=== PATIENT | male | born 1970 | race Caucasian/White ===

== ENCOUNTER 2016-07-20 12:31 | Emergency (ER) | payer SELFPAY ==
--- NOTE | 2016-07-20 12:41 | ER Document Report ---
ED Medical Screen (RME) - General Stated Complaint: POSSIBLE RIGHT ARM INJURY Time seen by provider: 12:40 Mode of Arrival: Ambulatory Information source: Patient Notes: 45-year-old male presents to ED for injury to his right hand. He was sorting out recycle material and accidentally hit a piece of metal and now has pain worse in the first and fourth finger states it feels like it's crunching when he opens his hand. I have greeted and performed a rapid initial assessment of this patient. A comprehensive ED assessment and evaluation of the patient, analysis of test results and completion of medical decision making process will be conducted by an additional ED providers. TRAVEL OUTSIDE OF THE [place] IN LAST 30 DAYS: No - Related Data Allergies/Adverse Reactions: permethrin Allergy (Verified 02/14/16 11:35) Past Medical History - Social History Family history: None - Past Medical History Cardiac Medical History: Reports: Hx Hypertension Denies: Hx Heart Attack Pulmonary Medical History: Reports: Hx Bronchitis, Hx COPD Denies: Hx Asthma, Hx Pneumonia Neurological Medical History: Reports: Hx Migraine, Hx Seizures GI Medical History: Denies: Hx Cirrhosis, Hx Gastroesophageal Reflux Disease Musculoskeltal Medical History: Denies Hx Arthritis, Reports Hx Musculoskeletal Trauma - right hand Psychiatric Medical History: Reports: Hx Bipolar Disorder, Hx Depression Traumatic Medical History: Reports: Hx Fractures - right hand Infectious Medical History: Reports: Hx C-Diff Past Surgical History: Reports: Hx Orthopedic Surgery - Right hand - Immunizations Immunizations up to date: Yes Hx Diphtheria, Pertussis, Tetanus Vaccination: Yes - 2014
[2016-07-20] MEDS ORDERED: OXYCODONE-ACETAMINOPHEN 5-325 MG TABLET PO ONE (12:42)
--- NOTE | 2016-07-20 14:09 | ER Document Report ---
ED General - General Chief Complaint: Hand Pain Stated Complaint: POSSIBLE RIGHT ARM INJURY Mode of Arrival: Ambulatory Notes: 45-year-old male here with complaints of right hand pain that started earlier today. He states that a large piece of a metal gear fell onto his hand while he was at work. He states that he tried to work through the pain but could not bear it anymore. He is not taking any medication for the pain. He has tried placing an ice pack on the area for the swelling. He denies any numbness tingling weakness but states that he is unable to move his fingers due to the pain. TRAVEL OUTSIDE OF THE [place] IN LAST 30 DAYS: No - Related Data Allergies/Adverse Reactions: permethrin Allergy (Verified 07/20/16 12:41) Past Medical History - General Information source: Patient - Social History Smoking Status: Current Every Day Smoker Chew tobacco use (# tins/day): No Frequency of alcohol use: None Drug Abuse: None Family History: CAD, CVA, DM, Hyperlipidemia, Hypertension, Malignancy Patient has suicidal ideation: No Patient has homicidal ideation: No - Past Medical History Cardiac Medical History: Reports: Hx Hypertension Denies: Hx Heart Attack Pulmonary Medical History: Reports: Hx Bronchitis, Hx COPD Denies: Hx Asthma, Hx Pneumonia Neurological Medical History: Reports: Hx Migraine, Hx Seizures Renal/ Medical History: Denies: Hx Peritoneal Dialysis GI Medical History: Denies: Hx Cirrhosis, Hx Gastroesophageal Reflux Disease Musculoskeltal Medical History: Denies Hx Arthritis, Reports Hx Musculoskeletal Trauma - right hand Psychiatric Medical History: Reports: Hx Bipolar Disorder, Hx Depression Traumatic Medical History: Reports: Hx Fractures - right hand Infectious Medical History: Reports: Hx C-Diff Past Surgical History: Reports: Hx Orthopedic Surgery - Right hand - Immunizations Immunizations up to date: Yes Hx Diphtheria, Pertussis, Tetanus Vaccination: Yes - 2014 Review of Systems - Review of Systems Notes: See history of present illness for pertinent positive review of systems; otherwise all review of systems have been reviewed and are negative Physical Exam - Vital signs Vitals: Temp Pulse Resp BP Pulse Ox 97.9 F 65 16 206/103 H 95 07/20/16 12:36 07/20/16 12:36 07/20/16 12:36 07/20/16 12:36 07/20/16 12:36 - Notes Notes: PHYSICAL EXAMINATION: GENERAL: Well-appearing and in no acute distress. HEAD: Atraumatic, normocephalic. EYES: Pupils equal round and reactive to light, extraocular movements intact, sclera anicteric, conjunctiva are normal. ENT: nares patent, oropharynx clear without exudates. Moist mucous membranes. NECK: Normal range of motion, supple without lymphadenopathy LUNGS: CTAB and equal. No wheezes rales or rhonchi. HEART: Regular rate and rhythm without murmurs ABDOMEN: Soft, no tenderness. No guarding, no rebound EXTREMITIES: Normal range of motion, no pitting edema. No cyanosis. There is mild to moderate swelling overlying the second to fifth MCP joints on the left hand with diffuse tenderness to palpation; there is no wrist tenderness to palpation; there are no lacerations or other lesions visualized NEUROLOGICAL: Cranial nerves grossly intact. Normal sensory/motor exams. PSYCH: Normal mood, normal affect. SKIN: Warm, Dry, normal turgor, no rashes or lesions noted Course - Re-evaluation Re-evalutation: 07/20/16 14:12 MEDICAL DECISION MAKING: Concern for sprain versus fracture versus dislocation X-ray does not show any acute fractures or dislocations Will give prescription for meloxicam and Percocet Instructed follow-up PCP or orthopedic surgery next few days Patient understands and agrees to the plan of care - Vital Signs Vital signs: Temp Pulse Resp BP Pulse Ox 97.9 F 65 16 206/103 H 95 07/20/16 12:36 07/20/16 12:36 07/20/16 12:36 07/20/16 12:36 07/20/16 12:36 Discharge - Discharge Clinical Impression: Right hand pain Condition: Good Disposition: HOME, SELF-CARE Additional Instructions: You were seen in the emergency department at [facility]. Your x- ray did not show any fractures. If you were given any sedating medications ( such as Percocet), be sure not to operate heavy machinery (example - driving) and be sure you are not too sedated to walk appropriately. Please followup with your primary physician and/or orthopedic doctor in the next few days for further management/evaluation. Please return to the emergency department for worsening of symptoms or any symptom that you deem to be concerning or life- threatening. Thank you for allowing us to be part of your care. Prescriptions: Oxycodone HCl/Acetaminophen [Percocet 5-325 mg Tablet] 1 tab PO Q6HP PRN #12 tab PRN Reason: Meloxicam 15 mg PO DAILYP PRN #7 tablet PRN Reason: For Pain
[2016-07-20 14:59] VITALS: BP 212/103
== END 2016-07-20 15:00 | disposition home or self-care (01) ==
LOC: ER 12:31
DX: M79.641 Pain in right hand (principal); M79.89 Other specified soft tissue disorders; W20.8XXA Other cause of strike by thrown, projected or falling object, initial encounter; Y99.0 Civilian activity done for income or pay; F17.200 Nicotine dependence, unspecified, uncomplicated; I10 Essential (primary) hypertension; J44.9 Chronic obstructive pulmonary disease, unspecified; Z98.890 Other specified postprocedural states; Z88.8 Allergy status to other drugs, medicaments and biological substances
CPT/HCPCS: 99283

== ENCOUNTER 2016-11-03 11:02 | Emergency (ER) | payer SELFPAY ==
--- NOTE | 2016-11-03 11:49 | ER Document Report ---
ED Psych Disorder / Suicide - General TRAVEL OUTSIDE OF THE [place] IN LAST 30 DAYS: No <SHYLA THOMAS - Last Filed: 11/03/16 14:21> <SERGO ALLEN - Last Filed: 11/03/16 17:41> - General Chief Complaint: Psych Problem Stated Complaint: SUICIDAL IDEATION Notes: Patient says he is here for substance abuse and mental health problems. Says he 's feeling suicidal. Patient says he's been on about a 4 day binge of alcohol, started the day after he went to his group meeting at [facility]. Patient is well known to us here in the emergency department. He says he's been smoking marijuana and using cocaine and abusing Xanax. Says he's having suicidal thoughts. After being interviewed, patient asked if I would give him his Suboxone, and I declined. (SHYLA THOMAS) - Related Data Allergies/Adverse Reactions: permethrin Allergy (Verified 07/20/16 12:41) Past Medical History - Social History Smoking Status: Current Every Day Smoker Chew tobacco use (# tins/day): No Frequency of alcohol use: Heavy Drug Abuse: Cocaine, Marijuana Family History: CAD, CVA, DM, Hyperlipidemia, Hypertension, Malignancy - Past Medical History Cardiac Medical History: Reports: Hx Hypertension Denies: Hx Heart Attack Pulmonary Medical History: Reports: Hx Bronchitis, Hx COPD Neurological Medical History: Reports: Hx Migraine, Hx Seizures Musculoskeltal Medical History: Denies Hx Arthritis, Reports Hx Musculoskeletal Trauma - right hand Psychiatric Medical History: Reports: Hx Bipolar Disorder, Hx Depression Traumatic Medical History: Reports: Hx Fractures - right hand Infectious Medical History: Reports: Hx C-Diff Past Surgical History: Reports: Hx Orthopedic Surgery - Right hand - Immunizations Immunizations up to date: Yes Hx Diphtheria, Pertussis, Tetanus Vaccination: Yes - 2014 <SHYLA THOMAS - Last Filed: 11/03/16 14:21> Review of Systems <SHYLA THOMAS - Last Filed: 11/03/16 14:21> <SERGO ALLEN - Last Filed: 11/03/16 17:41> - Review of Systems Notes: REVIEW OF SYSTEMS: CONSTITUTIONAL : Denies fever. EENT: Denies eye, ear, nose or mouth or throat pain or other symptoms. CARDIOVASCULAR: Denies chest pain. RESPIRATORY: Denies cough, chest congestion, or shortness of breath. GASTROINTESTINAL: Denies abdominal pain or nausea, vomiting, or diarrhea. GENITOURINARY: Denies difficulty or painful urinating, urinary frequency, blood in urine. SKIN: Denies rash or skin lesions. NEUROLOGICAL: Denies LOC or altered mental status. Denies sensory loss or motor deficits. ALL OTHER SYSTEMS REVIEWED AND NEGATIVE. (SHYLA THOMAS) Physical Exam - Vital signs Interpretation: Normal <SHYLA THOMAS - Last Filed: 11/03/16 14:21> <SERGO ALLEN - Last Filed: 11/03/16 17:41> - Vital signs Vitals: Temp Pulse Resp BP Pulse Ox 98.4 F 80 18 113/65 94 11/03/16 11:35 11/03/16 11:35 11/03/16 11:35 11/03/16 11:35 11/03/16 11:35 - Notes Notes: PHYSICAL EXAMINATION: GENERAL: Well-appearing, in no acute distress. Speech sounds intoxicated. Answers questions appropriately, however. HEAD: Atraumatic, normocephalic. EYES: Pupils equal round and reactive to light, extraocular movements intact. NECK: Normal range of motion, supple. LUNGS: Breath sounds clear except for an occasional scattered wheeze and equal bilaterally. HEART: Regular rate and rhythm without murmurs. ABDOMEN: Soft, nontender. No guarding or rebound. BACK: No tenderness throughout entire back. EXTREMITIES: Normal range of motion without pain. NEUROLOGICAL: Normal speech, normal gait, but asked under the influence/ intoxicated.. Normal sensory, motor, and reflex exams. Awake, alert, and oriented x3. PSYCH: Normal mood, normal affect. SKIN: Warm, dry, no rashes. (SHYLA THOMAS) Course - Laboratory Result Diagrams: 11/03/16 11:45 11/03/16 11:45 <SHYLA THOMAS - Last Filed: 11/03/16 14:21> - Laboratory Result Diagrams: 11/03/16 11:45 11/03/16 11:45 <SERGO ALLEN - Last Filed: 11/03/16 17:41> - Re-evaluation Re-evalutation: 11/03/16 12:27 Patient's drug screen is positive for amphetamines, cocaine, and marijuana. Alcohol level is pending. 11/03/16 12:46 Patient's alcohol level was surprisingly only 15. All the remainder of his lab studies are essentially normal. (SHYLA THOMAS) - Vital Signs Vital signs: Temp Pulse Resp BP Pulse Ox 98.4 F 80 18 113/65 94 11/03/16 11:35 11/03/16 11:35 11/03/16 11:35 11/03/16 11:35 11/03/16 11:35 - Laboratory Laboratory results interpreted by me: 11/03/16 11/03/16 11:45 11:45 RBC 3.78 L Hgb 12.1 L Hct 34.4 L RDW 14.4 H Glucose 73 L Direct Bilirubin 0.5 H Total Protein 8.5 H Salicylates < 1.0 L Acetaminophen < 10 L Discharge <SHLYA THOMAS - Last Filed: 11/03/16 14:21> <SERGO ALLEN - Last Filed: 11/03/16 17:41> - Discharge Clinical Impression: Substance abuse Condition: Stable Disposition: HOME, SELF-CARE Additional Instructions: CHRONIC ALCOHOLISM and ALCOHOL ABUSE: Your evaluation reveals evidence of chronic alcoholism, an addiction to alcohol. The tendency to alcoholism may be inherited. Chronic use of alcohol weakens muscles, causes fatty deposits in the liver , damages the stomach, makes you more prone to infections, and can cause defects in unborn children. In the long run, brain atrophy and cirrhosis of the liver result. You are also at greater risk for certain types of cancer, such as cancer of the mouth, throat, stomach, and liver. Counselling services are available to help you. In-hospital treatment programs often help. Support groups such as Alcoholics Anonymous can be very useful in beating this addiction. Your physician can make a referral for you. As alcoholics often are prone to other addictions, you should discuss your use of any other medications with the doctor. ALCOHOL WITHDRAWAL: Your symptoms are caused by alcohol withdrawal. After a period of frequent drinking, the brain and body are changed by the alcohol. When you quit or reduce your drinking, the nervous system becomes unstable. Withdrawal symptoms can start a few hours after your last drink, but sometimes don't begin until a couple of days later. Symptoms can include shakiness, sweating, insomnia, nausea , vomiting, fearfulness, hallucinations, and seizures. In addition to the acute effects of alcohol withdrawal, we often have to deal with the medical effects of alcoholism. These problems often include dehydration, stomach irritation, intestinal bleeding, low blood sugar, liver disease, and pancreas inflammation. Treatment for alcohol withdrawal includes mild sedatives, vitamins, and fluids. You need to be with someone who can help if symptoms become severe. Many patients can withdraw at home. Admission to the hospital or a detox facility may be necessary if withdrawal symptoms are severe and uncontrollable. Abstaining from alcohol is the only effective long-term treatment. If you start drinking again, you will not be able to control yourself after the first drink. Treatment programs are available. In addition, many alcoholics benefit from Alcoholics Anonymous or other support groups available through your counselor or advent director of scientific research. [employer] and [facility] are support groups for friends and family members of an alcoholic. Go to the emergency room if you develop persistent vomiting, severe abdominal pain, fever, shortness of breath, hallucinations, uncontrollable tremors, or seizures. COCAINE ABUSE: Cocaine causes many dangerous medical problems. Problems can occur even with "usual" amounts. Cocaine affects judgement, creating a sense of invulnerability. Cocaine users often make bad decisions that seem "great" at the time. Most cocaine users eventually will be hurt by bad job performance, damaged personal relations, crime, and unsafe sexual practices. Toxic effects of cocaine can include seizures, hallucinations, delusions, high blood pressure, heart damage, or sudden . There's always the risk of a "bad batch." But heart attacks, brain hemorrhages, or cardiac arrest can occur unpredictably even with "normal" use. Injection of cocaine is risky for abscesses, endocarditis (heart infection) , pneumonia, and AIDS. Withdrawal from cocaine often causes anxiety and drug cravings. Some users become paranoid and psychotic. Many treatment programs are available, but you must make the decision to quit. Medication can be prescribed to control the symptoms of cocaine toxicity (beta blockers or benzodiazepines). Withdrawal symptoms may require tranquilizers. AMPHETAMINE / METHAMPHETAMINE ABUSE: Amphetamines are addicting stimulants. Amphetamines overstimulate the nervous system and give a false feeling of power and mastery. These drugs may be obtained as prescription pills for weight loss, narcolepsy, or attention- deficit disorder. More often they're bought as an illegal street drug, methamphetamine (crank, crystal, speed). Using amphetamines repeatedly can lead to serious medical problems including malnutrition, severe depression, and paranoia. It can take increasing amounts to feel good. Eventually, there will be a "burn out." When you go off amphetamines there is a period of depression that may last for weeks or even months. High doses of amphetamines can cause seizures, confusion, hallucinations, delusions, high blood pressure, muscle damage, heart damage, or sudden . Many times these deadly complications occur even with "normal" doses. Injection of amphetamines is risky for developing abscesses, endocarditis ( heart infection), pneumonia, and AIDS. Withdrawal from amphetamines often causes anxiety, depression, and drug cravings. Some users become paranoid and psychotic. There may be cramps, nausea , and vomiting. Many treatment programs are available, but you must make the decision to quit. Medication can be prescribed to control the symptoms of amphetamine toxicity (beta blockers or benzodiazepines). Withdrawal symptoms may require tranquilizers. DEPRESSION: Your evaluation reveals that you have mental depression. While symptoms may be vague, they often include disturbance of sleep, fatigue, loss of appetite , and general loss of interest in life. While depression may be a side effect of drugs, or a reaction to a major change in your life, many cases have no known cause. If depression is acute, and related to a major loss in your life, you can expect it to clear completely with time. If you have been depressed a long time , are prone to repeated bouts of depression or low mood, or have been thinking of suicide, get help. Depression can be treated with anti-depressant medication and counselling. Long-term depression will often take a few weeks to clear, even with appropriate medication. Follow-up care is important. SUICIDAL IDEATION: Suicidal ideation is a common medical term for thoughts about suicide, which may be as detailed as a formulated plan, without the suicidal act itself. Although most people who undergo suicidal ideation do not commit suicide, some go on to make suicide attempts. The range of suicidal ideation varies greatly from fleeting to detailed planning, role playing, and unsuccessful attempts. While thoughts about suicide are common, most people do not carry out serious actions to commit suicide. Based upon your evaluation and discussion with you, we do not believe you are currently at risk to act upon your thoughts of suicide. You have agreed to return to the Emergency Department, at any time , if you feel inclined to act upon your suicidal thoughts. FOLLOW-UP CARE: Please follow-up with [facility] your mental health and substance abuse outpatient provider on Saturday. If you experience worsening or a significant change in your symptoms, notify the physician immediately or return to the Emergency Department at any time for re-evaluation. . Referrals: [facility] [Primary Care Provider] - Follow up as needed [facility] [Outside] - 11/05/16
[2016-11-03 11:55] LABS: APPEARANCE,URINE CLEAR; BILIRUBIN,URINE NEGATIVE (NEGATIVE); GLUCOSE, URINE NEGATIVE (NEGATIVE); KETONES,URINE NEGATIVE (NEGATIVE); LEUKOCYTE ESTERASE,URINE NEGATIVE (NEGATIVE); NITRITE,URINE NEGATIVE (NEGATIVE); PROTEIN,URINE NEGATIVE (NEGATIVE); URINE SPECIFIC GRAVITY 1.003; UROBILINOGEN,URINE NEGATIVE mg/dL (<2.0)
[2016-11-03 12:07] LABS: URINE BARBITURATES SCREEN NEGATIVE; URINE METHADONE SCREEN NEGATIVE; URINE OPIATES LOW NEGATIVE; URINE PHENCYCLIDINE SCREEN NEGATIVE
[2016-11-03 12:15] LABS: ABSOLUTE EOSINOPHILS # (AUTO) 0.1 10^3/uL (0.0-0.6); ABSOLUTE LYMPHOCYTES (AUTO) 2.2 10^3/uL (0.5-4.7); ABSOLUTE MONOCYTES (AUTO) 0.6 10^3/uL (0.1-1.4); ABSOLUTE NEUT (AUTO) 7.5 10^3/uL (1.7-8.2); BASOPHILS % (AUTO) 0.3 % (0-2); HEMATOCRIT 34.4 % (37.9-51.0); HEMOGLOBIN 12.1 g/dL (13.5-17.0); HGB HCT DIFFERENCE 1.9; LYMPHOCYTES % (AUTO) 21.2 % (13-45); MEAN CORPUSCULAR HGB CONC 35.2 g/dL (32.0-36.0); MEAN CORPUSCULAR VOLUME 91 fl (80-97); MONOCYTES % (AUTO) 5.7 % (3-13); RED BLOOD COUNT 3.78 10^6/uL (4.35-5.55); RED CELL DISTRIBUTION WIDTH 14.4 % (11.5-14.0); SEGMENTED NEUTROPHILS % (AUTO) 71.8 % (42-78); WHITE BLOOD COUNT 10.5 10^3/uL (4.0-10.5)
[2016-11-03 12:36] LABS: ALANINE AMINOTRANSFERASE 33 U/L (21-72); ALBUMIN 4.4 g/dL (3.5-5.0); ALCOHOL 15 mg/dL (NONE DETECTED); ALKALINE PHOSPHATASE 81 U/L (38-126); ANION GAP 14 (5-19); ASPARTATE AMINO TRANSFERASE 44 U/L (17-59); BILIRUBIN,DIRECT 0.5 mg/dL (0.0-0.4); BILIRUBIN,TOTAL 0.8 mg/dL (0.2-1.3); BLOOD UREA NITROGEN 14 mg/dL (7-20); CALCIUM 9.7 mg/dL (8.4-10.2); CARBON DIOXIDE 25 mmol/L (22-30); CHLORIDE 99 mmol/L (98-107); CREATININE RESULT 0.98 mg/dL (0.52-1.25); GLUCOSE 73 mg/dL (75-110); LIPASE 85.2 U/L (23-300); POTASSIUM 3.6 mmol/L (3.6-5.0); SODIUM 137.8 mmol/L (137-145); TOTAL PROTEIN 8.5 g/dL (6.3-8.2)
--- NOTE | 2016-11-03 15:08 | EKG REPORT ---
SEVERITY:- BORDERLINE ECG - SINUS RHYTHM BORDERLINE PROLONGED QT INTERVAL : Confirmed by: Oziel Trevino MD 03-Nov-2016 15:07:59
--- NOTE | 2016-11-03 17:37 | PSYCHOLOGICAL NOTE ---
Psych Note - Psych Note Psych Note: Patient says he is here for substance abuse and mental health problems. Says he 's feeling suicidal. Patient says he's been on about a 4 day binge of alcohol, started the day after he went to his group meeting at [facility]. Patient is well known to us here in the emergency department. He says he's been smoking marijuana and using cocaine and abusing Xanax. Says he's having suicidal thoughts. Patient disclosed that he "is trying to kill himself with alcohol and drugs." Patient then confirms that he wanted to get sober. When clinician offered to provide resources in treatment centers that patient can attend voluntarily, the patient states that he has all the information he needs for treatment for substance abuse. When asked if he was still interested in sobriety, patient shrugged his shoulders and stated that he goes to [facility] but they were closed today so he came here. Patient states he is depressed. When clinician attempted to psychoeducate patient on chemical reactions in the brain to substance abuse and resulting depleted neurotransmitters leading to depression. Patient became agitated and stated he was not going to get any help and he would just like to leave. Patient states he knows how to get sober. Patient is alert and orientated to person, place, time and circumstance. Mood is irritated with congruent affect. Patient endorses suicidal ideation stating he is trying to kill himself with drugs. Patient denies homicidal ideation. Patient denies auditory and visual hallucinations; patient is not demonstrating behaviour what would be congruent to responding to internal stimuli. No delusions are noted. Thought process is organized and linear. Conversational speech varied from soft to loud once agitated. Eye contact was poor. Intellectual abilities appear to be within average range. Attention and concentration is fair. Insight, judgment, and impulse control is fair. Polysubstance abuse r/o 311 (F32.9) unspecified depressive disorder patient endorses depression at this time it is unclear if depression is connected to substance abuse. Impression\\plan: Patient is psychiatrically cleared for discharge. Patient does not meet IVC criteria per [place] GS 120 2C. Patient endorses suicidal ideation stating that he is attempted to kill himself with drugs and alcohol however then states that he is requesting assistance in sobriety. Patient became agitated when offered resources for sobriety and refused stating he knows how to achieve sobriety and that [facility]. Attending physician noted the patient requested Suboxone after medical evaluation. At this time patient is demonstrating behaviors congruent with attempting to achieve secondary gain. Dr. Lorenzo was consulted on the care and management of this patient attending physician is in agreement with recommendations and disposition.
[2016-11-03 18:51] VITALS: BP 140/84
== END 2016-11-03 19:02 | disposition home or self-care (01) ==
LOC: ER 11:02
DX: F12.10 Cannabis abuse, uncomplicated (principal); F14.10 Cocaine abuse, uncomplicated; F13.10 Sedative, hypnotic or anxiolytic abuse, uncomplicated; R45.851 Suicidal ideations; F17.200 Nicotine dependence, unspecified, uncomplicated; I10 Essential (primary) hypertension; J44.9 Chronic obstructive pulmonary disease, unspecified; Z88.8 Allergy status to other drugs, medicaments and biological substances
CPT/HCPCS: 36415; 80053; 80307; 81001; 83690; 85025; 93005; 93010; 99285

== ENCOUNTER 2016-12-31 04:57 | Emergency (ER) | payer SELFPAY ==
[2016-12-31 05:54] LABS: ABSOLUTE EOSINOPHILS # (AUTO) 0.1 10^3/uL (0.0-0.6); ABSOLUTE LYMPHOCYTES (AUTO) 2.1 10^3/uL (0.5-4.7); ABSOLUTE MONOCYTES (AUTO) 0.6 10^3/uL (0.1-1.4); ABSOLUTE NEUT (AUTO) 5.2 10^3/uL (1.7-8.2); BASOPHILS % (AUTO) 0.5 % (0-2); EOSINOPHILS % (AUTO) 1.8 % (0-6); HEMATOCRIT 41.5 % (37.9-51.0); HEMOGLOBIN 13.7 g/dL (13.5-17.0); HGB HCT DIFFERENCE -0.4; LYMPHOCYTES % (AUTO) 26.2 % (13-45); MEAN CORPUSCULAR HEMOGLOBIN 31.3 pg (27.0-33.4); MEAN CORPUSCULAR VOLUME 95 fl (80-97); RED BLOOD COUNT 4.38 10^6/uL (4.35-5.55); RED CELL DISTRIBUTION WIDTH 14.5 % (11.5-14.0); SEGMENTED NEUTROPHILS % (AUTO) 64.5 % (42-78); WHITE BLOOD COUNT 8.1 10^3/uL (4.0-10.5)
[2016-12-31 06:02] LABS: ALANINE AMINOTRANSFERASE 31 U/L (21-72); ALBUMIN 4.7 g/dL (3.5-5.0); ALCOHOL < 10 mg/dL (NONE DETECTED); ALKALINE PHOSPHATASE 76 U/L (38-126); ANION GAP 12 (5-19); ASPARTATE AMINO TRANSFERASE 37 U/L (17-59); BILIRUBIN,DIRECT 0.4 mg/dL (0.0-0.4); BILIRUBIN,TOTAL 0.7 mg/dL (0.2-1.3); BLOOD UREA NITROGEN 14 mg/dL (7-20); CALCIUM 9.5 mg/dL (8.4-10.2); CARBON DIOXIDE 27 mmol/L (22-30); CHLORIDE 106 mmol/L (98-107); GLUCOSE 126 mg/dL (75-110); POTASSIUM 3.3 mmol/L (3.6-5.0); SODIUM 144.9 mmol/L (137-145); TOTAL PROTEIN 8.7 g/dL (6.3-8.2)
[2016-12-31] MEDS ORDERED: LISINOPRIL 10 MG TABLET PO ONE (08:02)
[2016-12-31] MEDS ORDERED: HYDROCHLOROTHIAZIDE 50 MG TABLET PO ONE (08:02)
--- NOTE | 2016-12-31 08:21 | EKG REPORT ---
SEVERITY:- BORDERLINE ECG - SINUS RHYTHM BORDERLINE PROLONGED QT INTERVAL : Confirmed by: Oziel Trevino MD 31-Dec-2016 08:20:45
--- NOTE | 2016-12-31 08:41 | ER Document Report ---
ED General - General Chief Complaint: Suicidal Ideation Stated Complaint: SUICIDIAL IDEATION Time Seen by Provider: 12/31/16 06:03 Mode of Arrival: Ambulatory Information source: Patient Notes: 46-year-old male history of suicidal ideations presents with complaints of suicidal ideation however the patient admits that he does not actually want to himself or others and that he just wants to go [facility] TRAVEL OUTSIDE OF THE [place] IN LAST 30 DAYS: No - HPI Onset: Just prior to arrival Onset/Duration: Sudden Quality of pain: No pain Severity: None Pain Level: Denies Associated symptoms: None Exacerbated by: Denies Relieved by: Denies Similar symptoms previously: Yes Recently seen / treated by doctor: Yes - Related Data Allergies/Adverse Reactions: permethrin Allergy (Verified 12/31/16 05:33) Past Medical History - Social History Smoking Status: Current Every Day Smoker Cigarette use (# per day): Yes Chew tobacco use (# tins/day): No Smoking Education Provided: No Frequency of alcohol use: Heavy Drug Abuse: Cocaine Family History: CAD, CVA, DM, Hyperlipidemia, Hypertension, Malignancy - Past Medical History Cardiac Medical History: Reports: Hx Hypertension Denies: Hx Heart Attack Pulmonary Medical History: Reports: Hx Bronchitis, Hx COPD Neurological Medical History: Reports: Hx Migraine, Hx Seizures Musculoskeltal Medical History: Denies Hx Arthritis, Reports Hx Musculoskeletal Trauma - right hand Psychiatric Medical History: Reports: Hx Bipolar Disorder, Hx Depression Traumatic Medical History: Reports: Hx Fractures - right hand Infectious Medical History: Reports: Hx C-Diff Past Surgical History: Reports: Hx Orthopedic Surgery - Right hand - Immunizations Immunizations up to date: Yes Hx Diphtheria, Pertussis, Tetanus Vaccination: Yes - 2014 Review of Systems - Review of Systems Notes: REVIEW OF SYSTEMS: CONSTITUTIONAL : Denies fever, chills, or sweats. Denies recent illness. EENT: Denies eye, ear, throat, or mouth pain or symptoms. Denies nasal or sinus congestion or discharge. Denies throat, tongue, or mouth swelling or difficulty swallowing. CARDIOVASCULAR: Denies chest pain. Denies palpitations or racing or irregular heart beat. Denies ankle edema. RESPIRATORY: Denies cough, cold, or chest congestion. Denies shortness of breath, difficulty breathing, or wheezing. GASTROINTESTINAL: Denies abdominal pain or distention. Denies nausea, vomiting , or diarrhea. Denies blood in vomitus, stools, or per rectum. Denies black, tarry stools. Denies constipation. GENITOURINARY: Denies difficulty urinating, painful urination, burning, frequency, blood in urine, or discharge. MUSCULOSKELETAL: Denies back or neck pain or stiffness. Denies joint pain or swelling. SKIN: Denies rash, lesions or sores. HEMATOLOGIC : Denies easy bruising or bleeding. LYMPHATIC: Denies swollen, enlarged glands. NEUROLOGICAL: Denies confusion or altered mental status. Denies passing out or loss of consciousness. Denies dizziness or lightheadedness. Denies headache. Denies weakness or paralysis or loss of use of either side. Denies problems with gait or speech. Denies sensory loss, numbness, or tingling. Denies seizures. PSYCHIATRIC: Denies anxiety or stress. Denies depression, suicidal ideation, or homicidal ideation. ALL OTHER SYSTEMS REVIEWED AND NEGATIVE. Dictation was performed using [employer] voice recognition software PHYSICAL EXAMINATION: GENERAL: Well-appearing, well-nourished and in no acute distress. HEAD: Atraumatic, normocephalic. EYES: Pupils equal round and reactive to light, extraocular movements intact, sclera anicteric, conjunctiva are normal. ENT: Nares patent, oropharynx clear without exudates. Moist mucous membranes. NECK: Normal range of motion, supple without lymphadenopathy LUNGS: Breath sounds clear to auscultation bilaterally and equal. No wheezes rales or rhonchi. HEART: Regular rate and rhythm without murmurs ABDOMEN: Soft, nontender, nondistended abdomen. No guarding, no rebound. No masses appreciated. Musculoskeletal: Normal range of motion, no pitting or edema. No cyanosis. NEUROLOGICAL: Cranial nerves grossly intact. Normal speech, normal gait. Normal sensory, motor exams PSYCH: Normal mood, normal affect. SKIN: Warm, Dry, normal turgor, no rashes or lesions noted. Physical Exam - Vital signs Vitals: Resp Pulse Ox 14 98 12/31/16 05:14 12/31/16 05:14 Course - Re-evaluation Re-evalutation: 12/31/16 08:39 On my evaluation the patient denies any suicidal or homicidal ideations, he does not appear to be intoxicated or in any distress. He is resting here because he states [facility] not [facility] yet so he can go over there to be evaluated by his counselor. I had mental health evaluate the patient they agree with my assessment and discharge disposition After performing a Medical Screening Examination, I estimate there is LOW risk for any life threatening mental health issues. At this time the patient looks extremely well and has not attempted severe self harm. I have reevaluated this patient multiple times and no significant life threatening changes are noted. The patient and I have discussed the diagnosis and risks, and we agree with discharging home with close follow-up with the understanding that symptoms and presentations can change. We also discussed returning to the Emergency Department immediately if new or worsening symptoms occur. We have discussed the symptoms which are most concerning (hallucinations, thoughts or actions of self harm or harm to others) that necessitate immediate return. - Vital Signs Vital signs: Temp Pulse Resp BP Pulse Ox 15 176/113 H 98 12/31/16 07:01 12/31/16 07:01 12/31/16 07:01 - Laboratory Result Diagrams: 12/31/16 05:25 12/31/16 05:25 Laboratory results interpreted by me: 12/31/16 12/31/16 05:25 05:25 RDW 14.5 H Potassium 3.3 L Glucose 126 H Total Protein 8.7 H Salicylates < 1.0 L Acetaminophen < 10 L - EKG Interpretation by Me EKG shows normal: Sinus rhythm, [place], Intervals, QRS Complexes Discharge - Discharge Clinical Impression: Suicidal ideation Hypertension Qualifiers: Hypertension type: essential hypertension Qualified Code(s): I10 - Essential ( primary) hypertension Condition: Stable Disposition: PSYCH HOSP/UNIT Additional Instructions: Follow up with your physician tomorrow for further care or return to the ED IMMEDIATELY if symptoms worsen or new concerns occur. If you cannot afford to follow up with your primary care physician a list of low cost clinics have been provided at the end of your discharge papers as well.
--- NOTE | 2016-12-31 08:42 | ER Document Report ---
ED Psych Disorder / Suicide - General Chief Complaint: Suicidal Ideation Stated Complaint: SUICIDIAL IDEATION Time Seen by Provider: 12/31/16 06:03 Mode of Arrival: Ambulatory Information source: Patient, [facility] [place] Records TRAVEL OUTSIDE OF THE [place] IN LAST 30 DAYS: No - HPI Patient complains to provider of: Homicidal ideation - pt now denies, Suicidal ideation - pt now denies Onset: Just prior to arrival Onset was: Sudden Normal mood: Yes Associated symptoms: Normal affect, Normal mood Notes: Patient is a 46 year old male who presents seeking assistance with a crack binge x4 or so days. Patient reported SI and HI upon arrival; however, provided no specifics in regards to intent, plans, or means. Patient has a long history of episodes similar to the current in etiology. Patient this morning states he called mobile crisis, but could not understand the lady, got frustrated and called 911. Patient this morning denies suicidal and or homicidal ideations. Patient states he does not want to harm himself or anyone else. Patient states he just needs to walk over to [facility] and talk to his therapist and pursue a detox bed through their facility. Patient is A&O. Mood is euthymic with congruent affect. Patient denies suicidal /homicidal ideations, intent, plan, or means. Patient denies A/V H; delusions not noted. Thought processes were organized and rational. Conversational speech was WNL for prosody. Intellectual abilities were estimated within average range. Attention and focus were fair. Insight was fair, judgment and impulse control were poor. 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 Patient demonstrates good decision making skills aeb identifying his needs at this time, which include presenting to his provider at [facility], engaging in group therapy, and going to detox (if available). Patient denies SI/HI. I consulted with Dr. Lorenzo in regards to the care and management of this patient. - Related Data Allergies/Adverse Reactions: permethrin Allergy (Verified 12/31/16 05:33) Past Medical History - Social History Smoking Status: Current Every Day Smoker Frequency of alcohol use: Heavy Drug Abuse: Cocaine Family History: CAD, CVA, DM, Hyperlipidemia, Hypertension, Malignancy - Past Medical History Cardiac Medical History: Reports: Hx Hypertension Denies: Hx Heart Attack Pulmonary Medical History: Reports: Hx Bronchitis, Hx COPD Neurological Medical History: Reports: Hx Migraine, Hx Seizures Musculoskeltal Medical History: Denies Hx Arthritis, Reports Hx Musculoskeletal Trauma - right hand Psychiatric Medical History: Reports: Hx Bipolar Disorder, Hx Depression Traumatic Medical History: Reports: Hx Fractures - right hand Infectious Medical History: Reports: Hx C-Diff Past Surgical History: Reports: Hx Orthopedic Surgery - Right hand - Immunizations Immunizations up to date: Yes Hx Diphtheria, Pertussis, Tetanus Vaccination: Yes - 2014 Physical Exam - Vital signs Vitals: Resp Pulse Ox 14 98 12/31/16 05:14 12/31/16 05:14 Course - Vital Signs Vital signs: Temp Pulse Resp BP Pulse Ox 15 176/113 H 98 12/31/16 07:01 12/31/16 07:01 12/31/16 07:01 - Laboratory Result Diagrams: 12/31/16 05:25 12/31/16 05:25 Laboratory results interpreted by me: 12/31/16 12/31/16 05:25 05:25 RDW 14.5 H Potassium 3.3 L Glucose 126 H Total Protein 8.7 H Salicylates < 1.0 L Acetaminophen < 10 L Discharge - Discharge Clinical Impression: Drug abuse, Hypertension, Suicidal ideation Condition: Stable Disposition: PSYCH HOSP/UNIT Additional Instructions: Follow up with your physician tomorrow for further care or return to the ED IMMEDIATELY if symptoms worsen or new concerns occur. If you cannot afford to follow up with your primary care physician a list of low cost clinics have been provided at the end of your discharge papers as well. Referrals: [facility] [Provider Group] - Follow up as needed
[2016-12-31 09:46] VITALS: BP 193/115
== END 2016-12-31 09:20 ==
LOC: ER 04:57
DX: R45.851 Suicidal ideations (principal); F17.210 Nicotine dependence, cigarettes, uncomplicated; I10 Essential (primary) hypertension; J44.9 Chronic obstructive pulmonary disease, unspecified
CPT/HCPCS: 36415; 80053; 80307; 85025; 93005; 93010; 99285

== ENCOUNTER 2017-01-29 22:44 | Emergency (ER) | payer SELFPAY ==
[2017-01-30] MEDS ORDERED: CLONIDINE HCL 0.1 MG TABLET PO ONE (00:09)
[2017-01-30] MEDS ORDERED: LISINOPRIL 10 MG TABLET PO ONE (00:09)
[2017-01-30] MEDS ORDERED: LISINOPRIL 5 MG TABLET PO ONE (00:09)
--- NOTE | 2017-01-30 00:13 | ER Document Report ---
ED General - General Chief Complaint: Blood Pressure Problem Stated Complaint: BLOOD PRESSURE PROBLEMS Time Seen by Provider: 01/30/17 00:05 Notes: 46-year-old male with hypertension on 3 drugs presents with moderate intensity posterior headache and neck pain gradual onset today at 4:00 with no photophobia focal neurologic symptoms or chest pain. He has been off his blood pressure meds not including metoprolol for 4 days because he ran out of them has no refills and has no money. TRAVEL OUTSIDE OF THE [place] IN LAST 30 DAYS: Yes - Related Data Allergies/Adverse Reactions: permethrin Allergy (Verified 12/31/16 05:33) Past Medical History - General Information source: Patient - Social History Smoking Status: Current Some Day Smoker Family History: CAD, CVA, DM, Hyperlipidemia, Hypertension, Malignancy - Past Medical History Cardiac Medical History: Reports: Hx Hypertension Denies: Hx Heart Attack Pulmonary Medical History: Reports: Hx Bronchitis, Hx COPD Neurological Medical History: Reports: Hx Migraine, Hx Seizures Renal/ Medical History: Denies: Hx Peritoneal Dialysis Musculoskeltal Medical History: Denies Hx Arthritis, Reports Hx Musculoskeletal Trauma - right hand Psychiatric Medical History: Reports: Hx Bipolar Disorder, Hx Depression Traumatic Medical History: Reports: Hx Fractures - right hand Infectious Medical History: Reports: Hx C-Diff Past Surgical History: Reports: Hx Orthopedic Surgery - Right hand - Immunizations Immunizations up to date: Yes Hx Diphtheria, Pertussis, Tetanus Vaccination: Yes - 2014 Review of Systems - Review of Systems Notes: REVIEW OF SYSTEMS GEN: Denies fever, chills, weight loss ENT: Denies sore throat, nasal discharge, ear pain EYES: Denies blurry vision, eye pain, discharge CV: Denies chest pain, palpitations, edema RESP: Denies cough, shortness of breath, wheezing GI: Denies abdominal pain, nausea, vomiting, diarrhea MSK: Denies joint pain/swelling, edema, SKIN: Denies rash, skin lesions LYMPH: Denies swollen glands/lymph nodes NEURO: D thick vague dizziness PSYCH: Denies depression, suicidal or homicidal ideation PHYSICAL EXAMINATION General: No acute distress, well-nourished Head: Atraumatic, normocephalic ENT: Mouth normal, oropharynx moist, no exudates or tonsillar enlargement Eyes: Conjunctiva normal, pupils equal, lids normal Neck: No JVD, supple, no guarding CVS: Normal rate, regular rhythm, no murmurs Resp: No resp distress, equal and normal breath sounds bilaterally GI: Nondistended, soft, no tenderness to palpation, no rebound or guarding Ext: No deformities, no edema, normal range of motion in upper and lower ext Back: No CVA or midline TTP Skin: No rash, warm Lymphatic: No lymphadeopathy noted Neuro: Awake, alert. Face symmetric. GCS 15. No pronator drift. Gait normal. Physical Exam - Vital signs Vitals: Temp Pulse Resp BP Pulse Ox 98.5 F 65 20 207/106 H 97 01/29/17 22:59 01/29/17 22:59 01/29/17 22:59 01/29/17 22:59 01/29/17 22:59 Course - Re-evaluation Re-evalutation: 01/30/17 01:27 Presents with headache and hypertension with no focal neurologic symptoms on the setting of noncompliance with his meds secondary to social issues. He has no signs of stroke and no symptoms to suggest acute coronary syndrome aortic dissection or other hypertensive emergency. He was given his clonidine and lisinopril in the ED, his headache improved with ibuprofen he was discharged with prescriptions, short course, for the 2 medicines he ran out of. I have discussed with the patient there likely diagnosis, aftercare plan, follow-up plans and my usual and customary return precautions. They verbalized understanding of this. - Vital Signs Vital signs: Temp Pulse Resp BP Pulse Ox 98.0 F 64 20 168/91 H 95 01/30/17 00:51 01/30/17 00:51 01/29/17 22:59 01/30/17 00:51 01/30/17 00:51 Discharge - Discharge Clinical Impression: Hypertension Qualifiers: Hypertension type: unspecified Qualified Code(s): I10 - Essential (primary) hypertension Condition: Good Disposition: HOME, SELF-CARE Instructions: High Blood Pressure ([facility]) Additional Instructions: Your headache is likely to the high blood pressure. Will prescribe a short course of her blood pressure medication. Please purchase them and begin taking them tomorrow. Prescriptions: Clonidine HCl [Catapres] 0.1 mg PO DAILY #10 tablet Lisinopril/Hydrochlorothiazide [Lisinopril-Hctz 20-12.5 mg Tab] 1 each PO DAILY #10 tablet
[2017-01-30 00:52] VITALS: BP 168/91
== END 2017-01-30 01:05 | disposition home or self-care (01) ==
LOC: ER 22:44
DX: I10 Essential (primary) hypertension (principal); T46.4X6A Underdosing of angiotensin-converting-enzyme inhibitors, initial encounter; T46.5X6A Underdosing of other antihypertensive drugs, initial encounter; Z91.120 Patient's intentional underdosing of medication regimen due to financial hardship; Z91.14 Patient's other noncompliance with medication regimen; R51 Headache; M54.2 Cervicalgia; J44.9 Chronic obstructive pulmonary disease, unspecified; F17.200 Nicotine dependence, unspecified, uncomplicated; Z88.8 Allergy status to other drugs, medicaments and biological substances
CPT/HCPCS: 99283

== ENCOUNTER 2017-02-21 14:28 | Emergency (ER) | payer SELFPAY ==
--- NOTE | 2017-02-21 14:47 | ER Document Report ---
ED Medical Screen (RME) - General Chief Complaint: Psych Problem Stated Complaint: BARB BARRIGA Time Seen by Provider: 02/21/17 14:39 Mode of Arrival: Ambulatory Information source: Patient, Outside Facility Records Notes: 46-year-old male history of depression and suicidal ideations presents with complaints of wanting to hurt himself. Patient notes on Saturday he tried to hang himself but family members intervened. Patient also notes that he has a history of opioid abuse heroin abuse benzo abuse and alcohol abuse. Patient last drank 2 nights ago last use benzos today I have greeted and performed a rapid initial assessment of this patient. A comprehensive ED assessment and evaluation of the patient, analysis of test results and completion of the medical decision making process will be conducted by additional ED providers. PHYSICAL EXAMINATION: GENERAL: Well-appearing, well-nourished and in no acute distress. HEAD: Atraumatic, normocephalic. EYES: Pupils equal round extraocular movements intact, conjunctiva are normal. ENT: Nares patent NECK: Normal range of motion LUNGS: No respiratory distress Musculoskeletal: Normal range of motion NEUROLOGICAL: Normal speech, normal gait. PSYCH: Normal mood, normal affect. SKIN: Warm, Dry, normal turgor, no rashes or lesions noted. TRAVEL OUTSIDE OF THE [place] IN LAST 30 DAYS: No - Related Data Allergies/Adverse Reactions: permethrin Allergy (Verified 12/31/16 05:33) Past Medical History - Social History Family history: None - Past Medical History Cardiac Medical History: Reports: Hx Hypertension Denies: Hx Heart Attack Pulmonary Medical History: Reports: Hx Bronchitis, Hx COPD Neurological Medical History: Reports: Hx Migraine, Hx Seizures Renal/ Medical History: Denies: Hx Peritoneal Dialysis Musculoskeltal Medical History: Denies Hx Arthritis, Reports Hx Musculoskeletal Trauma - right hand Psychiatric Medical History: Reports: Hx Bipolar Disorder, Hx Depression Traumatic Medical History: Reports: Hx Fractures - right hand Infectious Medical History: Reports: Hx C-Diff Past Surgical History: Reports: Hx Orthopedic Surgery - Right hand - Immunizations Immunizations up to date: Yes Hx Diphtheria, Pertussis, Tetanus Vaccination: Yes - 2014 Physical Exam - Vital signs Vitals: Temp Pulse Resp BP Pulse Ox 98.6 F 62 16 157/97 H 97 02/21/17 14:33 02/21/17 14:33 02/21/17 14:33 02/21/17 14:33 02/21/17 14:33 Course - Vital Signs Vital signs: Temp Pulse Resp BP Pulse Ox 98.6 F 62 16 157/97 H 97 02/21/17 14:33 02/21/17 14:33 02/21/17 14:33 02/21/17 14:33 02/21/17 14:33
[2017-02-21 16:05] LABS: ABSOLUTE BASOPHILS # (AUTO) 0.1 10^3/uL (0.0-0.2); ABSOLUTE EOSINOPHILS # (AUTO) 0.2 10^3/uL (0.0-0.6); ABSOLUTE LYMPHOCYTES (AUTO) 4.2 10^3/uL (0.5-4.7); ABSOLUTE MONOCYTES (AUTO) 0.5 10^3/uL (0.1-1.4); ABSOLUTE NEUT (AUTO) 5.2 10^3/uL (1.7-8.2); EOSINOPHILS % (AUTO) 2.2 % (0-6); HEMATOCRIT 39.5 % (37.9-51.0); HEMOGLOBIN 13.2 g/dL (13.5-17.0); HGB HCT DIFFERENCE 0.1; LYMPHOCYTES % (AUTO) 40.8 % (13-45); MEAN CORPUSCULAR HGB CONC 33.3 g/dL (32.0-36.0); MEAN CORPUSCULAR VOLUME 96 fl (80-97); MONOCYTES % (AUTO) 5.2 % (3-13); RED BLOOD COUNT 4.11 10^6/uL (4.35-5.55); RED CELL DISTRIBUTION WIDTH 14.7 % (11.5-14.0); SEGMENTED NEUTROPHILS % (AUTO) 50.8 % (42-78); WHITE BLOOD COUNT 10.2 10^3/uL (4.0-10.5)
[2017-02-21 16:08] LABS: APPEARANCE,URINE SLIGHTLY-CLOUDY; BILIRUBIN,URINE NEGATIVE (NEGATIVE); GLUCOSE, URINE NEGATIVE (NEGATIVE); KETONES,URINE NEGATIVE (NEGATIVE); LEUKOCYTE ESTERASE,URINE NEGATIVE (NEGATIVE); NITRITE,URINE NEGATIVE (NEGATIVE); PROTEIN,URINE NEGATIVE (NEGATIVE); URINE SPECIFIC GRAVITY 1.004; UROBILINOGEN,URINE NEGATIVE mg/dL (<2.0)
--- NOTE | 2017-02-21 16:23 | ER Document Report ---
ED Psych Disorder / Suicide - General Chief Complaint: Psych Problem Stated Complaint: BARB BARRIGA Time Seen by Provider: 02/21/17 14:39 Mode of Arrival: Ambulatory Notes: The patient is a 46-year-old male, past medical history schizophrenia, bipolar, borderline personality disorder, ADD, chronic alcoholic, polysubstance abuser, presents with suicidal thoughts. He is also hearing voices. He states that he is depressed and has been drinking alcohol, using benzos and heroin in the past few days in an attempt to kill himself. He has had multiple similar ER visits. Patient denies chest pain, shortness of breath, nausea, vomiting, headache, blurry vision, fevers or urinary symptoms. TRAVEL OUTSIDE OF THE [place] IN LAST 30 DAYS: No - Related Data Allergies/Adverse Reactions: permethrin Allergy (Verified 12/31/16 05:33) Past Medical History - General Information source: Patient, Outside Facility Records - Social History Smoking Status: Current Every Day Smoker Chew tobacco use (# tins/day): No Frequency of alcohol use: Heavy Drug Abuse: Cocaine, Heroin, Marijuana, Prescription drugs, Other Family History: CAD, CVA, DM, Hyperlipidemia, Hypertension, Malignancy Patient has suicidal ideation: Yes Patient has homicidal ideation: No - Past Medical History Cardiac Medical History: Reports: Hx Hypertension Denies: Hx Heart Attack Pulmonary Medical History: Reports: Hx Bronchitis, Hx COPD Neurological Medical History: Reports: Hx Migraine, Hx Seizures Renal/ Medical History: Denies: Hx Peritoneal Dialysis Musculoskeltal Medical History: Denies Hx Arthritis, Reports Hx Musculoskeletal Trauma - right hand Psychiatric Medical History: Reports: Hx Bipolar Disorder, Hx Depression Traumatic Medical History: Reports: Hx Fractures - right hand Infectious Medical History: Reports: Hx C-Diff Past Surgical History: Reports: Hx Orthopedic Surgery - Right hand - Immunizations Immunizations up to date: Yes Hx Diphtheria, Pertussis, Tetanus Vaccination: Yes - 2014 Review of Systems - Review of Systems Notes: REVIEW OF SYSTEMS: CONSTITUTIONAL: -fevers, -chills EENT: -eye pain, -difficulty swallowing, -nasal congestion CARDIOVASCULAR:-chest pain, -syncope. RESPIRATORY: -cough, -SOB GASTROINTESTINAL: -abdominal pain, - nausea, -vomiting, -diarrhea GENITOURINARY: -dysuria, -hematuria MUSCULOSKELETAL: -back pain, -neck pain SKIN: -rash or skin lesions. HEMATOLOGIC: -easy bruising or bleeding. LYMPHATIC: -swollen, enlarged glands. NEUROLOGICAL: -altered mental status or loss of consciousness, -headache, - neurologic symptoms PSYCHIATRIC: -anxiety, +depression, +SI ALL OTHER SYSTEMS REVIEWED AND NEGATIVE. Physical Exam - Vital signs Vitals: Temp Pulse Resp BP Pulse Ox 98.6 F 62 16 157/97 H 97 02/21/17 14:33 02/21/17 14:33 02/21/17 14:33 02/21/17 14:33 02/21/17 14:33 - Notes Notes: PHYSICAL EXAMINATION: GENERAL: Well-appearing, well-nourished and in no acute distress. HEAD: Atraumatic, normocephalic. EYES: Pupils equal round and reactive to light, extraocular movements intact, sclera anicteric, conjunctiva are normal. ENT: nares patent, oropharynx clear without exudates. Moist mucous membranes. NECK: Normal range of motion, supple without lymphadenopathy LUNGS: Breath sounds clear to auscultation bilaterally and equal. No wheezes rales or rhonchi. HEART: Regular rate and rhythm without murmurs ABDOMEN: Soft, nontender, normoactive bowel sounds. No guarding, no rebound. No masses appreciated. EXTREMITIES: Normal range of motion, no pitting or edema. No cyanosis. NEUROLOGICAL: Cranial nerves grossly intact. Normal speech, normal gait. Normal sensory and motor exams. PSYCH: Normal mood, normal affect. SKIN: Warm, Dry, normal turgor, no rashes or lesions noted. Course - Re-evaluation Re-evalutation: 02/21/17 16:44 Pt is medically cleared for mental health evaluation. Will continue his home blood pressure medications. IVC filled out due to suicidal thoughts. - Vital Signs Vital signs: Temp Pulse Resp BP Pulse Ox 98.6 F 62 16 157/97 H 97 02/21/17 14:33 02/21/17 14:33 02/21/17 14:33 02/21/17 14:33 02/21/17 14:33 - Laboratory Result Diagrams: 02/21/17 15:30 02/21/17 15:30 Laboratory results interpreted by me: 02/21/17 02/21/17 15:30 15:30 RBC 4.11 L Hgb 13.2 L RDW 14.7 H Salicylates < 1.0 L Acetaminophen < 10 L - EKG Interpretation by Me EKG shows normal: Sinus rhythm, [place], Intervals, QRS Complexes, ST-T Waves Rate: Normal When compared to previous EKG there are: Changes noted - QTc now 429 Discharge - Discharge Clinical Impression: Suicidal ideations, Polysubstance abuse Alcohol intoxication Qualifiers: Complication of substance-induced condition: uncomplicated Qualified Code(s): F10.920 - Alcohol use, unspecified with intoxication, uncomplicated Condition: Stable Disposition: PSYCH HOSP/UNIT Referrals: [facility] [Primary Care Provider] - Follow up as needed
[2017-02-21 16:25] LABS: URINE BARBITURATES SCREEN NEGATIVE; URINE METHADONE SCREEN NEGATIVE; URINE OPIATES LOW NEGATIVE; URINE PHENCYCLIDINE SCREEN NEGATIVE
[2017-02-21 16:27] LABS: ALANINE AMINOTRANSFERASE 38 U/L (21-72); ALBUMIN 4.5 g/dL (3.5-5.0); ALKALINE PHOSPHATASE 58 U/L (38-126); ANION GAP 11 (5-19); ASPARTATE AMINO TRANSFERASE 30 U/L (17-59); BILIRUBIN,DIRECT 0.4 mg/dL (0.0-0.4); BILIRUBIN,TOTAL 0.4 mg/dL (0.2-1.3); BLOOD UREA NITROGEN 12 mg/dL (7-20); CARBON DIOXIDE 28 mmol/L (22-30); CHLORIDE 103 mmol/L (98-107); CREATININE RESULT 0.97 mg/dL (0.52-1.25); GLUCOSE 96 mg/dL (75-110); POTASSIUM 4.4 mmol/L (3.6-5.0); TOTAL PROTEIN 7.9 g/dL (6.3-8.2)
[2017-02-21 16:31] LABS: ALCOHOL < 10 mg/dL (NONE DETECTED)
--- NOTE | 2017-02-21 21:22 | EKG REPORT ---
SEVERITY:- NORMAL ECG - SINUS RHYTHM : Confirmed by: Anshul Goyal 21-Feb-2017 21:21:05
[2017-02-22] MEDS ORDERED: HYDROCHLOROTHIAZIDE 12.5 MG CAPSULE PO SCH (08:00)
--- NOTE | 2017-02-22 09:18 | ER Document Report ---
Doctor's Note Notes: 02/22/17 09:17 46-year-old male with past medical history of schizophrenia, bipolar disorder, personality disorder, substance abuse, who presents with drinking, using benzodiazepines, and injecting heroin, in an attempt according to the patient to injure himself. Patient was not taking blood pressure medications. Labs as recorded. Vital signs show an increased blood pressure. Patient has been restarted on his blood pressure medications. Pending psychiatric consultation. 02/22/17 13:41 The psychiatry service team has seen and evaluated the patient. They have arranged admission for the patient/transfer to [facility]. He has a friend coming up to transport him expeditiously. Patient currently denies any suicidal or homicidal ideations. He denies currently any auditory or visual hallucinations. I believe that this is a reasonable plan. His blood pressure has improved to 140/90.
[2017-02-22] MEDS ORDERED: LISINOPRIL 10 MG TABLET PO SCH (10:00)
[2017-02-22 12:38] VITALS: BP 141/90
== END 2017-02-22 14:11 | disposition home or self-care (01) ==
LOC: ER 14:28
DX: R45.851 Suicidal ideations (principal); F20.9 Schizophrenia, unspecified; F31.9 Bipolar disorder, unspecified; F19.10 Other psychoactive substance abuse, uncomplicated; F10.920 Alcohol use, unspecified with intoxication, uncomplicated; F17.200 Nicotine dependence, unspecified, uncomplicated
CPT/HCPCS: 36415; 80053; 80307; 81001; 85025; 93005; 93010; 99284

== ENCOUNTER 2017-08-16 13:30 | Emergency (ER) | payer SELFPAY ==
[2017-08-16 13:39] VITALS: BP 184/100
== END 2017-08-16 15:14 | disposition left against medical advice (07) ==
LOC: ER 13:30
DX: Z53.21 Procedure and treatment not carried out due to patient leaving prior to being seen by health care provider (principal); R03.0 Elevated blood-pressure reading, without diagnosis of hypertension

== ENCOUNTER 2018-01-07 12:21 | Emergency (ER) | payer SELFPAY ==
[2018-01-07] MEDS ORDERED: HYDROCHLOROTHIAZIDE 12.5 MG TABLET PO ONE (13:16)
[2018-01-07] MEDS ORDERED: ASPIRIN 81 MG TABLET, CHEWABLE PO ONE (13:16)
[2018-01-07] MEDS ORDERED: LISINOPRIL 10 MG TABLET PO ONE (13:16)
[2018-01-07] MEDS ORDERED: LIDOCAINE 5% (700 MG) TRANSDERMAL ADH..PATCH TP ONE (13:17)
--- NOTE | 2018-01-07 13:19 | ER Document Report ---
ED Medical Screen (RME) - General Chief Complaint: High Blood Pressure Stated Complaint: BLOOD PRESSURE ISSUE, CHEST PAIN Time Seen by Provider: 01/07/18 13:11 Notes: The patient is a 47-year-old male, past medical history hypertension, chronic low back pain with sciatica down his right leg, presents with 1 day of chest pain and mild shortness of breath. He is also complaining of his chronic right low back pain and sciatica. He has not taken his 20 mg lisinopril or 12.5 mg hydrochlorothiazide for several days. Denies numbness, tingling or blurry vision. PE: NAD. Lungs CTAB. RRR. Normal ambulation. I have greeted and performed a rapid initial assessment of this patient. A comprehensive ED assessment and evaluation of the patient, analysis of test results and completion of the medical decision making process will be conducted by additional ED providers. TRAVEL OUTSIDE OF THE [place] IN LAST 30 DAYS: No - Related Data Allergies/Adverse Reactions: permethrin Allergy (Verified 12/31/16 05:33) Past Medical History - Social History Chew tobacco use (# tins/day): No Frequency of alcohol use: None Family history: None - Past Medical History Cardiac Medical History: Reports: Hx Hypertension Denies: Hx Heart Attack Pulmonary Medical History: Reports: Hx Bronchitis, Hx COPD Neurological Medical History: Reports: Hx Migraine, Hx Seizures Renal/ Medical History: Denies: Hx Peritoneal Dialysis Musculoskeltal Medical History: Denies Hx Arthritis, Reports Hx Musculoskeletal Trauma - right hand Psychiatric Medical History: Reports: Hx Bipolar Disorder, Hx Depression Traumatic Medical History: Reports: Hx Fractures - right hand Infectious Medical History: Reports: Hx C-Diff Past Surgical History: Reports: Hx Orthopedic Surgery - Right hand - Immunizations Immunizations up to date: Yes Hx Diphtheria, Pertussis, Tetanus Vaccination: Yes - 2014 Physical Exam - Vital signs Vitals: Temp Pulse Resp BP Pulse Ox 97.8 F 71 18 196/103 H 100 01/07/18 12:36 01/07/18 12:36 01/07/18 12:36 01/07/18 12:36 01/07/18 12:36 Course - Vital Signs Vital signs: Temp Pulse Resp BP Pulse Ox 97.8 F 71 18 196/103 H 100 01/07/18 12:36 01/07/18 12:36 01/07/18 12:36 01/07/18 12:36 01/07/18 12:36
--- NOTE | 2018-01-07 13:57 | RADIOLOGY REPORT (SQ) ---
EXAM DESCRIPTION: CHEST SINGLE VIEW COMPLETED DATE/TIME: 01/07/2018 1:45 pm REASON FOR STUDY: chest pain COMPARISON: Chest films 08/10/2015, 03/09/2015, 08/12/2012 EXAM PARAMETERS: NUMBER OF VIEWS: One view. TECHNIQUE: Single frontal radiographic view of the chest acquired. RADIATION DOSE: NA LIMITATIONS: None. FINDINGS: LUNGS AND PLEURA: No opacities, masses or pneumothorax. No pleural effusion. MEDIASTINUM AND HILAR STRUCTURES: No masses. Contour normal. HEART AND VASCULAR STRUCTURES: Heart normal in size. Normal vasculature. BONES: No acute findings. HARDWARE: None in the chest. OTHER: No other significant finding. IMPRESSION: NO ACUTE RADIOGRAPHIC FINDING IN THE CHEST. TECHNICAL DOCUMENTATION: JOB ID: [id number] [employer]- All Rights Reserved Reading location - IP/workstation name: [email or web address]
[2018-01-07 14:29] LABS: ALANINE AMINOTRANSFERASE 39 U/L (21-72); ALBUMIN 4.4 g/dL (3.5-5.0); ALKALINE PHOSPHATASE 55 U/L (38-126); ANION GAP 10 (5-19); ASPARTATE AMINO TRANSFERASE 44 U/L (17-59); BILIRUBIN,DIRECT 0.3 mg/dL (0.0-0.4); BILIRUBIN,TOTAL 0.3 mg/dL (0.2-1.3); BLOOD UREA NITROGEN 13 mg/dL (7-20); CALCIUM 9.6 mg/dL (8.4-10.2); CARBON DIOXIDE 29 mmol/L (22-30); CHLORIDE 106 mmol/L (98-107); CREATINE KINASE 161 U/L (55-170); GLUCOSE 85 mg/dL (75-110); POTASSIUM 4.3 mmol/L (3.6-5.0); SODIUM 144.8 mmol/L (137-145)
[2018-01-07 14:35] LABS: ABSOLUTE EOSINOPHILS # (AUTO) 0.3 10^3/uL (0.0-0.6); ABSOLUTE LYMPHOCYTES (AUTO) 2.2 10^3/uL (0.5-4.7); ABSOLUTE MONOCYTES (AUTO) 0.4 10^3/uL (0.1-1.4); ABSOLUTE NEUT (AUTO) 4.2 10^3/uL (1.7-8.2); BASOPHILS % (AUTO) 0.2 % (0-2); EOSINOPHILS % (AUTO) 3.8 % (0-6); HEMATOCRIT 37.1 % (37.9-51.0); HEMOGLOBIN 12.8 g/dL (13.5-17.0); LYMPHOCYTES % (AUTO) 30.5 % (13-45); MEAN CORPUSCULAR HEMOGLOBIN 31.9 pg (27.0-33.4); MEAN CORPUSCULAR HGB CONC 34.5 g/dL (32.0-36.0); MEAN CORPUSCULAR VOLUME 92 fl (80-97); MONOCYTES % (AUTO) 6.1 % (3-13); PLATELET COUNT 248 10^3/uL (150-450); RED BLOOD COUNT 4.02 10^6/uL (4.35-5.55); RED CELL DISTRIBUTION WIDTH 14.9 % (11.5-14.0); SEGMENTED NEUTROPHILS % (AUTO) 59.4 % (42-78); TOTAL CELLS COUNTED % (AUTO) 100 %; WHITE BLOOD COUNT 7.1 10^3/uL (4.0-10.5)
[2018-01-07 14:36] LABS: CREATINE KINASE MB 0.65 ng/mL (<4.55)
[2018-01-07 14:38] LABS: TROPONIN I < 0.012 ng/mL
[2018-01-07] MEDS ORDERED: HYDROMORPHONE HCL INJ/PF 2 MG/ML AMPULE IV ONE (16:05)
--- NOTE | 2018-01-07 17:45 | RADIOLOGY REPORT (SQ) ---
EXAM DESCRIPTION: SACROILIAC JOINTS 3 OR MORE COMPLETED DATE/TIME: 01/07/2018 5:23 pm REASON FOR STUDY: back pain, right si joint pain COMPARISON: None. NUMBER OF VIEWS: Three views. TECHNIQUE: AP and oblique views of the sacroiliac joints. LIMITATIONS: None. FINDINGS: MINERALIZATION: Normal. BONES: No acute fracture or dislocation. No worrisome bone lesions. No significant osteophytes. JOINTS: The sacroiliac joints are patent. No unusual widening, sclerosis, or fusion. SOFT TISSUES: No soft tissue swelling. No radio-opaque foreign body. OTHER: No other significant finding. IMPRESSION: NORMAL STUDY OF THE SACROILIAC JOINTS. TECHNICAL DOCUMENTATION: JOB ID: [id number] [employer]- All Rights Reserved Reading location - IP/workstation name: [email or web address]
--- NOTE | 2018-01-07 17:47 | RADIOLOGY REPORT (SQ) ---
EXAM DESCRIPTION: L SPINE WHOLE COMPLETED DATE/TIME: 01/07/2018 5:23 pm REASON FOR STUDY: back pain, right si joint pain COMPARISON: None. NUMBER OF VIEWS: Five views including obliques. TECHNIQUE: AP, lateral, oblique, and sacral radiographic images acquired of the lumbar spine. LIMITATIONS: None. FINDINGS: MINERALIZATION: Normal. SEGMENTATION: Normal. No transitional anatomy. ALIGNMENT: Grade 1 anterolisthesis of L5 on S1. VERTEBRAE: No acute fracture. Bilateral pars defects are present at L5. DISCS: Mild disc narrowing at L5-S1. POSTERIOR ELEMENTS: Hypertrophic facet changes from L4-S1. HARDWARE: None in the spine. PARASPINAL SOFT TISSUES: Normal. PELVIS: Intact as visualized. No fractures or worrisome bone lesions. SI joints intact. OTHER: No other significant finding. IMPRESSION: Anterolisthesis of L5 on S1 with bilateral pars defects. Facet arthropathy. TECHNICAL DOCUMENTATION: JOB ID: [id number] [employer]- All Rights Reserved Reading location - IP/workstation name: [email or web address]
[2018-01-07] MEDS ORDERED: FENTANYL CITRATE INJ/PF 100 MCG/2 ML AMPUL IV ONE (17:48)
[2018-01-07 18:53] VITALS: BP 180/102
[2018-01-07] MEDS ORDERED: HYDROCODONE/ACETAMINOPHEN 5-325 MG (6 TAB/ER DISP) PO PRN (18:57)
--- NOTE | 2018-01-07 18:57 | ER Document Report ---
ED Blood Pressure Problem - General Chief Complaint: High Blood Pressure Stated Complaint: BLOOD PRESSURE ISSUE, CHEST PAIN Time Seen by Provider: 01/07/18 13:11 Mode of Arrival: Ambulatory Information source: Patient Notes: Patient is a 47-year-old male who presents to the ER today for low back pain that is chronic radiating down the right leg from the right hip. He denies any injury. He also is out of his blood pressure medication. Patient just moved here from out of [facility] and is not set up with his primary care provider yet. Patient takes lisinopril and hydrochlorothiazide but has not had it in over 2-3 months. Patient denies headache but admits to some mild chest pain. Patient states that he has been told that he needed a thoracic and lumbar fusion but that he "cannot afford that." Patient took Percocet for pain prior to moving here from [place]. He denies any numbness or tingling, loss of bladder or bowel function. He denies any blurred vision or weakness anywhere. TRAVEL OUTSIDE OF THE [place] IN LAST 30 DAYS: No - Related Data Allergies/Adverse Reactions: permethrin Allergy (Verified 12/31/16 05:33) Past Medical History - General Information source: Patient - Social History Smoking Status: Current Every Day Smoker Chew tobacco use (# tins/day): No Frequency of alcohol use: None Family History: CAD, CVA, DM, Hyperlipidemia, Hypertension, Malignancy Patient has suicidal ideation: No Patient has homicidal ideation: No - Past Medical History Cardiac Medical History: Reports: Hx Hypertension Denies: Hx Heart Attack Pulmonary Medical History: Reports: Hx Bronchitis, Hx COPD Neurological Medical History: Reports: Hx Migraine, Hx Seizures Renal/ Medical History: Denies: Hx Peritoneal Dialysis Musculoskeltal Medical History: Denies Hx Arthritis, Reports Hx Musculoskeletal Trauma - right hand Psychiatric Medical History: Reports: Hx Bipolar Disorder, Hx Depression Traumatic Medical History: Reports: Hx Fractures - right hand Infectious Medical History: Reports: Hx C-Diff Past Surgical History: Reports: Hx Orthopedic Surgery - Right hand - Immunizations Immunizations up to date: Yes Hx Diphtheria, Pertussis, Tetanus Vaccination: Yes - 2014 Review of Systems - Review of Systems Constitutional: No symptoms reported EENT: No symptoms reported Cardiovascular: See HPI Respiratory: No symptoms reported Gastrointestinal: No symptoms reported Genitourinary: No symptoms reported Male Genitourinary: No symptoms reported Musculoskeletal: See HPI Skin: No symptoms reported Hematologic/Lymphatic: No symptoms reported Neurological/Psychological: No symptoms reported Physical Exam - Vital signs Vitals: Temp Pulse Resp BP Pulse Ox 97.8 F 71 18 196/103 H 100 01/07/18 12:36 01/07/18 12:36 01/07/18 12:36 01/07/18 12:36 01/07/18 12:36 - Notes Notes: PHYSICAL EXAMINATION: GENERAL: Obviously uncomfortable, but in no acute distress. HEAD: Atraumatic, normocephalic. EYES: Pupils equal round and reactive to light, extraocular movements intact, sclera anicteric, conjunctiva are normal. NECK: Normal range of motion, supple without lymphadenopathy LUNGS: CTAB and equal. No wheezes rales or rhonchi. HEART: Hypertensive, but regular rate and rhythm without murmurs ABDOMEN: Soft, no tenderness. No guarding, no rebound BACK: Lumbar vertebral and right SI joint tenderness, normal ROM GI/: no CVA tenderness EXTREMITIES: Normal range of motion, no pitting edema. No cyanosis. NEUROLOGICAL: Cranial nerves grossly intact. Normal sensory/motor exams. PSYCH: Normal mood, normal affect. SKIN: Warm, Dry, normal turgor, no rashes or lesions noted Course - Re-evaluation Re-evalutation: 01/07/18 18:54 Lumbar x-ray and SI joint x-ray negative for any acute pathology. Patient's blood pressure has reduced with 2 different blood pressure medications given in triage. Patient was given multiple doses of pain medication here which I believe also help to reduce his blood pressure as I believe most of it is due to pain. Patient has no neurological deficits. I will send him home with his blood pressure medication refills and pain medication from the ER for just a few doses, he is to follow up with his pcp here. 2 sets of troponins are negative, EKG reveals normal sinus rhythm with no evidence of ischemia, chest x- ray normal today. Lab work is unremarkable. 01/07/18 18:55 01/07/18 18:55 - Vital Signs Vital signs: Temp Pulse Resp BP Pulse Ox 97.8 F 71 11 L 180/102 H 99 01/07/18 12:36 01/07/18 12:36 01/07/18 18:46 01/07/18 18:46 01/07/18 18:46 - Laboratory Result Diagrams: 01/07/18 13:27 01/07/18 13:27 Laboratory results interpreted by me: 01/07/18 13:27 RBC 4.02 L Hgb 12.8 L Hct 37.1 L RDW 14.9 H Discharge - Discharge Clinical Impression: Uncontrolled hypertension Chronic back pain Qualifiers: Back pain location: low back pain Back pain laterality: midline Sciatica presence: with sciatica Sciatica laterality: sciatica of right side Qualified Code(s): M54.41 - Lumbago with sciatica, right side Condition: Stable Disposition: HOME, SELF-CARE Instructions: High Blood Pressure, Requiring Treatment ([facility]) Additional Instructions: Return immediately for any new or worsening symptoms. Follow up with primary care provider, call tomorrow to make followup appointment. Prescriptions: Cyclobenzaprine HCl [Flexeril 10 mg Tablet] 10 mg PO TID PRN #30 tablet PRN Reason: Hydrochlorothiazide 12.5 mg PO BID #60 tablet Lisinopril 20 mg PO DAILY #30 tablet Referrals: CLAY SUAZO MD [ACTIVE STAFF] - Follow up as needed
--- NOTE | 2018-01-07 20:41 | EKG REPORT ---
SEVERITY:- NORMAL ECG - SINUS RHYTHM : Confirmed by: Jennifer Salinas MD 07-Jan-2018 20:41:01
== END 2018-01-07 19:52 | disposition home or self-care (01) ==
LOC: ER 12:21
DX: I10 Essential (primary) hypertension (principal); T46.4X6A Underdosing of angiotensin-converting-enzyme inhibitors, initial encounter; T50.2X6A Underdosing of carbonic-anhydrase inhibitors, benzothiadiazides and other diuretics, initial encounter; Z91.128 Patient's intentional underdosing of medication regimen for other reason; Z91.14 Patient's other noncompliance with medication regimen; R07.9 Chest pain, unspecified; M54.41 Lumbago with sciatica, right side; G89.29 Other chronic pain; F17.200 Nicotine dependence, unspecified, uncomplicated; J44.9 Chronic obstructive pulmonary disease, unspecified; Z88.8 Allergy status to other drugs, medicaments and biological substances; Z82.49 Family history of ischemic heart disease and other diseases of the circulatory system
CPT/HCPCS: 93005; 99284; 96374; 96375; 36415; 82553; 82550; 85025; 80053; 84484; 71045; 72110; 72202; 93010; J3010; J1170

== ENCOUNTER 2018-02-06 11:04 | Emergency (ER) | payer SELFPAY ==
--- NOTE | 2018-02-06 11:40 | ER Document Report ---
ED Psych Disorder / Suicide <DIDI LORENZO - Last Filed: 02/06/18 16:48> - General TRAVEL OUTSIDE OF THE [place] IN LAST 30 DAYS: No - HPI Patient complains to provider of: Overdose, Suicidal ideation, Suicidal plan, Suicidal attempt, Self injury Onset: Yesterday Onset was: Sudden Suicide Risk Factors: Chronic illness, Depressed, Organized plan, Other mental health dx. Situational problems related to: Parent, Recent divorce Suicide Attempt Method: Overdose Overdose of: Benzodiazepine <JEANINE HILL - Last Filed: 02/06/18 17:18> - General Chief Complaint: Suicidal Ideation Stated Complaint: SUICIDAL IDEATIONS Time Seen by Provider: 02/06/18 11:40 Notes: This is a 47-year-old male history of depression. Here after intentional overdose of Xanax last night. States that he has several problems with work and family. Has not seen his daughter in over 2 months. States that he does not have any more coping skills. He has chronic pain. Unable to do his normal job. Decided last night to overdose on Xanax. When he woke up this morning alive he called mobile crisis. Patient has been admitted to mental facility in [place] in the past. Currently working with a person called [facility]. Patient states that he is afraid if he does not get help he is going to figure out a way to . Patient states that he has hypertension. Chronic back pain. When he lost his job he lost his insurance and has not been able to see a primary care doctor. (JEANINE HILL) - Related Data Allergies/Adverse Reactions: permethrin Allergy (Verified 02/06/18 11:08) Past Medical History - General Information source: Patient - Social History Smoking Status: Current Some Day Smoker Frequency of alcohol use: None Drug Abuse: None Lives with: Parents Family History: CAD, CVA, DM, Hyperlipidemia, Hypertension, Malignancy - Past Medical History Cardiac Medical History: Reports: Hx Hypertension Denies: Hx Heart Attack Pulmonary Medical History: Reports: Hx Bronchitis, Hx COPD Neurological Medical History: Reports: Hx Migraine, Hx Seizures Renal/ Medical History: Denies: Hx Peritoneal Dialysis Musculoskeletal Medical History: Denies Hx Arthritis, Reports Hx Musculoskeletal Trauma - right hand Psychiatric Medical History: Reports: Hx Bipolar Disorder, Hx Depression Traumatic Medical History: Reports: Hx Fractures - right hand Infectious Medical History: Reports: Hx C-Diff Past Surgical History: Reports: Hx Orthopedic Surgery - Right hand - Immunizations Immunizations up to date: Yes Hx Diphtheria, Pertussis, Tetanus Vaccination: Yes - 2014 <JEANINE HILL - Last Filed: 02/06/18 17:18> Review of Systems <DIDI LORENZO - Last Filed: 02/06/18 16:48> <JEANINE HILL - Last Filed: 02/06/18 17:18> - Review of Systems Notes: Constitutional: denies: Chills, Diaphoresis, Fever, Malaise, Weakness EENT: denies: Eye discharge, Blurred vision, Tearing, Double vision, Nose congestion, Nose discharge, Throat swelling, Mouth pain Cardiovascular: denies: Palpitations, Heart racing, Orthopnea, Dyspnea, Chest pain Respiratory: denies: Cough, Hurts to breathe, Wheezing, Shortness of breath Gastrointestinal: denies: Abdominal pain, Diarrhea, Nausea, Vomiting, Black stools, bright red blood in stool Genitourinary: denies: Burning, Dysuria, Discharge, Frequency, Flank pain, Hematuria Musculoskeletal: denies: Joint pain, Joint swelling, Muscle pain,. Positive for chronic back pain Hematologic/Lymphatic: denies: Anemia, Easy bleeding, Easy bruising, Blood clots Neurological/Psychological: Consistent for severe depression, suicidal ideation , suicidal attempt. Denies any severe headaches. Denies any weakness of the upper lower extremities. No slurred speech. Skin: No lesions, no masses, no skin breakdown, no abscesses (JEANINE HILL) Physical Exam - Vital signs Interpretation: Hypertensive - General General appearance: Appears well, Alert - HEENT Head: Normocephalic, Atraumatic Eyes: Normal Pupils: PERRL - Respiratory Respiratory status: No respiratory distress Chest status: Nontender Breath sounds: Normal Chest palpation: Normal - Cardiovascular Rhythm: Regular Heart sounds: Normal auscultation Murmur: No - Abdominal Inspection: Normal Distension: No distension Bowel sounds: Normal Tenderness: Nontender Organomegaly: No organomegaly - Back Back: Normal, Nontender - Extremities General upper extremity: Normal inspection, Nontender, Normal color, Normal ROM , Normal temperature General lower extremity: Normal inspection, Nontender, Normal color, Normal ROM , Normal temperature, Normal weight bearing. No: Daniel's sign - Neurological Neuro grossly intact: Yes Cognition: Normal Orientation: AAOx4 Rodrigo Coma Scale Eye Opening: Spontaneous [place] Coma Scale Verbal: Oriented Rodrigo Coma Scale Motor: Obeys Commands Rodrigo Coma Scale Total: 15 Speech: Normal Motor strength normal: LUE, RUE, LLE, RLE Sensory: Normal - Psychological Associated symptoms: Depressed, Flat affect, Tearful - Skin Skin Temperature: Warm Skin Moisture: Dry Skin Color: Normal <JEANINE HILL - Last Filed: 02/06/18 17:18> - Vital signs Vitals: Temp Pulse Resp BP Pulse Ox 98.3 F 64 16 197/109 H 98 02/06/18 11:10 02/06/18 11:10 02/06/18 11:10 02/06/18 11:10 02/06/18 11:10 Course - Laboratory Result Diagrams: 02/06/18 12:50 02/06/18 12:50 <DIDI LORENZO - Last Filed: 02/06/18 16:48> - Laboratory Result Diagrams: 02/06/18 12:50 02/06/18 12:50 <JEANINE HILL - Last Filed: 02/06/18 17:18> - Re-evaluation Re-evalutation: 02/06/18 11:58 Patient with suicidal ideation with attempted SI last night. Will place on IVC at this time. Patient is extremely hypertensive. We will give him some clonidine and hydralazine in order to bring his blood pressure down. Patient will need to be seen by mental health and likely have inpatient treatment of unable to get him lined out here. 02/06/18 14:11 Laboratory 02/06/18 02/06/18 02/06/18 12:50 12:50 13:05 WBC 6.2 RBC 4.43 Hgb 14.7 Hct 42.9 MCV 97 D MCH 33.1 MCHC 34.1 RDW 14.7 H Plt Count 156 Seg Neutrophils % 49.2 Lymphocytes % 36.2 Monocytes % 8.3 Eosinophils % 5.3 Basophils % 1.0 Absolute Neutrophils 3.1 Absolute Lymphocytes 2.2 Absolute Monocytes 0.5 Absolute Eosinophils 0.3 Absolute Basophils 0.1 Sodium 144.4 Potassium 4.2 Chloride 105 Carbon Dioxide 23 Anion Gap 16 BUN 14 Creatinine 0.90 Est GFR ( Amer) > 60 Est GFR (Non-Af Amer) > 60 Glucose 82 Calcium 9.7 Total Bilirubin 0.5 Direct Bilirubin 0.3 Neonat Total Bilirubin Not Reportable Neonat Direct Bilirubin Not Reportable Neonat Indirect Bili Not Reportable AST 23 ALT 23 Alkaline Phosphatase 48 Total Protein 8.1 Albumin 4.4 Urine Color YELLOW Urine Appearance CLEAR Urine pH 5.0 Ur Specific Chestnut 1.006 Urine Protein NEGATIVE Urine Glucose (UA) NEGATIVE Urine Ketones NEGATIVE Urine Blood NEGATIVE Urine Nitrite NEGATIVE Urine Bilirubin NEGATIVE Urine Urobilinogen NEGATIVE Ur Leukocyte Esterase NEGATIVE Urine WBC (Auto) 0 Urine Mucus (Auto) RARE Urine Ascorbic Acid NEGATIVE Salicylates < 1.0 L Acetaminophen < 10 L Serum Alcohol < 10 02/06/18 14:15 Drug screen positive for cocaine but not benzos. I have spoken with mental health and they will visit with patient. They state that they know him quite well and that he is a substance abuser. 02/06/18 16:11 Patient is well-known to the mental health providers here. Patient is a substance abuser. Has been given multiple opportunities for outpatient treatment. Patient currently states he no longer wants to hurt himself. We have provided him with resources. Dr. Lorenzo has seen the patient and spent a considerable amount of time with him. Currently we are going to discharge him and he will get outpatient treatment. No further concern at this time about his suicidal ideation. (JEANINE HILL) - Vital Signs Vital signs: Temp Pulse Resp BP Pulse Ox 98.3 F 64 16 199/114 H 98 02/06/18 11:10 02/06/18 11:10 02/06/18 11:10 02/06/18 11:12 02/06/18 11:10 - Laboratory Laboratory results interpreted by me: 02/06/18 02/06/18 12:50 12:50 RDW 14.7 H Salicylates < 1.0 L Acetaminophen < 10 L Discharge <DIDI LORENZO - Last Filed: 02/06/18 16:48> <JEANINE HILL - Last Filed: 02/06/18 17:18> - Discharge Clinical Impression: Suicidal ideation Major depressive disorder Qualifiers: Major depression recurrence: recurrent Active/Remission status: currently active Major depression episode severity: severe Psychotic features: without psychotic features Qualified Code(s): F33.2 - Major depressive disorder, recurrent severe without psychotic features Condition: Good Disposition: HOME, SELF-CARE Additional Instructions: You were seen in the Emergency Department and evaluated by the Medical and Behavioral Teams for suicidal ideation and substance abuse, and determined appropriate for discharge. You were provided resources for community based mental health and substance abuse services and are encouraged to follow up with these referrals. Additionally, you are encouraged to discontinue use of cocaine and other illegal substances. It is imperative that you are honest with all providers about your use of illegal substances and funds available to purchase medications. [facility] was contacted and it is recommended you continue working with them for mobile crisis response. COCAINE ABUSE: Cocaine causes many dangerous medical problems. Problems can occur even with "usual" amounts. Cocaine affects judgment, creating a sense of invulnerability. Cocaine users often make bad decisions that seem "great" at the time. Most cocaine users eventually will be hurt by bad job performance, damaged personal relations, crime, and unsafe sexual practices. Toxic effects of cocaine can include seizures, hallucinations, delusions, high blood pressure, heart damage, or sudden . There's always the risk of a "bad batch." But heart attacks, brain hemorrhages, or cardiac arrest can occur unpredictably even with "normal" use. Injection of cocaine is risky for abscesses, endocarditis (heart infection) , pneumonia, and AIDS. Withdrawal from cocaine often causes anxiety and drug cravings. Many treatment programs are available, but you must make the decision to quit. SUICIDAL IDEATION: While thoughts about suicide are common, most people do not carry out serious actions to commit suicide. Based upon your evaluation and discussion with you, we do not believe you are currently at risk to act upon your thoughts of suicide. You have agreed to return to the Emergency Department, at any time , if you feel inclined to act upon your suicidal thoughts. FOLLOW-UP CARE: If you have been referred to a physician for follow-up care, call the physician s office for an appointment as you were instructed or within the next two days. If you experience worsening or a significant change in your symptoms, notify the physician immediately or return to the Emergency Department at any time for re-evaluation. Referrals: [facility] Crisis Team [Provider Group] - Follow up as needed
[2018-02-06] MEDS ORDERED: HYDRALAZINE HCL 25 MG TABLET PO ONE (11:51)
[2018-02-06] MEDS ORDERED: CLONIDINE HCL 0.1 MG TABLET PO ONE (11:51)
[2018-02-06] MEDS ORDERED: IBUPROFEN 800 MG TABLET PO ONE (12:00)
--- NOTE | 2018-02-06 13:29 | RADIOLOGY REPORT (SQ) ---
EXAM DESCRIPTION: CHEST 2 VIEWS COMPLETED DATE/TIME: 02/06/2018 1:16 pm REASON FOR STUDY: chest and back pain COMPARISON: AP chest 01/07/2018 EXAM PARAMETERS: NUMBER OF VIEWS: two views TECHNIQUE: Digital Frontal and Lateral radiographic views of the chest acquired. RADIATION DOSE: NA LIMITATIONS: none FINDINGS: LUNGS AND PLEURA: No opacities, masses or pneumothorax. No pleural effusion. MEDIASTINUM AND HILAR STRUCTURES: No masses or contour abnormalities. HEART AND VASCULAR STRUCTURES: Heart normal size. No evidence for failure. BONES: No acute findings. HARDWARE: None in the chest. OTHER: No other significant finding. IMPRESSION: NO ACUTE RADIOGRAPHIC FINDING IN THE CHEST. TECHNICAL DOCUMENTATION: JOB ID: [id number] [employer]- All Rights Reserved Reading location - IP/workstation name: [email or web address]
[2018-02-06 13:43] LABS: ABSOLUTE BASOPHILS # (AUTO) 0.1 10^3/uL (0.0-0.2); ABSOLUTE EOSINOPHILS # (AUTO) 0.3 10^3/uL (0.0-0.6); ABSOLUTE LYMPHOCYTES (AUTO) 2.2 10^3/uL (0.5-4.7); ABSOLUTE MONOCYTES (AUTO) 0.5 10^3/uL (0.1-1.4); ABSOLUTE NEUT (AUTO) 3.1 10^3/uL (1.7-8.2); EOSINOPHILS % (AUTO) 5.3 % (0-6); HEMATOCRIT 42.9 % (37.9-51.0); HEMOGLOBIN 14.7 g/dL (13.5-17.0); LYMPHOCYTES % (AUTO) 36.2 % (13-45); MEAN CORPUSCULAR HEMOGLOBIN 33.1 pg (27.0-33.4); MEAN CORPUSCULAR HGB CONC 34.1 g/dL (32.0-36.0); MONOCYTES % (AUTO) 8.3 % (3-13); PLATELET COUNT 156 10^3/uL (150-450); RED BLOOD COUNT 4.43 10^6/uL (4.35-5.55); RED CELL DISTRIBUTION WIDTH 14.7 % (11.5-14.0); SEGMENTED NEUTROPHILS % (AUTO) 49.2 % (42-78); TOTAL CELLS COUNTED % (AUTO) 100 %; WHITE BLOOD COUNT 6.2 10^3/uL (4.0-10.5)
[2018-02-06 13:50] LABS: APPEARANCE,URINE CLEAR; BILIRUBIN,URINE NEGATIVE (NEGATIVE); COLOR,URINE YELLOW; GLUCOSE, URINE NEGATIVE (NEGATIVE); KETONES,URINE NEGATIVE (NEGATIVE); LEUKOCYTE ESTERASE,URINE NEGATIVE (NEGATIVE); NITRITE,URINE NEGATIVE (NEGATIVE); PROTEIN,URINE NEGATIVE (NEGATIVE); URINE SPECIFIC GRAVITY 1.006; UROBILINOGEN,URINE NEGATIVE mg/dL (<2.0)
[2018-02-06 13:53] LABS: MEAN CORPUSCULAR VOLUME 97 fl (80-97)
[2018-02-06 13:59] LABS: ALANINE AMINOTRANSFERASE 23 U/L (21-72); ALBUMIN 4.4 g/dL (3.5-5.0); ALKALINE PHOSPHATASE 48 U/L (38-126); ANION GAP 16 (5-19); ASPARTATE AMINO TRANSFERASE 23 U/L (17-59); BILIRUBIN,DIRECT 0.3 mg/dL (0.0-0.4); BILIRUBIN,TOTAL 0.5 mg/dL (0.2-1.3); BLOOD UREA NITROGEN 14 mg/dL (7-20); CALCIUM 9.7 mg/dL (8.4-10.2); CARBON DIOXIDE 23 mmol/L (22-30); CHLORIDE 105 mmol/L (98-107); GLUCOSE 82 mg/dL (75-110); POTASSIUM 4.2 mmol/L (3.6-5.0); SODIUM 144.4 mmol/L (137-145); TOTAL PROTEIN 8.1 g/dL (6.3-8.2)
[2018-02-06 14:00] LABS: ACETAMINOPHEN < 10 ug/mL (10-30); ALCOHOL < 10 mg/dL (NONE DETECTED); SALICYLATE < 1.0 mg/dL (2.0-20.0)
[2018-02-06 14:13] LABS: URINE AMPHETAMINES SCREEN NEGATIVE; URINE BARBITURATES SCREEN NEGATIVE; URINE BENZODIAZEPINES SCREEN NEGATIVE; URINE COCAINE SCREEN UNCONFIRMED POSITIVE; URINE MARIJUANA (THC) SCREEN NEGATIVE; URINE METHADONE SCREEN NEGATIVE; URINE PHENCYCLIDINE SCREEN NEGATIVE
[2018-02-06 17:28] VITALS: BP 211/110
--- NOTE | 2018-02-06 23:32 | EKG REPORT ---
SEVERITY:- OTHERWISE NORMAL ECG - SINUS BRADYCARDIA : Confirmed by: Jennifer Salinas MD 06-Feb-2018 23:31:30
== END 2018-02-06 17:44 | disposition home or self-care (01) ==
LOC: ER 11:04
DX: R45.851 Suicidal ideations (principal); F33.2 Major depressive disorder, recurrent severe without psychotic features; T42.4X2A Poisoning by benzodiazepines, intentional self-harm, initial encounter; G89.29 Other chronic pain; I10 Essential (primary) hypertension; X58.XXXA Exposure to other specified factors, initial encounter; F17.200 Nicotine dependence, unspecified, uncomplicated; J44.9 Chronic obstructive pulmonary disease, unspecified
CPT/HCPCS: 36415; 71046; 80053; 80307; 81001; 85025; 93005; 93010; 99285

== ENCOUNTER 2018-07-08 18:11 | Emergency (ER) | payer SELFPAY ==
[2018-07-08] MEDS ORDERED: HYDROCODONE/ACETAMINOPHEN 7.5-325 MG TABLET PO ONE (18:48)
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
--- NOTE | 2018-07-08 19:24 | RADIOLOGY REPORT (SQ) ---
EXAM DESCRIPTION: FOOT LEFT COMPLETE COMPLETED DATE/TIME: 07/08/2018 7:14 pm REASON FOR STUDY: pain COMPARISON: None. NUMBER OF VIEWS: Three views. TECHNIQUE: AP, lateral and oblique radiographic images acquired of the left foot. LIMITATIONS: None. FINDINGS: MINERALIZATION: Normal. BONES: No acute fracture or dislocation. No worrisome bone lesions. JOINTS: No effusions. SOFT TISSUES: No soft tissue swelling. No foreign body. OTHER: No other significant finding. IMPRESSION: NEGATIVE STUDY OF THE LEFT FOOT. NO RADIOGRAPHIC EVIDENCE OF ACUTE INJURY. TECHNICAL DOCUMENTATION: JOB ID: [id number] [employer]- All Rights Reserved Reading location - IP/workstation name: [email or web address]
[2018-07-08] MEDS ORDERED: HYDROCODONE/ACETAMINOPHEN 5-325 MG (6 TAB/ER DISP) PO PRN (19:41)
[2018-07-08 19:54] VITALS: BP 179/99
== END 2018-07-08 19:54 | disposition home or self-care (01) ==
LOC: ER 18:11
DX: T23.031A Burn of unspecified degree of multiple right fingers (nail), not including thumb, initial encounter (principal); X08.8XXA Exposure to other specified smoke, fire and flames, initial encounter; Y93.89 Activity, other specified; S99.922A Unspecified injury of left foot, initial encounter; W22.8XXA Striking against or struck by other objects, initial encounter
CPT/HCPCS: 99283

== ENCOUNTER 2018-07-28 14:47 | Emergency (ER) | payer SELFPAY ==
[2018-07-28 14:59] VITALS: BP 117/62
--- NOTE | 2018-07-28 18:05 | ER Document Report ---
HPI - HPI Patient complains to provider of: left toe redness Time Seen by Provider: 07/28/18 17:52 Pain Level: 4 Context: Patient is a 47-year-old male presents to the emergency department complaining of redness and general swelling to his left middle toe. Patient states he was to this facility about a month ago after stepping that left toe for which he thought he broke it. States x-rays at that time were negative for fracture. Patient states in the last couple of days he has noticed a blister type sore to the medial aspect of the distal left middle toe. States his toe now has a surrounding erythema and an increase in pain which is why he presents to the emergency room. Patient has been applying Neosporin to the blister and erythema. Patient's last tetanus immunization was 2015. Past medical history: Hypertension, depression, migraines Medications: Currently none Allergies: Toradol, morphine, permethrin - REPRODUCTIVE Reproductive: DENIES: : - DERM Skin Color: Normal Past Medical History - General Information source: Patient - Social History Smoking Status: Current Every Day Smoker Chew tobacco use (# tins/day): No Frequency of alcohol use: None Drug Abuse: None Family History: CAD, CVA, DM, Hyperlipidemia, Hypertension, Malignancy Patient has suicidal ideation: No Patient has homicidal ideation: No - Past Medical History Cardiac Medical History: Reports: Hx Hypertension Denies: Hx Heart Attack Pulmonary Medical History: Reports: Hx Bronchitis, Hx COPD Neurological Medical History: Reports: Hx Migraine, Hx Seizures Renal/ Medical History: Denies: Hx Peritoneal Dialysis Musculoskeletal Medical History: Denies Hx Arthritis, Reports Hx Musculoskeletal Trauma - right hand Psychiatric Medical History: Reports: Hx Bipolar Disorder, Hx Depression Traumatic Medical History: Reports: Hx Fractures - right hand Infectious Medical History: Reports: Hx C-Diff Past Surgical History: Reports: Hx Orthopedic Surgery - Right hand - Immunizations Immunizations up to date: Yes Hx Diphtheria, Pertussis, Tetanus Vaccination: Yes - 2014 Vertical Provider Document - CONSTITUTIONAL Agree With Documented VS: Yes Notes: GENERAL: Alert, interacts well. No acute distress. HEAD: Normocephalic, atraumatic. EYES: Pupils equal, round, and reactive to light. Extraocular movements intact. ENT: Oral mucosa moist, tongue midline. NECK: Full range of motion. Supple. Trachea midline. LUNGS: Clear to auscultation bilaterally, no wheezes, rales, or rhonchi. No respiratory distress. HEART: Regular rate and rhythm. No murmur ABDOMEN: Soft, non-tender. Non-distended. Bowel sounds present in all 4 quadrants. EXTREMITIES: Moves all 4 extremities spontaneously. No edema, normal radial and dorsalis pedis pulses bilaterally. No cyanosis. BACK: no cervical, thoracic, lumbar midline tenderness. No saddle anesthesia, normal distal neurovascular exam. NEUROLOGICAL: Alert and oriented x3. Normal speech. cranial nerves II through XII grossly intact PSYCH: Normal affect, normal mood. SKIN: Warm, dry. A popped blister noted to the distal medial left middle toe. Significant erythema noted to the entire toe with swelling noted. Capillary refill distally less than 2 seconds. - INFECTION CONTROL TRAVEL OUTSIDE OF THE [place] IN LAST 30 DAYS: No Course - Re-evaluation Re-evalutation: 07/28/18 18:04 Patient has no history of diabetes or extensive wound sores that have not been able to heal. Discussed use of oral antibiotics for possible infection. Patient voices understanding. Patient is afebrile, non-tachycardic, stable for discharge. - Vital Signs Vital signs: Temp Pulse Resp BP Pulse Ox 98.1 F 68 16 117/62 97 07/28/18 14:58 07/28/18 14:58 07/28/18 14:58 07/28/18 14:58 07/28/18 14:58 Discharge - Discharge Clinical Impression: Cellulitis Qualifiers: Site of cellulitis: extremity Site of cellulitis of extremity: toe Laterality: left Qualified Code(s): L03.032 - Cellulitis of left toe Condition: Stable Disposition: HOME, SELF-CARE Instructions: Cellulitis ([facility]) Additional Instructions: As we discussed you have been seen and treated in the emergency department for an infection to your left middle toe. Please make sure you try to dry out the blistered area. Please also make sure you take antibiotics as prescribed. Please return to the emergency room should you have any other concerning symptoms. Prescriptions: Cephalexin Monohydrate [Keflex 500 mg Capsule] 500 mg PO BID 7 Days #14 capsule Forms: Return to Work
== END 2018-07-28 18:18 | disposition home or self-care (01) ==
LOC: ER 14:47
DX: L03.032 Cellulitis of left toe (principal); F17.200 Nicotine dependence, unspecified, uncomplicated; I10 Essential (primary) hypertension; J44.9 Chronic obstructive pulmonary disease, unspecified; Z88.6 Allergy status to analgesic agent
CPT/HCPCS: 99283

== ENCOUNTER 2018-08-12 12:35 | Emergency (ER) | payer SELFPAY ==
[2018-08-12] MEDS ORDERED: OXYCODONE-ACETAMINOPHEN 5-325 MG TABLET PO ONE ×2 (13:15→16:12)
--- NOTE | 2018-08-12 13:20 | ER Document Report ---
ED Medical Screen (RME) - General Chief Complaint: Foot Pain Stated Complaint: FOOT PAIN Time Seen by Provider: 08/12/18 13:11 Notes: 48 years old male presents today with left middle toe cyanosis as well as trophic ulcer with a history of heavy smoking. And also having severe pain over the lower left extremity particularly over the foot. TRAVEL OUTSIDE OF THE [place] IN LAST 30 DAYS: No - Related Data Allergies/Adverse Reactions: ketorolac [From Toradol] Allergy (Verified 08/12/18 12:43) morphine Allergy (Verified 08/12/18 12:43) permethrin Allergy (Verified 08/12/18 12:43) Past Medical History - Social History Family history: None - Past Medical History Cardiac Medical History: Reports: Hx Hypertension Denies: Hx Heart Attack Pulmonary Medical History: Reports: Hx Bronchitis, Hx COPD Neurological Medical History: Reports: Hx Migraine, Hx Seizures Renal/ Medical History: Denies: Hx Peritoneal Dialysis Musculoskeltal Medical History: Denies Hx Arthritis, Reports Hx Musculoskeletal Trauma - right hand Psychiatric Medical History: Reports: Hx Bipolar Disorder, Hx Depression Traumatic Medical History: Reports: Hx Fractures - right hand Infectious Medical History: Reports: Hx C-Diff Past Surgical History: Reports: Hx Orthopedic Surgery - Right hand - Immunizations Immunizations up to date: Yes Hx Diphtheria, Pertussis, Tetanus Vaccination: Yes - 2014 Physical Exam - Vital signs Vitals: Temp Pulse Resp BP Pulse Ox 98.6 F 60 16 166/97 H 98 08/12/18 12:51 08/12/18 12:51 08/12/18 12:51 08/12/18 12:51 08/12/18 12:51 Course - Vital Signs Vital signs: Temp Pulse Resp BP Pulse Ox 98.6 F 60 16 166/97 H 98 08/12/18 12:51 08/12/18 12:51 08/12/18 12:51 08/12/18 12:51 08/12/18 12:51
[2018-08-12 14:01] LABS: ABSOLUTE EOSINOPHILS # (AUTO) 0.3 10^3/uL (0.0-0.6); ABSOLUTE MONOCYTES (AUTO) 0.4 10^3/uL (0.1-1.4); ABSOLUTE NEUT (AUTO) 2.3 10^3/uL (1.7-8.2); BASOPHILS % (AUTO) 0.6 % (0-2); EOSINOPHILS % (AUTO) 5.5 % (0-6); HEMATOCRIT 37.1 % (37.9-51.0); HEMOGLOBIN 13.1 g/dL (13.5-17.0); LYMPHOCYTES % (AUTO) 40.3 % (13-45); MEAN CORPUSCULAR HGB CONC 35.2 g/dL (32.0-36.0); MEAN CORPUSCULAR VOLUME 94 fl (80-97); MONOCYTES % (AUTO) 7.6 % (3-13); PLATELET COUNT 176 10^3/uL (150-450); RED BLOOD COUNT 3.95 10^6/uL (4.35-5.55); RED CELL DISTRIBUTION WIDTH 13.5 % (11.5-14.0); TOTAL CELLS COUNTED % (AUTO) 100 %; WHITE BLOOD COUNT 5.1 10^3/uL (4.0-10.5)
[2018-08-12 14:17] LABS: ALANINE AMINOTRANSFERASE 33 U/L (21-72); ALBUMIN 4.3 g/dL (3.5-5.0); ALKALINE PHOSPHATASE 58 U/L (38-126); ANION GAP 11 (5-19); ASPARTATE AMINO TRANSFERASE 42 U/L (17-59); BILIRUBIN,DIRECT 0.2 mg/dL (0.0-0.4); BILIRUBIN,TOTAL 0.2 mg/dL (0.2-1.3); BLOOD UREA NITROGEN 15 mg/dL (7-20); CALCIUM 9.4 mg/dL (8.4-10.2); CARBON DIOXIDE 27 mmol/L (22-30); CHLORIDE 101 mmol/L (98-107); GLUCOSE 108 mg/dL (75-110); SODIUM 139.4 mmol/L (137-145); TOTAL PROTEIN 7.4 g/dL (6.3-8.2)
--- NOTE | 2018-08-12 14:30 | ER Document Report ---
ED General - General Chief Complaint: Foot Pain Stated Complaint: FOOT PAIN Time Seen by Provider: 08/12/18 13:11 Notes: 48-year-old male with a 36 pack-year history of smoking presents with pain discoloration and ulceration of toes on his left foot, #3 and 5 which is been going on progressively for about 2 months, pain is sharp and shooting and is worse when walking. No calf pain or claudication. Ulcer on the third toe has been getting worse and the discoloration is progressed. He has not seen a primary care provider and has no diagnosis for this foot. TRAVEL OUTSIDE OF THE [place] IN LAST 30 DAYS: No - Related Data Allergies/Adverse Reactions: ketorolac [From Toradol] Allergy (Verified 08/12/18 12:43) morphine Allergy (Verified 08/12/18 12:43) permethrin Allergy (Verified 08/12/18 12:43) Past Medical History - Social History Smoking Status: Current Every Day Smoker Smoking Education Provided: Yes - The patient ED visit today was directly related to their abuse of tobacco. Family History: CAD, CVA, DM, Hyperlipidemia, Hypertension, Malignancy Patient has suicidal ideation: No Patient has homicidal ideation: No - Past Medical History Cardiac Medical History: Reports: Hx Hypertension Denies: Hx Heart Attack Pulmonary Medical History: Reports: Hx Bronchitis, Hx COPD Neurological Medical History: Reports: Hx Migraine, Hx Seizures Renal/ Medical History: Denies: Hx Peritoneal Dialysis Musculoskeletal Medical History: Denies Hx Arthritis, Reports Hx Musculoskeletal Trauma - right hand Psychiatric Medical History: Reports: Hx Bipolar Disorder, Hx Depression Traumatic Medical History: Reports: Hx Fractures - right hand Infectious Medical History: Reports: Hx C-Diff Past Surgical History: Reports: Hx Orthopedic Surgery - Right hand - Immunizations Immunizations up to date: Yes Hx Diphtheria, Pertussis, Tetanus Vaccination: Yes - 2014 Review of Systems - Review of Systems Notes: REVIEW OF SYSTEMS GEN: Denies fever, chills, weight loss ENT: Denies sore throat, nasal discharge, ear pain EYES: Denies blurry vision, eye pain, discharge CV: Denies chest pain, palpitations, edema RESP: Denies cough, shortness of breath, wheezing GI: Denies abdominal pain, nausea, vomiting, diarrhea MSK: And discoloration SKIN: Denies rash, skin lesions LYMPH: Denies swollen glands/lymph nodes NEURO: Denies headache, focal weakness or numbness, dizziness PSYCH: Denies depression, suicidal or homicidal ideation PHYSICAL EXAMINATION General: No acute distress, well-nourished Head: Atraumatic, normocephalic ENT: Mouth normal, oropharynx moist, no exudates or tonsillar enlargement Eyes: Conjunctiva normal, pupils equal, lids normal Neck: No JVD, supple, no guarding CVS: Normal rate, regular rhythm, no murmurs Resp: No resp distress, equal and normal breath sounds bilaterally GI: Nondistended, soft, no tenderness to palpation, no rebound or guarding Ext: Normal pulses and cap refill in the left foot however the third and fifth toe are discolored and dusky and cold. Decreased sensation in his toes. Back: No CVA or midline TTP Skin: No rash, warm Lymphatic: No lymphadeopathy noted Neuro: Awake, alert. Face symmetric. GCS 15. Physical Exam - Vital signs Vitals: Temp Pulse Resp BP Pulse Ox 98.6 F 60 16 166/97 H 98 08/12/18 12:51 08/12/18 12:51 08/12/18 12:51 08/12/18 12:51 08/12/18 12:51 Course - Re-evaluation Re-evalutation: 08/12/18 14:30 Presents with apparent circular dry compromise, and the third and fifth toe on the left foot which is subacute to chronic. Seems to be developing dusky coloration possible early onset gangrene. Pulses in the named arteries are normal but I suspect there is some microvascular issue or vasculitis going on. Differential includes Durbin's disease other vasculitis or simply microvascular disease from either undiagnosed diabetes smoking or both. Triage provider ordered labs, triage provider also ordered arterial Doppler ultrasounds which are in progress as I evaluate the patient. 08/12/18 15:48 Patient has CARLOS of 1 on the affected side of his foot however concern for embolic source. Labs are coming back normal. Discussed with Dr. Radha Sousa from vascular surgery who did accept the patient in transfer. Pending arteriogram. Pending results of ultrasound. Patient is now also complaining of chest pain which he did not initially complain as we will get an EKG and troponin. 10/02/18 13:10 No evidence of ongoing cardiac ischemia. Concern for vascular threat to the toe. Patient was transferred in stable condition for higher level of care at [facility]. - Vital Signs Vital signs: Temp Pulse Resp BP Pulse Ox 98.7 F 58 L 16 185/115 H 96 08/12/18 21:23 08/12/18 21:23 08/12/18 21:23 08/12/18 21:23 08/12/18 21:23 - Laboratory Result Diagrams: 08/12/18 13:46 08/12/18 13:46 Laboratory results interpreted by me: 08/12/18 13:46 RBC 3.95 L Hgb 13.1 L Hct 37.1 L - Diagnostic Test Radiology reviewed: Image reviewed, Reports reviewed Critical Care Note - Critical Care Note Total time excluding time spent on procedures (mins): 32 - The above patient is critically ill. Not including procedures, but including direct re-evaluations, speaking with patient and/or consultants, interpreting results, and documenting, I spent the total amount of minute listed listed above on critical care time Discharge - Discharge Clinical Impression: Dry gangrene Chest pain, unspecified Qualifiers: Chest pain type: other chest pain Qualified Code(s): R07.89 - Other chest pain Condition: Fair Disposition: [facility]
--- NOTE | 2018-08-12 15:19 | XCELERA REPORT ---
[address] [address] Lower Extremity Arterial Evaluation Name: MENDOZA BOUCHER SURINDER Otero III Age: 48 yrs Gender: Male : 1970 Patient Status: Preadmit Patient Location: ER Study Date: 08/12/2018 02:05 PM Procedure: A color flow and duplex scan of the lower extremity arteries was performed on the left with velocity and waveform anaylsis. Reason For Study: LLE CYANOSIS TOE ULCERS Ordering Physician: ROBERTO BUTLER Performed By: Alexi Gardiner Measurements and Calculations Right Left DUPLEX TRIMMER PSV 133.6 cm/sec Prox PFA PSV -154.5cm/sec Prox SFA PSV 173.7 cm/sec Mid SFA PSV -85.9 cm/sec Dist SFA PSV -78.6 cm/sec Prox Pop A PSV 104.2 cm/sec Dist REBECCA PSV 60.4 cm/sec Dist RETAIL LOAN ORIGINATOR ASSISTANT PSV 79.6 cm/sec Maxwell Pedis PSV 62.5 69.7 cm/sec Right Side Arterial Evaluation Dorsalis Pedis is triphasic, normal. Left Side Arterial Evaluation Normal velocity and triphasic waveforms noted from the Common Femoral artery to the infrageniculate vessels . Ankle Brachial index not obtained . Interpretation Summary No hemodynamically significant lesions in the left lower extremity only, on duplex imaging, at rest. : ROBERTO BUTLER > Kirk Craig
[2018-08-12] MEDS ORDERED: OXYCODONE-ACETAMINOPHEN 5-325 MG TABLET ONE (16:35)
--- NOTE | 2018-08-12 17:04 | RADIOLOGY REPORT (SQ) ---
EXAM DESCRIPTION: CTA ABD AORTA AND EXTREMITY COMPLETED DATE/TIME: 08/12/2018 4:42 pm REASON FOR STUDY: Ischemia COMPARISON: None. TECHNIQUE: CT scan of the body and lower extremities performed with and without intravenous contrast using helical scanning technique with dynamic intravenous contrast injection. Images reviewed with l leonardo, soft tissue, and bone windows. Reconstructed coronal and sagittal MPR images reviewed. All image s stored on PACS. Advanced 3D imaging as volume-rendering, MIPs, SSD performed? yes All CT scanners at this facility use dose modulation, iterative reconstruction, and/or weight based d osing when appropriate to reduce radiation dose to as low as reasonably achievable (ALARA). [facility]: Dose Right [facility]: CareDose [facility]: Dose Right [facility]: Teradose 4D [facility]: Epoch CONTRAST TYPE AND DOSE: contrast/concentration: Isovue 350.00 mg/ml; Total Contrast Delivered: 75.0 ml; Total Saline Delivered: 75.0 ml RENAL FUNCTION: BUN 15, creatinine 1.10 LIMITATIONS: None. FINDINGS: POST-CONTRAST IMAGING: AORTA AND VESSELS: No aneurysm. No dissection. Renal arteries, SMA, celiac without stenosis. There i s is calcified plaque in the common iliac arteries bilaterally. No high-grade stenosis. There is ap proximately 50% narrowing bilaterally. The vessels are small in caliber. RIGHT KIDNEY AND URETER: Incompletely imaged. LEFT KIDNEY AND URETER: Incompletely imaged. There is a small cortical cyst. RETROPERITONEUM: No retroperitoneal adenopathy, hemorrhage or masses. BOWEL AND PERITONEAL CAVITY: Incompletely imaged. Visualized GI tract unremarkable. APPENDIX: Normal in appearance. ABDOMINAL WALL: No masses. No hernias. BONY STRUCTURES: No significant or acute findings. 3-D IMAGING: Confirms the above findings. OTHER: No other significant finding. LOWER EXTREMITIES: RIGHT LEG: FEMORAL ARTERIES: No occlusions or significant stenoses. POPLITEAL ARTERY: No aneurysm. No occlusions or significant stenoses. TIBIOPERONEAL TRUNK AND RUNOFF VESSELS: There is 3 vessel runoff in the proximal calves. The vessels are very small in caliber. Below the mid calf there is appears to be single-vessel runoff via the p osterior tibial artery. The posterior tibial artery appears occluded just above the ankle. OTHER: No other significant finding. LEFT LEG: FEMORAL ARTERIES: No occlusions or significant stenoses. POPLITEAL ARTERY: No aneurysm. No occlusions or significant stenoses. TIBIOPERONEAL TRUNK AND RUNOFF VESSELS: Tibioperoneal trunk is patent. There is 3 vessel runoff to t he mid calf. Below this there is single-vessel runoff via the posterior tibial artery. OTHER: No other significant finding. IMPRESSION: 1. Calcified plaque in the common iliac arteries. There is approximately 50% narrowing in both of the common iliac arteries. The vessels are small in caliber. 2. Bilateral infrapopliteal disease right greater than left. No flow seen below the ankle on the ri ght. Correlation with duplex is recommended. TECHNICAL DOCUMENTATION: JOB ID: [id number] Quality ID # [id number]: Final reports with documentation of one or more dose reduction techniques (e.g., Au tomated exposure control, adjustment of the mA and/or kV according to patient size, use of iterative reconstruction technique) 2010 [employer]- All Rights Reserved Reading location - IP/workstation name: [email or web address]
--- NOTE | 2018-08-12 17:51 | EKG REPORT ---
SEVERITY:- NORMAL ECG - SINUS RHYTHM : Confirmed by: Jennifer Salinas MD 12-Aug-2018 17:51:16
[2018-08-12] MEDS ORDERED: HYDROMORPHONE HCL INJ/PF 2 MG/ML AMPULE IV ONE (17:59)
[2018-08-12] MEDS ORDERED: NICOTINE 14 MG/24 HR PATCH.TD24 TD ONE (21:20)
[2018-08-12 21:24] VITALS: BP 185/115
--- NOTE | 2018-08-12 21:27 | ER Document Report ---
Doctor's Note Notes: 08/12/18 21:26 Transport is here to take the patient to [facility]. Patient's vital signs are stable. He is stable for transport at this time.
== END 2018-08-12 21:30 | disposition short-term general hospital (02) ==
LOC: ER 12:35
DX: I96 Gangrene, not elsewhere classified (principal); R07.9 Chest pain, unspecified; R20.8 Other disturbances of skin sensation; I10 Essential (primary) hypertension; F17.200 Nicotine dependence, unspecified, uncomplicated; Z88.8 Allergy status to other drugs, medicaments and biological substances; Z88.5 Allergy status to narcotic agent; J44.9 Chronic obstructive pulmonary disease, unspecified
CPT/HCPCS: 93005; 99285; 96374; 36415; 85025; 80053; 84484; 93926 ×2; 75635; 93010; J1170

== ENCOUNTER 2018-10-31 12:43 | Emergency (ER) | payer SELFPAY ==
[2018-10-31] MEDS ORDERED: HYDROCODONE/ACETAMINOPHEN 5-325 MG TABLET PO ONE (14:06)
--- NOTE | 2018-10-31 14:09 | ER Document Report ---
ED Medical Screen (RME) - General Chief Complaint: Foot Pain Stated Complaint: LEFT 5TH TOE PAIN Time Seen by Provider: 10/31/18 13:56 Mode of Arrival: Ambulatory Information source: Patient TRAVEL OUTSIDE OF THE [place] IN LAST 30 DAYS: No - HPI Patient complains to provider of: LEFT 5TH TOE ULCER Notes: 10/31/18 14:07 Patient here with complaints of ulcer to the left fifth toe. The patient has a history of ulcerations due to peripheral arterial disease. He has had an abdominal aortic aneurysm this been repaired in the past as well as bilateral femoral artery stents. He is on Plavix and Xarelto. Here with complaints of left fifth great toe pain. States the pain is now rating up his foot and is concerned that he is developed an infection. He reports having a fever at home today. Exam Nontoxic-appearing, no distress. Lungs clear and equal throughout. Heart sounds normal. Ulceration to the left fifth toe with some mild redness and swelling identified. Tenderness to palpation. No green drainage. Foot pulses present at this time. Plan CBC, CMP, blood culture, foot x-ray, [place]. An initial examination was made on the patient as part of the triage process, and it was determined a more comprehensive evaluation was necessary. Initial labs were ordered and patient was transferred to another provider in the ED who assumed care and finished evaluation and plan. - Related Data Allergies/Adverse Reactions: ketorolac [From Toradol] Allergy (Verified 10/31/18 12:45) morphine Allergy (Verified 10/31/18 12:45) permethrin Allergy (Verified 10/31/18 12:45) Past Medical History - Social History Frequency of alcohol use: None Drug Abuse: None Family history: None - Past Medical History Cardiac Medical History: Reports: Hx Hypertension Denies: Hx Heart Attack Pulmonary Medical History: Reports: Hx Bronchitis, Hx COPD Neurological Medical History: Reports: Hx Migraine, Hx Seizures Renal/ Medical History: Denies: Hx Peritoneal Dialysis Musculoskeltal Medical History: Denies Hx Arthritis, Reports Hx Musculoskeletal Trauma - right hand Psychiatric Medical History: Reports: Hx Bipolar Disorder, Hx Depression Traumatic Medical History: Reports: Hx Fractures - right hand Infectious Medical History: Reports: Hx C-Diff Past Surgical History: Reports: Hx Cardiac Surgery - AAA repair, Hx Orthopedic S urgery - Right hand - Immunizations Immunizations up to date: Yes Hx Diphtheria, Pertussis, Tetanus Vaccination: Yes - 2014 Physical Exam - Vital signs Vitals: Temp Pulse Resp BP Pulse Ox 98.2 F 62 18 137/85 H 98 10/31/18 12:51 10/31/18 12:51 10/31/18 12:51 10/31/18 12:51 10/31/18 12:51 Course - Vital Signs Vital signs: Temp Pulse Resp BP Pulse Ox 98.2 F 62 18 137/85 H 98 10/31/18 12:51 10/31/18 12:51 10/31/18 12:51 10/31/18 12:51 10/31/18 12:51
[2018-10-31] MEDS ORDERED: CLINDAMYCIN 600 MG/D5W RTU 600 MG/50 ML RTUPB IV ONE (14:10)
--- NOTE | 2018-10-31 14:42 | RADIOLOGY REPORT (SQ) ---
EXAM DESCRIPTION: FOOT LEFT COMPLETE COMPLETED DATE/TIME: 10/31/2018 2:34 pm REASON FOR STUDY: LEFT 5TH TOE ULCER COMPARISON: None. NUMBER OF VIEWS: 07/08/2018 TECHNIQUE: AP, lateral and oblique radiographic images acquired of the left foot. LIMITATIONS: None. FINDINGS: MINERALIZATION: Normal. BONES: No acute fracture or dislocation. No worrisome bone lesions. JOINTS: No effusions. SOFT TISSUES: No soft tissue swelling. No foreign body. OTHER: No other significant finding. IMPRESSION: NEGATIVE STUDY OF THE LEFT FOOT. NO RADIOGRAPHIC EVIDENCE OF ACUTE INJURY. TECHNICAL DOCUMENTATION: JOB ID: [id number] [employer]- All Rights Reserved Reading location - IP/workstation name: [email or web address]
[2018-10-31 15:28] LABS: ABSOLUTE EOSINOPHILS # (AUTO) 0.2 10^3/uL (0.0-0.6); ABSOLUTE LYMPHOCYTES (AUTO) 2.6 10^3/uL (0.5-4.7); ABSOLUTE MONOCYTES (AUTO) 0.4 10^3/uL (0.1-1.4); ABSOLUTE NEUT (AUTO) 3.2 10^3/uL (1.7-8.2); BASOPHILS % (AUTO) 0.4 % (0-2); EOSINOPHILS % (AUTO) 2.9 % (0-6); HEMATOCRIT 41.6 % (37.9-51.0); HEMOGLOBIN 14.1 g/dL (13.5-17.0); LYMPHOCYTES % (AUTO) 40.6 % (13-45); MEAN CORPUSCULAR HEMOGLOBIN 31.9 pg (27.0-33.4); MEAN CORPUSCULAR HGB CONC 33.8 g/dL (32.0-36.0); MEAN CORPUSCULAR VOLUME 94 fl (80-97); MONOCYTES % (AUTO) 6.3 % (3-13); PLATELET COUNT 179 10^3/uL (150-450); RED BLOOD COUNT 4.41 10^6/uL (4.35-5.55); RED CELL DISTRIBUTION WIDTH 14.8 % (11.5-14.0); SEGMENTED NEUTROPHILS % (AUTO) 49.8 % (42-78); TOTAL CELLS COUNTED % (AUTO) 100 %; WHITE BLOOD COUNT 6.4 10^3/uL (4.0-10.5)
--- NOTE | 2018-10-31 16:26 | ER Document Report ---
ED General - General Chief Complaint: Foot Pain Stated Complaint: LEFT 5TH TOE PAIN Time Seen by Provider: 10/31/18 13:56 Primary Care Provider: BLAYNE,NO [Primary Care Provider] - Follow up as needed Mode of Arrival: Ambulatory Information source: Patient TRAVEL OUTSIDE OF THE [place] IN LAST 30 DAYS: No - HPI Patient complains to provider of: Ulcer on the small toe of the left foot Onset: Last week Onset/Duration: Gradual Quality of pain: Sharp Severity: Severe Pain Level: 4 Associated symptoms: denies: Chills, Fever Exacerbated by: Denies Relieved by: Denies Similar symptoms previously: No Recently seen / treated by doctor: No Notes: Patient is a 48-year-old male who has developed this ulcer on the bottom of his left small toe. He has a history of peripheral arterial disease. He sees a vascular surgeon in [place] named Dr. Catherine and has had stents placed to restore the flow to his left foot. He has been working and using his feet more often recently at work and feels like the ulcer is gotten worse. He is due to see his vascular surgeon on Saturday of next week. - Related Data Allergies/Adverse Reactions: ketorolac [From Toradol] Allergy (Verified 10/31/18 12:45) morphine Allergy (Verified 10/31/18 12:45) permethrin Allergy (Verified 10/31/18 12:45) Past Medical History - General Information source: Patient - Social History Smoking Status: Current Every Day Smoker Frequency of alcohol use: None Drug Abuse: None Family History: CAD, CVA, DM, Hyperlipidemia, Hypertension, Malignancy Patient has suicidal ideation: No Patient has homicidal ideation: No - Past Medical History Cardiac Medical History: Reports: Hx Hypertension Denies: Hx Heart Attack Pulmonary Medical History: Reports: Hx Bronchitis, Hx COPD Neurological Medical History: Reports: Hx Migraine, Hx Seizures Renal/ Medical History: Denies: Hx Peritoneal Dialysis Musculoskeletal Medical History: Denies Hx Arthritis, Reports Hx Musculoskeletal Trauma - right hand Psychiatric Medical History: Reports: Hx Bipolar Disorder, Hx Depression Traumatic Medical History: Reports: Hx Fractures - right hand Infectious Medical History: Reports: Hx C-Diff Past Surgical History: Reports: Hx Cardiac Surgery - AAA repair, Hx Orthopedic Surgery - Right hand - Immunizations Immunizations up to date: Yes Hx Diphtheria, Pertussis, Tetanus Vaccination: Yes - 2014 Review of Systems - Review of Systems Notes: Constitutional: No fevers. No chills. EENT: No eye redness. No eye pain. No ear pain. No sore throat. Cardiovascular: No chest pain. No palpitations. Respiratory: No cough. No shortness of breath. No respiratory distress. Gastrointestinal: No abdominal pain. No nausea, vomiting, or diarrhea. Genitourinary: Atraumatic. No lesions. No pain. No discharge. Musculoskeletal: Atraumatic. No swelling. No deformities. Skin: Ulcer to the bottom of the left small toe with scab formation Lymphatic: No swollen lymph nodes. Neurologic: No headache. No syncope. Psychiatric: No suicidal or homicidal ideation. Physical Exam - Vital signs Vitals: Temp Pulse Resp BP Pulse Ox 98.2 F 62 18 137/85 H 98 10/31/18 12:51 10/31/18 12:51 10/31/18 12:51 10/31/18 12:51 10/31/18 12:51 - Notes Notes: General: Well-developed, well-nourished. In no acute distress. Non-toxic appearing. Cardiac: Well-perfused. Regular rate and rhythm. No murmurs, rubs, or gallops. Pulmonary: No respiratory distress. No cyanosis. Bilateral lung fiels are clear to auscultation. Abdominal: Non-distended. Non-rigid. Bowels sounds are present in all four quadrants. No guarding or rebound. HEENT: Head is atraumatic. Conjunctivae not reddened. No tearing. PERRL. EOMI. Orbits atraumatic. No periorbital swelling or erythema. Oropharynx is without erythema, swelling, or exudates. Neck: Supple. No adenopathy. No meningismus. Dermatologic: Warm with good turgor. No rash. Atraumatic. Chest: Atraumatic. No chest wall tenderness to palpation. Musculoskeletal: Left foot is examined. There is a faint dorsalis pedis pulse palpable. The foot does not look ischemic. There is no ulcer to the plantar surface of the left fifth toe with scab formation and erythema. This is not malodorous. There is no crepitus. Genitourinary: Examination deferred Neurologic: No gross neurologic deficits. Psychiatric: Normal mood. Course - Re-evaluation Re-evalutation: 10/31/18 16:27 Patient is under the care of Dr. Catherine in [place]. He will see him this coming Saturday. We will start him on some antibiotics and pain medication and have him follow-up accordingly. 10/31/18 18:25 Patient has evidently had at least 2 blood draws that were hemolyzed in the technicians were coming to do a third. Patient is declining any additional venipunctures. Just wants to be discharged. I will let him go and he will follow-up with his vascular surgeon on Saturday he will return here if some anything gets suddenly worse - Vital Signs Vital signs: Temp Pulse Resp BP Pulse Ox 98.2 F 62 18 137/85 H 98 10/31/18 12:51 10/31/18 12:51 10/31/18 12:51 10/31/18 12:51 10/31/18 12:51 - Laboratory Result Diagrams: 10/31/18 14:55 10/31/18 14:55 Laboratory results interpreted by me: 10/31/18 14:55 RDW 14.8 H Discharge - Discharge Clinical Impression: Toe ulcer Qualifiers: Laterality: left Non-pressure ulcer stage: unspecified non-pressure ulcer stage Qualified Code(s): L97.529 - Non-pressure chronic ulcer of other part of left foot with unspecified severity Condition: Good Disposition: HOME, SELF-CARE Instructions: Foot or Leg Ulcer ([facility]) Additional Instructions: Start the antibiotics as directed. Pain medications as needed. Follow-up with your vascular surgeon on Saturday as scheduled. If your symptoms get significantly worse or your foot starts to turn black, return immediately to the hospital. Prescriptions: Hydrocodone/Acetaminophen [[place] 5-325 Tablet] 1 each PO Q6HP PRN #12 tablet PRN Reason: Clindamycin HCl 300 mg PO QID 10 Days #40 capsule Referrals: SARAH CISNEROS [Primary Care Provider] - Follow up as needed nora catherine [Other] - Follow up as needed
[2018-10-31] MEDS ORDERED: HYDROMORPHONE HCL INJ/PF 2 MG/ML AMPULE IV ONE (16:38)
[2018-10-31 18:39] VITALS: BP 130/82
== END 2018-10-31 18:38 | disposition home or self-care (01) ==
LOC: ER 12:43
DX: L97.529 Non-pressure chronic ulcer of other part of left foot with unspecified severity (principal); M79.672 Pain in left foot; F17.200 Nicotine dependence, unspecified, uncomplicated; Z88.6 Allergy status to analgesic agent
CPT/HCPCS: 99283; 96375; 96365; 36415; 87040; 85025; 73630; J1170

== ENCOUNTER 2019-01-18 17:16 | Emergency (ER) | payer SELFPAY ==
--- NOTE | 2019-01-18 19:42 | ER Document Report ---
ED Medical Screen (RME) - General Chief Complaint: Chest Pain Stated Complaint: CHEST PAIN Time Seen by Provider: 01/18/19 19:31 Primary Care Provider: SARAH CISNEROS [Primary Care Provider] - Follow up as needed Mode of Arrival: Ambulatory Information source: Patient Notes: 48-year-old male here for multiple complaints, who had a AAA repair and what sounds like a bilateral femoral stents for bilat occluded femoral arteries in July 2018 here for worsening fatigue, dizziness, headaches, cp, sob and some intermittent blurry vision where he states it feels like his vision is going out over the last 10 days. He states his blood pressure has been running a little higher and his pulse was 115 today so he came in. he states he is on carvedilol, clonidine, and another bp med and that his pulse and bp usually are well controlled. pcp is [facility] and pt states they had mentioned pain management to him but he states he has no health insurance so he cannot afford the medication. He is also on Xarelto since his AAA repair. He did have a remote TIA secondary to poorly controlled hypertension in the . He does endorse medication compliance now. He states he has chronic low back pain and was told he had bulging discs but he cannot afford surgery and he has been taking a lot of Motrin. He denies change in color or caliber stool. He states it does cause him some GI upset however. No fall or trauma. He is able to walk. No other changes neurologic or altered mental status. no numbness, tingling, weakness, saddle anesthesia, incontinence, slurred speech, one sided weakness, facial droop, cough, recent head injury, uti sx, syncope, hx of arrhythmias or any other sx. He also states that he was seen here for his pain at the beginning of October 2018 and shows me the Vicodin prescription that was written for him from here then that he never filled. He states that Vicodin does not work. He states the only thing that works for his pain is oxycodone. No other complaints this time. >>>> PHYSICAL_EXAM: GENERAL_APPEARANCE: well_nourished, alert, cooperative, no_acute_distress, no_obvious_discomfort. pleasant, thin middle aged white male, appears slightly older than stated age, smiling, speaking in full sentences, in no sign of pain or resp distress when distracted. VITALS: reviewed, see vital signs table. HEAD: no_swelling\tenderness on the head. normocephalic. atraumatic. no toure signs. no raccoons eyes. EYES: PERRL, EOMI, conjunctiva_clear. NOSE: no_nasal_discharge. MOUTH: (-)decreased moisture. THROAT: no_tonsilar_inflammation, no_airway_obstruction. no_lymphadenopathy NECK: supple, no_neck_tenderness, full rom. full strength. BACK: no midline_back_tenderness. mild ttp of bilat lower paralumbar musculature. palpation here reproduces pts pain exactly LUNGS: no_wheezing, ctab (-)accessory muscle use, good air exchange bilateral. HEART: normal_rate, normal_rhythm, ABDOMEN: normal_BS, soft, no_abd_tenderness, (-)guarding, (-)rebound, no grossly palpable pulsatile mass however exam limited as this was a brief abd exam and pt sitting in chair as this was a triage exam and no bed was available during this time, no distension or peritoneal signs. no cva ttp EXTREMITIES: strength 5/5 in all_extremities, good pulses in all_extremities, no_swelling\tenderness in the extremities, no_edema. full rom. normal gait. good pulses. brisk cap refill. 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 neg jarred sign NEURO: motor and sensation intact, cranial nerves 2-12 intact, SKIN: warm, dry, good_color, no_rash. MENTAL_STATUS: speech_clear, oriented_X_3, normal_affect, responds_appropriately to questions. I have greeted and performed a rapid initial assessment of this patient. A comprehensive ED assessment and evaluation of the patient, analysis of test results and completion of medical decision making process will be conducted by an additional ED providers. Documentation achieved through voice recording which my lead to some occasional accidental typographical errors. Extensive efforts have been made to proof read documentation to make sure these are the least as possible. TRAVEL OUTSIDE OF THE [place] IN LAST 30 DAYS: No - Related Data Allergies/Adverse Reactions: ketorolac [From Toradol] Allergy (Verified 01/18/19 17:17) morphine Allergy (Verified 01/18/19 17:17) permethrin Allergy (Verified 01/18/19 17:17) Past Medical History - Social History Family history: None - Past Medical History Cardiac Medical History: Reports: Hx Hypertension Denies: Hx Heart Attack Pulmonary Medical History: Reports: Hx Bronchitis, Hx COPD Neurological Medical History: Reports: Hx Migraine, Hx Seizures Renal/ Medical History: Denies: Hx Peritoneal Dialysis Musculoskeltal Medical History: Denies Hx Arthritis, Reports Hx Musculoskeletal Trauma - right hand Psychiatric Medical History: Reports: Hx Bipolar Disorder, Hx Depression Traumatic Medical History: Reports: Hx Fractures - right hand Infectious Medical History: Reports: Hx C-Diff Past Surgical History: Reports: Hx Cardiac Surgery - AAA repair, Hx Orthopedic Surgery - Right hand - Immunizations Immunizations up to date: Yes Hx Diphtheria, Pertussis, Tetanus Vaccination: Yes - 2014 Physical Exam - Vital signs Vitals: Temp Pulse Resp BP Pulse Ox 98.0 F 86 17 154/96 H 96 01/18/19 17:33 01/18/19 17:33 01/18/19 17:33 01/18/19 17:33 01/18/19 17:33 Course - Vital Signs Vital signs: Temp Pulse Resp BP Pulse Ox 98.0 F 86 17 154/96 H 96 01/18/19 17:33 01/18/19 17:33 01/18/19 17:33 01/18/19 17:33 01/18/19 17:33 Doctor's Discharge - Discharge Referrals: LOCALMD,NO [Primary Care Provider] - Follow up as needed
[2019-01-18 20:22] LABS: ABSOLUTE EOSINOPHILS # (AUTO) 0.1 10^3/uL (0.0-0.6); ABSOLUTE LYMPHOCYTES (AUTO) 2.4 10^3/uL (0.5-4.7); ABSOLUTE MONOCYTES (AUTO) 0.9 10^3/uL (0.1-1.4); ABSOLUTE NEUT (AUTO) 5.2 10^3/uL (1.7-8.2); BASOPHILS % (AUTO) 0.2 % (0-2); EOSINOPHILS % (AUTO) 1.6 % (0-6); HEMATOCRIT 38.3 % (37.9-51.0); HEMOGLOBIN 13.1 g/dL (13.5-17.0); LYMPHOCYTES % (AUTO) 27.9 % (13-45); MEAN CORPUSCULAR HEMOGLOBIN 32.2 pg (27.0-33.4); MEAN CORPUSCULAR HGB CONC 34.2 g/dL (32.0-36.0); MEAN CORPUSCULAR VOLUME 94 fl (80-97); MONOCYTES % (AUTO) 10.4 % (3-13); PLATELET COUNT 227 10^3/uL (150-450); RED BLOOD COUNT 4.08 10^6/uL (4.35-5.55); RED CELL DISTRIBUTION WIDTH 14.4 % (11.5-14.0); SEGMENTED NEUTROPHILS % (AUTO) 59.9 % (42-78); TOTAL CELLS COUNTED % (AUTO) 100 %; WHITE BLOOD COUNT 8.7 10^3/uL (4.0-10.5)
[2019-01-18 20:42] LABS: ALANINE AMINOTRANSFERASE 26 U/L (21-72); ALBUMIN 4.7 g/dL (3.5-5.0); ALKALINE PHOSPHATASE 57 U/L (38-126); ANION GAP 10 (5-19); ASPARTATE AMINO TRANSFERASE 32 U/L (17-59); BILIRUBIN,DIRECT 0.2 mg/dL (0.0-0.4); BILIRUBIN,TOTAL 0.3 mg/dL (0.2-1.3); BLOOD UREA NITROGEN 22 mg/dL (7-20); CALCIUM 9.7 mg/dL (8.4-10.2); CARBON DIOXIDE 27 mmol/L (22-30); CHLORIDE 102 mmol/L (98-107); GLUCOSE 105 mg/dL (75-110); POTASSIUM 3.4 mmol/L (3.6-5.0); SODIUM 138.7 mmol/L (137-145); TOTAL PROTEIN 8.7 g/dL (6.3-8.2)
[2019-01-18 20:49] LABS: APPEARANCE,URINE CLEAR; BILIRUBIN,URINE NEGATIVE (NEGATIVE); COLOR,URINE YELLOW; GLUCOSE, URINE NEGATIVE (NEGATIVE); KETONES,URINE NEGATIVE (NEGATIVE); LEUKOCYTE ESTERASE,URINE NEGATIVE (NEGATIVE); NITRITE,URINE NEGATIVE (NEGATIVE); PROTEIN,URINE NEGATIVE (NEGATIVE); URINE SPECIFIC GRAVITY 1.018; UROBILINOGEN,URINE NEGATIVE mg/dL (<2.0)
[2019-01-18 20:50] LABS: PARTIAL THROMBOPLASTIN TIME 33.5 SEC (23.5-35.8); PROTHROMBIN TIME 15.3 SEC (11.4-15.4)
--- NOTE | 2019-01-18 20:52 | RADIOLOGY REPORT (SQ) ---
EXAM DESCRIPTION: [facility]: XR CHEST 2 VIEWS Views: 2 CLINICAL HISTORY: 48 years Male, headache; chest pains COMPARISON: 01/07/2018 FINDINGS: Lungs are somewhat hyperinflated as on prior exam. No acute infiltrate. No pneumothorax or pleural effusion. Cardiomediastinal silhouette is within normal limits. Bony structures are unremarkable for age. IMPRESSION: 1. No acute cardiothoracic abnormality.
[2019-01-18 20:53] LABS: NT PRO BNP 107 pg/mL (5-900)
[2019-01-18 20:54] LABS: CREATINE KINASE MB < 0.22 ng/mL (<4.55); TROPONIN I < 0.012 ng/mL
--- NOTE | 2019-01-18 20:55 | RADIOLOGY REPORT (SQ) ---
EXAM DESCRIPTION: [facility]: CT HEAD WITHOUT IV CONTRAST CLINICAL HISTORY: 48 years Male; headache, dizziess TECHNIQUE: Noncontrast CT head. All CT scans at this facility use dose modulation, iterative reconstruction, and/or weight based dosing when appropriate to reduce radiation dose to as low as reasonably achievable. COMPARISON: CT 03/09/2015 FINDINGS: Lozano matter, white matter, ventricles, and cisterns are within normal limits. No acute hemorrhage or mass effect. Visualized portions of paranasal sinuses and mastoids are clear. Old nasal fractures are noted. No acute calvarial fractures. IMPRESSION: 1. No acute intracranial findings.
[2019-01-18 20:57] LABS: LIPASE 196.9 U/L (23-300)
[2019-01-18 21:01] LABS: URINE AMPHETAMINES SCREEN NEGATIVE; URINE BARBITURATES SCREEN NEGATIVE; URINE BENZODIAZEPINES SCREEN NEGATIVE; URINE COCAINE SCREEN NEGATIVE; URINE MARIJUANA (THC) SCREEN NEGATIVE; URINE METHADONE SCREEN NEGATIVE; URINE PHENCYCLIDINE SCREEN NEGATIVE
--- NOTE | 2019-01-18 21:19 | EKG REPORT ---
SEVERITY:- NORMAL ECG - SINUS RHYTHM : Confirmed by: Oziel Trevino MD 18-Jan-2019 21:18:59
[2019-01-18] MEDS ORDERED: CYCLOBENZAPRINE HCL 10 MG TABLET PO ONE (22:17)
--- NOTE | 2019-01-18 23:10 | ER Document Report ---
ED General - General Chief Complaint: Chest Pain Stated Complaint: CHEST PAIN Time Seen by Provider: 01/18/19 19:31 Primary Care Provider: SARAH CISNEROS [NO LOCAL MD] - Follow up as needed Mode of Arrival: Ambulatory TRAVEL OUTSIDE OF THE [place] IN LAST 30 DAYS: No - HPI Notes: Patient is a 48-year-old male who presents to the emergency department for evalu ation of a multitude of complaints. He states he has had some vision changes. He said intermittent chest pain or shortness of breath. He complains of dizziness and near syncope. He also complains of back pain, pain into his left leg, and pain in his left pinky toe. He had an AAA and revascularization of bilateral lower extremities back in July. He is currently applying for disability and Social Security. He was recently told his testosterone was low. He is awaiting referral to pain clinic, but states that he does not have insurance and does not think he can afford it. He does repeatedly tells me that he cannot sleep at night. He just cannot take the pain anymore. He is hopeful for something to help with that. He has been on Prozac for 16 years, dose unchanged. He denies any suicidal or homicidal ideation. Denies any visual or auditory hallucination. The headaches are not the worst headaches of his life. He describes them is on bilateral sides of his head and in the posterior aspects. Nothing seems to make it better or worse. He states his near syncopal episodes happen at random times. They are not positional. He does have a history of high blood pressure. He admits he has not taken his blood pressure medicine this evening. His chest pain is very vague. He states "I do not know it just hurts." He states he feels somewhat short of breath when he has the chest pain. His dizziness and near syncope do not seem to be coinciding with the chest pain. He states to me that he just wants the pain to stop. He asks for prescription of Percocet to get him through until he goes back to [facility]. - Related Data Allergies/Adverse Reactions: ketorolac [From Toradol] Allergy (Verified 01/18/19 17:17) morphine Allergy (Verified 01/18/19 17:17) permethrin Allergy (Verified 01/18/19 17:17) Past Medical History - General Information source: Patient - Social History Smoking Status: Current Every Day Smoker Chew tobacco use (# tins/day): No Frequency of alcohol use: None Drug Abuse: None Family History: CAD, CVA, DM, Hyperlipidemia, Hypertension, Malignancy Patient has suicidal ideation: No Patient has homicidal ideation: No - Past Medical History Cardiac Medical History: Reports: Hx Hypertension, Hx Peripheral Vascular Disease Denies: Hx Heart Attack Pulmonary Medical History: Reports: Hx Bronchitis, Hx COPD Neurological Medical History: Reports: Hx Migraine, Hx Seizures Renal/ Medical History: Denies: Hx Peritoneal Dialysis Musculoskeletal Medical History: Denies Hx Arthritis, Reports Hx Musculoskeletal Trauma - right hand Psychiatric Medical History: Reports: Hx Bipolar Disorder, Hx Depression Traumatic Medical History: Reports: Hx Fractures - right hand Infectious Medical History: Reports: Hx C-Diff Past Surgical History: Reports: Hx Cardiac Surgery - AAA repair, Hx Orthopedic Surgery - Right hand - Immunizations Immunizations up to date: Yes Hx Diphtheria, Pertussis, Tetanus Vaccination: Yes - 2014 Review of Systems - Review of Systems Constitutional: See HPI EENT: No symptoms reported Cardiovascular: See HPI Respiratory: See HPI Gastrointestinal: No symptoms reported Genitourinary: No symptoms reported Musculoskeletal: See HPI Skin: No symptoms reported Neurological/Psychological: No symptoms reported Physical Exam - Vital signs Vitals: Temp Pulse Resp BP Pulse Ox 98.0 F 86 17 154/96 H 96 01/18/19 17:33 01/18/19 17:33 01/18/19 17:33 01/18/19 17:33 01/18/19 17:33 - Notes Notes: This is a 48-year-old male who appears his stated age in no acute distress. Is very depressed and flat in affect. He has diminished eye contact. Vital signs reviewed, please refer to chart. Head is normocephalic, atraumatic. Pupils equal round, reactive to light. TMs are pearly duque with good light reflex. Neck is supple without meningismus. Heart is regular rate and rhythm. Lungs are clear to auscultation bilaterally. Abdomen is soft, nontender, normoactive bowel sounds throughout. Extremities without cyanosis, clubbing. Posterior calves are nontender. Peripheral pulses are equal. Skin is warm and dry. He does have some dusky numbness to the left pinky toe, which is stable per the patient. Patient is awake, alert, oriented x3. Cranial nerves II - XII are grossly intact without focal neurological deficits. Strength is plus 5 out of 5 bilateral upper and lower extremities. Sensation is intact. Reflexes symmetrical. Intact [id number], rapid alternating movements, [id number]. Course - Re-evaluation Re-evalutation: 01/18/19 23:07 Patient presents emergency department for evaluation. He complains of multiple issues today. Laboratory investigations and imaging were ordered. Nothing acute was noted in blood work or imaging. The patient talked significantly about his pain. He states he has a history of bulging disks and was told back in 2002 he required surgery. I told him that he should seek out further referral through [facility]. He states he does not have insurance. I explained to him that, as he has not been working since his aortic repair, he would likely mollify for disability. He states he is currently in the process of applying for disability and Social Security. I spent several minutes speaking with the patient and his parents. My strong suspicion is that this patient is clinically depressed. He complains of malaise and multiple somatic issues. He admits he is been having trouble with his daughter. He is no longer working. He is not able to work as a result of his medical issues. I strongly encourage the patient to seek out a different antidepressant. Certainly there SNRIs that migh t be helpful with only his depression but his pain. He also has been told recently that he has low testosterone and he has a follow-up appointment in regards to that. Certainly that may help him with his fatigue and malaise. The patient continued to complain of pain to me. He states that he is not able to sleep. I told him I would be happy to try and help him with his symptoms of back pain at this time. I did order Flexeril. The patient became more agitated. He stated he would like to leave AGAINST MEDICAL ADVICE. I explained to the patient his blood pressure was elevated here. Certainly that could be as a result of missing his blood pressure medications tonight, as well as increased pain, but I encouraged him to stay. At this point he would just like to leave AGAINST MEDICAL ADVICE. I strongly urged him to follow-up closely with [facility]. He is amenable to this and was discharged AGAINST MEDICAL ADVICE. - Vital Signs Vital signs: Temp Pulse Resp BP Pulse Ox 97.9 F 76 20 198/110 H 97 01/18/19 21:09 01/18/19 20:33 01/18/19 22:21 01/18/19 22:21 01/18/19 22:21 - Laboratory Result Diagrams: 01/18/19 20:10 01/18/19 20:10 Laboratory results interpreted by me: 01/18/19 01/18/19 01/18/19 20:10 20:10 20:10 RBC 4.08 L Hgb 13.1 L RDW 14.4 H Potassium 3.4 L BUN 22 H Creatine Kinase 52 L Total Protein 8.7 H - Diagnostic Test Radiology reviewed: Reports reviewed Radiology results interpreted by me: 01/18/19 23:10 Chest X-Ray 01/18/19 19:43 IMPRESSION: 1. No acute cardiothoracic abnormality. Head CT 01/18/19 19:46 IMPRESSION: 1. No acute intracranial findings. - EKG Interpretation by Me Additional EKG results interpreted by me: 01/18/19 23:10 Sinus mechanism with a rate of 80 bpm. Normal axis and intervals, no acute ST changes concerning for ischemia or infarction. Discharge - Discharge Clinical Impression: Low testosterone Chest pain Qualifiers: Chest pain type: unspecified Qualified Code(s): R07.9 - Chest pain, unspecified Hypertension Qualifiers: Hypertension type: essential hypertension Qualified Code(s): I10 - Essential (primary) hypertension Chronic pain Qualifiers: Chronic pain type: other chronic pain Qualified Code(s): G89.29 - Other chronic pain Depression Qualifiers: Depression Type: unspecified Qualified Code(s): F32.9 - Major depressive disorder, single episode, unspecified Condition: Stable Disposition: AGAINST MEDICAL ADVICE Instructions: Chest Pain of Unclear Cause ([facility]), Chronic Back Pain ([facility]), High Blood Pressure, Requiring Treatment ([facility]) Additional Instructions: You have elected to leave AGAINST MEDICAL ADVICE. Please take your blood pressure medications upon returning home. My recommendation to you is to follow-up with primary care, seek out treatment for your low testosterone as well as possible alternate antidepressants. Return to the emergency department with worsening or new concerning symptoms of any sort. Referrals: LOCALMD,NO [NO LOCAL MD] - Follow up as needed
[2019-01-18 23:59] VITALS: BP 177/118
== END 2019-01-18 23:30 | disposition left against medical advice (07) ==
LOC: ER 17:16
DX: R07.9 Chest pain, unspecified (principal); I10 Essential (primary) hypertension; F32.9 Major depressive disorder, single episode, unspecified; Z79.899 Other long term (current) drug therapy; G89.29 Other chronic pain; R79.89 Other specified abnormal findings of blood chemistry; R55 Syncope and collapse; M54.9 Dorsalgia, unspecified; M79.605 Pain in left leg; M79.675 Pain in left toe(s); H53.9 Unspecified visual disturbance; R51 Headache; R53.81 Other malaise; R53.83 Other fatigue; F17.200 Nicotine dependence, unspecified, uncomplicated; J44.9 Chronic obstructive pulmonary disease, unspecified; Z88.8 Allergy status to other drugs, medicaments and biological substances; Z88.5 Allergy status to narcotic agent; Z53.20 Procedure and treatment not carried out because of patient's decision for unspecified reasons
CPT/HCPCS: 36415; 70450; 71046; 80053; 80307; 81001; 82550; 82553; 83690; 83735; 83880; 84484; 85025; 85610; 85730; 93005; 93010; 99285

== ENCOUNTER 2019-02-18 12:47 | Emergency (ER) | payer SELFPAY ==
[2019-02-18 13:01] VITALS: BP 156/90
--- NOTE | 2019-02-18 14:01 | ER Document Report ---
ED Medical Screen (RME) - General Chief Complaint: Psych Problem Stated Complaint: PSYCH Time Seen by Provider: 02/18/19 13:56 TRAVEL OUTSIDE OF THE [place] IN LAST 30 DAYS: No - HPI Notes: 02/18/19 14:00 Patient is a 48-year-old male with history of depression, hypertension, coronary artery disease, peripheral vascular disease who presents complaining of having suicidal ideations this morning with plan to take his pills. No HI. No other auditory or visual hallucinations. Patient states that he is currently feeling better and does not have any thoughts right now. He is accompanied by immigration case worker. Denies SMITH, fever, neck pain, URI, CP, SOB, Abd pain, dysuria, back pain, or rash. I have treated and performed a rapid initial assessment of this patient. A comprehensive ED assessment and evaluation of the patient, analysis of test results and completion of medical decision making process will be conducted by additional ED providers. PHYSICAL EXAMINATION: GENERAL: Well-appearing, well-nourished and in no acute distress. A&Ox4. Answers questions appropriately. LUNGS: Breath sounds clear to auscultation bilaterally and equal. No wheezes rales or rhonchi. HEART: Regular rate and rhythm without murmurs, rubs, gallops. - Related Data Allergies/Adverse Reactions: ketorolac [From Toradol] Allergy (Verified 02/18/19 12:51) morphine Allergy (Verified 02/18/19 12:51) permethrin Allergy (Verified 02/18/19 12:51) Past Medical History - Social History Family history: None - Past Medical History Cardiac Medical History: Reports: Hx Hypertension, Hx Peripheral Vascular Disease Denies: Hx Heart Attack Pulmonary Medical History: Reports: Hx Bronchitis, Hx COPD Neurological Medical History: Reports: Hx Migraine, Hx Seizures Renal/ Medical History: Denies: Hx Peritoneal Dialysis Musculoskeltal Medical History: Denies Hx Arthritis, Reports Hx Musculoskeletal Trauma - right hand Psychiatric Medical History: Reports: Hx Bipolar Disorder, Hx Depression Traumatic Medical History: Reports: Hx Fractures - right hand Infectious Medical History: Reports: Hx C-Diff Past Surgical History: Reports: Hx Cardiac Surgery - AAA repair, Hx Orthopedic Surgery - Right hand - Immunizations Immunizations up to date: Yes Hx Diphtheria, Pertussis, Tetanus Vaccination: Yes - 2014 Physical Exam - Vital signs Vitals: Temp Pulse Resp BP Pulse Ox 98.0 F 61 20 156/90 H 98 02/18/19 12:59 02/18/19 12:59 02/18/19 12:59 02/18/19 12:59 02/18/19 12:59 Course - Vital Signs Vital signs: Temp Pulse Resp BP Pulse Ox 98.0 F 61 20 156/90 H 98 02/18/19 12:59 02/18/19 12:59 02/18/19 12:59 02/18/19 12:59 02/18/19 12:59
[2019-02-18 14:26] LABS: ABSOLUTE EOSINOPHILS # (AUTO) 0.1 10^3/uL (0.0-0.6); ABSOLUTE MONOCYTES (AUTO) 0.6 10^3/uL (0.1-1.4); ABSOLUTE NEUT (AUTO) 5.8 10^3/uL (1.7-8.2); BASOPHILS % (AUTO) 0.3 % (0-2); EOSINOPHILS % (AUTO) 1.3 % (0-6); HEMATOCRIT 43.3 % (37.9-51.0); HEMOGLOBIN 14.7 g/dL (13.5-17.0); LYMPHOCYTES % (AUTO) 22.9 % (13-45); MEAN CORPUSCULAR HEMOGLOBIN 32.7 pg (27.0-33.4); MEAN CORPUSCULAR VOLUME 96 fl (80-97); MONOCYTES % (AUTO) 7.6 % (3-13); PLATELET COUNT 302 10^3/uL (150-450); RED CELL DISTRIBUTION WIDTH 15.5 % (11.5-14.0); SEGMENTED NEUTROPHILS % (AUTO) 67.9 % (42-78); TOTAL CELLS COUNTED % (AUTO) 100 %; WHITE BLOOD COUNT 8.5 10^3/uL (4.0-10.5)
[2019-02-18 14:50] LABS: ALKALINE PHOSPHATASE 40 U/L (38-126); ANION GAP 12 (5-19); ASPARTATE AMINO TRANSFERASE 32 U/L (17-59); BILIRUBIN,DIRECT 0.4 mg/dL (0.0-0.4); BILIRUBIN,TOTAL 0.5 mg/dL (0.2-1.3); BLOOD UREA NITROGEN 15 mg/dL (7-20); CALCIUM 10.4 mg/dL (8.4-10.2); CARBON DIOXIDE 29 mmol/L (22-30); CHLORIDE 98 mmol/L (98-107); GLUCOSE 106 mg/dL (75-110); POTASSIUM 3.8 mmol/L (3.6-5.0); TOTAL PROTEIN 8.8 g/dL (6.3-8.2)
[2019-02-18 14:51] LABS: ACETAMINOPHEN < 10 ug/mL (10-30); ALCOHOL < 10 mg/dL (NONE DETECTED); SALICYLATE < 1.0 mg/dL (2.0-20.0)
--- NOTE | 2019-02-18 14:52 | PSYCHOLOGICAL NOTE ---
Psych Note - Psych Note Date seen by psych provider: 02/18/19 Time seen by psych provider: 12:53 - [facility] Collateral at 1253. Evaluation from [id number]. Psych Note: Presenting Problem: With [facility] for SI. He stated he would take pills. He had been arguing with his family/parents that he is living with, often about what medications he is prescribed. Currently he denied SI. He admitted "I made stupid comments earlier I don't really feel that way." he stated he had been put on Bipolar medication, Latuda, at [facility] and is not Bipolar. He reported he is diagnosed with depression and major insomnia. he admitted to stress and problems with work, surgeries, having been out of work for a year and as a result not being able to take care of his 16 year old daughter. He mentioned "what would my daughter do if I killed myself plus I start work back up on the ." This i ndicated forward/future/goal oriented thinking. He stated he is prescribed Prozac 40MG by Dr. Jasiel Ferguson at [facility] and next appointment is 02/20/19 at 1000. he stated he could ask about increasing depression medication and adding something for sleep. He admitted he started drinking again the past couple days and it had been 20 years since he drank. He admitted to medical problems. He denied recent cocaine/crack use (has a hx of). He was last seen by [facility] 02/06/2018 for SI/SA (Cocaine/Crack) and discharged to [facility] for support and linkage. Patient was alert and oriented x5 with linear thinking, had good eye contact, conversation speech was within normal limits for rate/tone/prosody, no observed psychosis and able to engage in evaluation with dialogue conversation. He denied current SI/HI. Diagnosis: Depression Insomnia Hx of substance use (Cocaine, Alcohol) Impression/Plan: Patient is cleared from acute psychiatric services. Patient was alert and oriented x5 with linear thinking, had good eye contact, conversation speech was within normal limits for rate/tone/prosody, no observed psychosis and able to engage in evaluation with dialogue conversation. He denied current SI/HI. [facility], Kahlil, present before/during evaluation and involved for follow up. he has appointment with PCM at [facility] Saturday (02/20/19) st 1000 whe re he plans to address his medications. Consulted with Dr. Lorenzo regarding the management and care of patient. ED Physician in agreement with recommendations.
--- NOTE | 2019-02-18 15:29 | ER Document Report ---
ED General - General Chief Complaint: Psych Problem Stated Complaint: PSYCH Time Seen by Provider: 02/18/19 13:56 Primary Care Provider: [facility] [Provider Group] - 02/20/19 10:00 am [facility] [Outside] - Follow up as needed TRAVEL OUTSIDE OF THE [place] IN LAST 30 DAYS: No - HPI Notes: Patient is a 48-year-old male brought into the emergency department for wendie luation of suicidal ideation. Evidently he was upset earlier, expressed suicidal thoughts. He said he would overdose. The patient here states he did not really mean it. He was just upset. He is showing forward thinking, as he starts a new job. He wants to help take care of his 16-year-old daughter. The patient states he was just upset and he realizes the air of his waist. Otherwise medically he is doing well. He states he is eating and drinking normally. He has been having some difficulty sleeping but has an appointment with the [facility] on Saturday to further address that. Currently he denies any suicidal or homicidal ideation. No visual or auditory hallucination. - Related Data Allergies/Adverse Reactions: ketorolac [From Toradol] Allergy (Verified 02/18/19 12:51) morphine Allergy (Verified 02/18/19 12:51) permethrin Allergy (Verified 02/18/19 12:51) Past Medical History - General Information source: Patient - Social History Smoking Status: Current Every Day Smoker Chew tobacco use (# tins/day): No Frequency of alcohol use: Social Family History: CAD, CVA, DM, Hyperlipidemia, Hypertension, Malignancy Patient has suicidal ideation: Yes Patient has homicidal ideation: No - Past Medical History Cardiac Medical History: Reports: Hx Hypertension, Hx Peripheral Vascular Disease Denies: Hx Heart Attack Pulmonary Medical History: Reports: Hx Bronchitis, Hx COPD Neurological Medical History: Reports: Hx Migraine, Hx Seizures Renal/ Medical History: Denies: Hx Peritoneal Dialysis Musculoskeletal Medical History: Denies Hx Arthritis, Reports Hx Musculoskeletal Trauma - right hand Psychiatric Medical History: Reports: Hx Depression Traumatic Medical History: Reports: Hx Fractures - right hand Infectious Medical History: Reports: Hx C-Diff Past Surgical History: Reports: Hx Cardiac Surgery - AAA repair, Hx Orthopedic Surgery - Right hand - Immunizations Immunizations up to date: Yes Hx Diphtheria, Pertussis, Tetanus Vaccination: Yes - 2014 Review of Systems - Review of Systems Constitutional: No symptoms reported EENT: No symptoms reported Cardiovascular: No symptoms reported Respiratory: No symptoms reported Gastrointestinal: No symptoms reported Genitourinary: No symptoms reported Musculoskeletal: No symptoms reported Skin: No symptoms reported Neurological/Psychological: See HPI Physical Exam - Vital signs Vitals: Temp Pulse Resp BP Pulse Ox 98.0 F 61 20 156/90 H 98 02/18/19 12:59 02/18/19 12:59 02/18/19 12:59 02/18/19 12:59 02/18/19 12:59 - Notes Notes: This is a pleasant 48-year-old male who appears his stated age, no acute distress. Is cooperative with examiner, makes good eye contact. Vital signs reviewed, please refer to chart. Head is normocephalic, atraumatic. Pupils equal round, reactive to light. Neck is supple without meningismus. Heart is regular rate and rhythm. Lungs are clear to auscultation bilaterally. Abdomen is soft, nontender, normoactive bowel sounds throughout. Extremities without cyanosis, clubbing. Posterior calves are nontender. Peripheral pulses are equal. Skin is warm and dry. Patient is awake, alert, neurological exam is nonfocal. Course - Re-evaluation Re-evalutation: 02/18/19 15:28 Patient presents emergency department for evaluation. His psych eval is consistent with his reports. I do not believe this gentleman is actively shila cidal at this time. He continues with counseling and medical care for his depression. He has been avoiding drugs. No bad discharge the patient home. He is to return to the ED with worsening. - Vital Signs Vital signs: Temp Pulse Resp BP Pulse Ox 98.0 F 61 20 156/90 H 98 02/18/19 12:59 02/18/19 12:59 02/18/19 12:59 02/18/19 12:59 02/18/19 12:59 - Laboratory Result Diagrams: 02/18/19 14:02 02/18/19 14:02 Laboratory results interpreted by me: 02/18/19 02/18/19 14:02 14:02 RDW 15.5 H Calcium 10.4 H Total Protein 8.8 H Salicylates < 1.0 L Acetaminophen < 10 L Discharge - Discharge Clinical Impression: Suicidal ideation, History of depression, Alcohol use Condition: Stable Disposition: HOME, SELF-CARE Additional Instructions: You have been evaluated by both medical and behavioral health providers while in the emergency department. You have been cleared from both acute medical and psychiatric services. You mentioned drinking alcohol the past few days. It is a depressant and should be avoided. Depression tends to wax and wane. Make sure you keep your provider aware of times it happens and what your specific symptoms are. Go to your scheduled appointment at [facility] 02/20/19 and utilize [facility] for linkage and support. DEPRESSION: Your evaluation reveals that you have mental depression. While symptoms may be vague, they often include disturbance of sleep, fatigue, loss of appetite, and general loss of interest in life. While depression may be a side effect of drugs, or a reaction to a major change in your life, many cases have no known cause. If depression is acute, and related to a major loss in your life, you can expect it to clear completely with time. If you have been depressed a long time, are prone to repeated bouts of depression or low mood, or have been thinking of suicide, get help. Depression can be treated with anti-depressant medication and counselling. Long-term depression will often take a few weeks to clear, even with appropriate medication. Follow-up care is important. SUICIDAL IDEATION: Suicidal ideation is a common medical term for thoughts about suicide, which may be as detailed as a formulated plan, without the suicidal act itself. Although most people who undergo suicidal ideation do not commit suicide, some go on to make suicide attempts. The range of suicidal ideation varies greatly from fleeting to detailed planning, role playing, and unsuccessful attempts. While thoughts about suicide are common, most people do not carry out serious actions to commit suicide. Based upon your evaluation and discussion with you, we do not believe you are currently at risk to act upon your thoughts of suicide. You have agreed to return to the Emergency Department, at any time, if you feel inclined to act upon your suicidal thoughts. ACUTE ALCOHOL ABUSE: You can from drinking a large amount of alcohol rapidly! Further, there's the risk of falls, traffic accidents, and fights. A high portion (about 50 percent) of the serious injuries seen in hospital emergency rooms are caused by alcohol. Alcohol overdosage is usually due to an underlying emotional or psychiatric problem. You may benefit from counselling. If "binge" drinking is an ongoing problem for you, or if you drink ANY AMOUNT of alcohol EVERY day, you most likely have a tendency to alcoholism. You should avoid alcohol totally. We can refer you for treatment. Persons with alcohol problems are often also prone to other addictions -- you should discuss any use of medications or drugs with the doctor. You should be watched at home for the next several hours by someone who has not been drinking. Get extra fluids for the next 24 hours. Call the doctor if there is repeated vomiting, increasing headache, decreasing level of alertness, or any other worsening. FOLLOW-UP CARE: You have been instructed to continue your prescribed Prozac of 40MG daily. You should abstain from alcohol and other drugs. Alcohol is a depressant, results in inhibitions and alters cognition. You are encouraged attend your appointment 02/20/19 at 1000 at [facility] for medication management. [facility] is involved for wrap around and linkage of needed. Utilize them as you need and request services. If you experience worsening or a significant change in your symptoms, notify the physician immediately, utilize mobile crisis or return to the Emergency Department at any time for re- evaluation. Referrals: [facility] [Provider Group] - 02/20/19 10:00 am [facility] [Outside] - Follow up as needed
== END 2019-02-18 15:45 | disposition home or self-care (01) ==
LOC: ER 12:47
DX: R45.851 Suicidal ideations (principal); F32.9 Major depressive disorder, single episode, unspecified; F17.200 Nicotine dependence, unspecified, uncomplicated; I25.10 Atherosclerotic heart disease of native coronary artery without angina pectoris; I10 Essential (primary) hypertension; J44.9 Chronic obstructive pulmonary disease, unspecified; Z88.8 Allergy status to other drugs, medicaments and biological substances; Z88.5 Allergy status to narcotic agent
CPT/HCPCS: 36415; 80053; 80307; 85025; 99285

== ENCOUNTER 2019-06-13 13:00 | Emergency (ER) | payer SELFPAY ==
--- NOTE | 2019-06-13 13:25 | ER Document Report ---
ED Medical Screen (RME) - General Chief Complaint: Post Surgical Pain Stated Complaint: POST SURGICAL PAIN Time Seen by Provider: 06/13/19 13:19 Primary Care Provider: NAOMIE CASTANO FNP-C [Primary Care Provider] - Follow up as needed Mode of Arrival: Ambulatory Information source: Patient Notes: 48-year-old male with recent history of renal stents placement in [place] by Dr. Nath and infection presents emergency department with pain to the wound site and decreased urinary output. Reports he had the stent placed prior to [place] and they also had to place a drain. He reports this past week he was working on the floors and started having more pain drainage redness around the site. Denies fever and vomiting. I have greeted and performed a rapid initial assessment of this patient. A comprehensive ED assessment and evaluation of the patient, analysis of test results and completion of the medical decision making process will be conducted by additional ED providers. Dictation of this chart was performed using voice recognition software; therefore, there may be some unintended grammatical errors. TRAVEL OUTSIDE OF THE [place] IN LAST 30 DAYS: No - HPI Onset: Other - Related Data Allergies/Adverse Reactions: ketorolac [From Toradol] Allergy (Verified 06/13/19 13:19) morphine Allergy (Verified 06/13/19 13:19) permethrin Allergy (Verified 06/13/19 13:19) Past Medical History - Social History Family history: None - Past Medical History Cardiac Medical History: Reports: Hx Hypertension, Hx Peripheral Vascular Di sease Denies: Hx Heart Attack Pulmonary Medical History: Reports: Hx Bronchitis, Hx COPD Neurological Medical History: Reports: Hx Migraine, Hx Seizures Renal/ Medical History: Denies: Hx Peritoneal Dialysis Musculoskeltal Medical History: Denies Hx Arthritis, Reports Hx Musculoskeletal Trauma - right hand Psychiatric Medical History: Reports: Hx Bipolar Disorder, Hx Depression Traumatic Medical History: Reports: Hx Fractures - right hand Infectious Medical History: Reports: Hx C-Diff Past Surgical History: Reports: Hx Cardiac Surgery - AAA repair, Hx Orthopedic Surgery - Right hand - Immunizations Immunizations up to date: Yes Hx Diphtheria, Pertussis, Tetanus Vaccination: Yes - 2014 Physical Exam - Vital signs Vitals: Temp Pulse Resp BP Pulse Ox 97.9 F 77 18 185/91 H 100 06/13/19 13:05 06/13/19 13:05 06/13/19 13:05 06/13/19 13:05 06/13/19 13:05 Course - Vital Signs Vital signs: Temp Pulse Resp BP Pulse Ox 97.9 F 77 18 185/91 H 100 06/13/19 13:05 06/13/19 13:05 06/13/19 13:05 06/13/19 13:05 06/13/19 13:05 Doctor's Discharge - Discharge Referrals: NAOMIE CASTANO, WAREHOUSE ADMINISTRATIVE ASSISTANT-C [Primary Care Provider] - Follow up as needed
[2019-06-13 13:36] VITALS: BP 180/97
[2019-06-13 14:20] LABS: ABSOLUTE LYMPHOCYTES (AUTO) 2.1 10^3/uL (0.5-4.7); ABSOLUTE MONOCYTES (AUTO) 0.6 10^3/uL (0.1-1.4); ABSOLUTE NEUT (AUTO) 6.8 10^3/uL (1.7-8.2); BASOPHILS % (AUTO) 0.3 % (0-2); EOSINOPHILS % (AUTO) 0.5 % (0-6); HEMOGLOBIN 15.8 g/dL (13.5-17.0); LYMPHOCYTES % (AUTO) 22.2 % (13-45); MEAN CORPUSCULAR HEMOGLOBIN 30.9 pg (27.0-33.4); MEAN CORPUSCULAR HGB CONC 34.4 g/dL (32.0-36.0); MEAN CORPUSCULAR VOLUME 90 fl (80-97); MONOCYTES % (AUTO) 6.4 % (3-13); PLATELET COUNT 244 10^3/uL (150-450); RED BLOOD COUNT 5.13 10^6/uL (4.35-5.55); RED CELL DISTRIBUTION WIDTH 16.3 % (11.5-14.0); SEGMENTED NEUTROPHILS % (AUTO) 70.6 % (42-78); TOTAL CELLS COUNTED % (AUTO) 100 %; WHITE BLOOD COUNT 9.7 10^3/uL (4.0-10.5)
[2019-06-13 14:31] LABS: APPEARANCE,URINE CLEAR; BILIRUBIN,URINE NEGATIVE (NEGATIVE); COLOR,URINE YELLOW; GLUCOSE, URINE NEGATIVE (NEGATIVE); KETONES,URINE NEGATIVE (NEGATIVE); LEUKOCYTE ESTERASE,URINE NEGATIVE (NEGATIVE); NITRITE,URINE NEGATIVE (NEGATIVE); PROTEIN,URINE NEGATIVE (NEGATIVE); URINE SPECIFIC GRAVITY 1.011; UROBILINOGEN,URINE NEGATIVE mg/dL (<2.0)
[2019-06-13 14:36] LABS: ALBUMIN 5.4 g/dL (3.5-5.0); ALKALINE PHOSPHATASE 65 U/L (38-126); ANION GAP 17 (5-19); ASPARTATE AMINO TRANSFERASE 33 U/L (17-59); BILIRUBIN,DIRECT 0.2 mg/dL (0.0-0.4); BILIRUBIN,TOTAL 0.5 mg/dL (0.2-1.3); BLOOD UREA NITROGEN 22 mg/dL (7-20); CALCIUM 10.5 mg/dL (8.4-10.2); CARBON DIOXIDE 28 mmol/L (22-30); CHLORIDE 97 mmol/L (98-107); GLUCOSE 107 mg/dL (75-110); POTASSIUM 4.2 mmol/L (3.6-5.0); TOTAL PROTEIN 9.9 g/dL (6.3-8.2)
--- NOTE | 2019-06-13 20:13 | ER Document Report ---
Entered by ERWIN BLANKENSHIP SCRIBE 06/13/192002 Acting as scribe for:NIKOS VILLEGAS IV, MD Doctor's Note Notes: 06/13/19 19:50 Just picked up the patient's chart, went in to assess the patient and was told by nursing staff that he had just walked out of his room, stating he was leaving. I personally performed the services described in the documentation, reviewed and edited the documentation which was dictated to the scribe in my presence, and it accurately records my words and actions.
== END 2019-06-13 19:40 | disposition left against medical advice (07) ==
LOC: ER 13:00
DX: G89.18 Other acute postprocedural pain (principal); I10 Essential (primary) hypertension; J44.9 Chronic obstructive pulmonary disease, unspecified; Z96.0 Presence of urogenital implants; Z88.8 Allergy status to other drugs, medicaments and biological substances; Z88.6 Allergy status to analgesic agent; Z88.5 Allergy status to narcotic agent; Z53.20 Procedure and treatment not carried out because of patient's decision for unspecified reasons
CPT/HCPCS: 36415; 80053; 81001; 85025; 99281

== ENCOUNTER 2019-07-15 10:07 | Emergency (ER) | payer SELFPAY ==
[2019-07-15] MEDS ORDERED: OXYCODONE-ACETAMINOPHEN 5-325 MG TABLET PO ONE (10:42)
--- NOTE | 2019-07-15 10:44 | ER Document Report ---
ED Medical Screen (RME) - General Chief Complaint: Flank Pain Stated Complaint: LOWER BACK/LEG PAIN - RIGHT - FEET TINGLING Time Seen by Provider: 07/15/19 10:37 Primary Care Provider: NAOMIE CASTANO FNP-C [Primary Care Provider] - Follow up as needed Mode of Arrival: Ambulatory Information source: Patient Notes: Patient presents complaining of right flank pain for the past 5 days with some dysuria. Patient is concerned he may be having problems with his kidney. Patient also reports 5-day history of erythema to the left proximal anterior thigh area that has had some drainage. Patient reports previous history of vascular surgery that required stenting to the left groin. Patient states this area has become infected and has required multiple surgeries. I have greeted and performed a rapid initial assessment of this patient. A comprehensive ED assessment and evaluation of the patient, analysis of test results and completion of the medical decision making process will be conducted by additional ED providers. TRAVEL OUTSIDE OF THE [place] IN LAST 30 DAYS: No - Related Data Allergies/Adverse Reactions: ketorolac [From Toradol] Allergy (Verified 07/15/19 10:36) morphine Allergy (Verified 07/15/19 10:36) permethrin Allergy (Verified 07/15/19 10:36) Past Medical History - Social History Family history: None - Past Medical History Cardiac Medical History: Reports: Hx Hypertension, Hx Peripheral Vascular Disease Denies: Hx Heart Attack Pulmonary Medical History: Reports: Hx Bronchitis, Hx COPD Neurological Medical History: Reports: Hx Migraine, Hx Seizures Renal/ Medical History: Denies: Hx Peritoneal Dialysis Musculoskeltal Medical History: Denies Hx Arthritis, Reports Hx Musculoskeletal Trauma - right hand Psychiatric Medical History: Reports: Hx Bipolar Disorder, Hx Depression Traumatic Medical History: Reports: Hx Fractures - right hand Infectious Medical History: Reports: Hx C-Diff Past Surgical History: Reports: Hx Cardiac Surgery - AAA repair, Hx Orthopedic Surgery - Right hand - Immunizations Immunizations up to date: Yes Hx Diphtheria, Pertussis, Tetanus Vaccination: Yes - 2014 Physical Exam - Vital signs Vitals: Temp Pulse Resp BP Pulse Ox 98.0 F 85 16 123/79 96 07/15/19 10:21 07/15/19 10:21 07/15/19 10:21 07/15/19 10:21 07/15/19 10:21 - General General appearance: Appears well, Alert Notes: Right flank tenderness Course - Vital Signs Vital signs: Temp Pulse Resp BP Pulse Ox 98.0 F 85 16 123/79 96 07/15/19 10:21 07/15/19 10:21 07/15/19 10:21 07/15/19 10:21 07/15/19 10:21 Doctor's Discharge - Discharge Referrals: NAOMIE CASTANO, ELECTRONICS ENGINEERING TECHNOLOGIST-C [Primary Care Provider] - Follow up as needed
[2019-07-15 11:09] LABS: ABSOLUTE BASOPHILS # (AUTO) 0.1 10^3/uL (0.0-0.2); ABSOLUTE EOSINOPHILS # (AUTO) 0.2 10^3/uL (0.0-0.6); ABSOLUTE LYMPHOCYTES (AUTO) 2.4 10^3/uL (0.5-4.7); ABSOLUTE MONOCYTES (AUTO) 0.7 10^3/uL (0.1-1.4); ABSOLUTE NEUT (AUTO) 6.8 10^3/uL (1.7-8.2); BASOPHILS % (AUTO) 1.1 % (0-2); EOSINOPHILS % (AUTO) 1.8 % (0-6); HEMATOCRIT 44.3 % (37.9-51.0); HEMOGLOBIN 15.4 g/dL (13.5-17.0); LYMPHOCYTES % (AUTO) 23.3 % (13-45); MEAN CORPUSCULAR HGB CONC 34.7 g/dL (32.0-36.0); MEAN CORPUSCULAR VOLUME 89 fl (80-97); MONOCYTES % (AUTO) 6.7 % (3-13); PLATELET COUNT 259 10^3/uL (150-450); RED BLOOD COUNT 4.96 10^6/uL (4.35-5.55); RED CELL DISTRIBUTION WIDTH 16.6 % (11.5-14.0); SEGMENTED NEUTROPHILS % (AUTO) 67.1 % (42-78); TOTAL CELLS COUNTED % (AUTO) 100 %; WHITE BLOOD COUNT 10.2 10^3/uL (4.0-10.5)
[2019-07-15 11:15] LABS: APPEARANCE,URINE CLEAR; BILIRUBIN,URINE NEGATIVE (NEGATIVE); COLOR,URINE YELLOW; GLUCOSE, URINE NEGATIVE (NEGATIVE); KETONES,URINE TRACE mg/dL (NEGATIVE); LEUKOCYTE ESTERASE,URINE NEGATIVE (NEGATIVE); NITRITE,URINE NEGATIVE (NEGATIVE); PROTEIN,URINE 30 mg/dL (NEGATIVE); URINE SPECIFIC GRAVITY 1.018; UROBILINOGEN,URINE NEGATIVE mg/dL (<2.0)
[2019-07-15 11:26] LABS: ALBUMIN 4.8 g/dL (3.5-5.0); ALKALINE PHOSPHATASE 68 U/L (38-126); ANION GAP 13 (5-19); ASPARTATE AMINO TRANSFERASE 30 U/L (17-59); BILIRUBIN,DIRECT 0.3 mg/dL (0.0-0.4); BILIRUBIN,TOTAL 0.5 mg/dL (0.2-1.3); BLOOD UREA NITROGEN 19 mg/dL (7-20); CALCIUM 10.4 mg/dL (8.4-10.2); CARBON DIOXIDE 29 mmol/L (22-30); CHLORIDE 98 mmol/L (98-107); GLUCOSE 108 mg/dL (75-110); POTASSIUM 3.5 mmol/L (3.6-5.0); TOTAL PROTEIN 8.9 g/dL (6.3-8.2)
--- NOTE | 2019-07-15 13:32 | ER Document Report ---
ED General - General Chief Complaint: Flank Pain Stated Complaint: LOWER BACK/LEG PAIN - RIGHT - FEET TINGLING Time Seen by Provider: 07/15/19 10:37 Primary Care Provider: NAOMIE CASTANO FNP-C [NO LOCAL MD] - Follow up as needed Mode of Arrival: Ambulatory TRAVEL OUTSIDE OF THE [place] IN LAST 30 DAYS: No - HPI Notes: Patient is a 48-year-old male with a history of high blood pressure and peripheral artery disease who presents emergency department for evaluation of a few issues. First he has pain in his right lower back and flank. He states is worsened with movement as well as urination. He states he had a temperature of 99 8 last night. No gross hematuria. He states he has had some nausea and some loose stools. He denies any bowel or bladder incontinence, no saddle anesthesia, no focal weakness. He does have chronic numbness in his feet secondary to his peripheral artery disease. Patient also states he is concerned that the area of his stents might be infected. He had peripheral artery disease stents placed in [facility] in May. He states that there was an infection in the stents. He states that that pain in that area has started to burn more and he is concerned there is an infection. - Related Data Allergies/Adverse Reactions: ketorolac [From Toradol] Allergy (Verified 07/15/19 10:36) morphine Allergy (Verified 07/15/19 10:36) permethrin Allergy (Verified 07/15/19 10:36) Past Medical History - General Information source: Patient - Social History Smoking Status: Current Every Day Smoker Family History: CAD, CVA, DM, Hyperlipidemia, Hypertension, Malignancy Patient has suicidal ideation: No Patient has homicidal ideation: No - Past Medical History Cardiac Medical History: Reports: Hx Hypertension, Hx Peripheral Vascular Disease Denies: Hx Heart Attack Pulmonary Medical History: Reports: Hx Bronchitis, Hx COPD Denies: Hx Asthma Neurological Medical History: Reports: Hx Migraine, Hx Seizures Renal/ Medical History: Denies: Hx Peritoneal Dialysis Musculoskeletal Medical History: Denies Hx Arthritis, Reports Hx Musculoskeletal Trauma - right hand Psychiatric Medical History: Reports: Hx Bipolar Disorder, Hx Depression Traumatic Medical History: Reports: Hx Fractures - right hand Infectious Medical History: Reports: Hx C-Diff Past Surgical History: Reports: Hx Cardiac Surgery - AAA repair, Hx Orthopedic Surgery - Right hand, Hx Vascular Surgery - Immunizations Immunizations up to date: Yes Hx Diphtheria, Pertussis, Tetanus Vaccination: Yes - 2014 Review of Systems - Review of Systems Constitutional: See HPI EENT: No symptoms reported Cardiovascular: No symptoms reported Respiratory: No symptoms reported Gastrointestinal: See HPI Genitourinary: See HPI Musculoskeletal: See HPI Skin: See HPI Neurological/Psychological: No symptoms reported Physical Exam - Vital signs Vitals: Temp Pulse Resp BP Pulse Ox 98.0 F 85 16 123/79 96 07/15/19 10:21 07/15/19 10:21 07/15/19 10:21 07/15/19 10:21 07/15/19 10:21 - Notes Notes: Vital signs reviewed, please refer to chart. Head is normocephalic, atraumatic. Pupils equal round, reactive to light. Neck is supple without meningismus. Heart is regular rate and rhythm. Lungs are clear to auscultation bilaterally. Abdomen is soft, nontender, normoactive bowel sounds throughout. No CVA tenderness. Examination of the spine yields no midline tenderness or step-off. He has paraspinal musculature tenderness noted from approximately L3-L4 into the SI joint on the right. Negative piriformis tenderness. Negative straight leg raise on the right. Patellar and Achilles reflexes are 2+. Extremities without cyanosis, clubbing. Posterior calves are nontender. Peripheral pulses are equal. Skin is warm and dry. Examination of the left inguinal region yields an approximately 5 cm chronic appearing wound consistent with past arterial stent placement. There is no surrounding erythema or induration, no calor. Patient is awake, alert, neurological exam is nonfocal. Course - Re-evaluation Re-evalutation: 07/15/19 13:30 Patient presents emergency department for evaluation. He is right flank pain, but his laboratory investigations are unremarkable. He has no blood in his urine. His symptoms are most consistent with musculoskeletal pain. I will send him home with muscle relaxers and prescription strength anti-inflammatories. His wound on his left groin does not appear to be actively infected at this time. Findings were explained to the patient as well. He voiced understanding. Otherwise he is to continue wound care as previously instructed, continue his efforts to quit smoking, and return to the ED with worsening or new concerning symptoms of any sort. - Vital Signs Vital signs: Temp Pulse Resp BP Pulse Ox 98.0 F 85 16 123/79 96 07/15/19 10:21 07/15/19 10:21 07/15/19 10:21 07/15/19 10:21 07/15/19 10:21 - Laboratory Result Diagrams: 07/15/19 10:55 07/15/19 10:55 Laboratory results interpreted by me: 07/15/19 07/15/19 07/15/19 10:55 10:55 10:55 RDW 16.6 H Potassium 3.5 L Creatinine 1.36 H Est GFR (MDRD) Non-Af 55 L Calcium 10.4 H Total Protein 8.9 H Urine Protein 30 H Urine Ketones TRACE H Discharge - Discharge Clinical Impression: Right flank pain, Chronic pain of left inguinal region Condition: Stable Disposition: HOME, SELF-CARE Instructions: Flank Pain ([facility]), Low Back Pain ([facility]) Additional Instructions: Take medications as prescribed. Moist heat to the painful area in your right flank. Follow-up with your primary care provider this week, with your vascular surgeon as well. Return to the ED with worsening or new concerning symptoms of any sort. Referrals: NAOMIE CASTANO, ALEXANDRAC [NO LOCAL MD] - Follow up as needed
[2019-07-15 13:53] VITALS: BP 164/96
== END 2019-07-15 13:54 | disposition home or self-care (01) ==
LOC: ER 10:07
DX: G89.29 Other chronic pain (principal); R10.30 Lower abdominal pain, unspecified; M54.5 Low back pain; F17.210 Nicotine dependence, cigarettes, uncomplicated; I10 Essential (primary) hypertension; J44.9 Chronic obstructive pulmonary disease, unspecified; Z88.6 Allergy status to analgesic agent
CPT/HCPCS: 36415; 80053; 81001; 85025; 99284

== ENCOUNTER 2019-08-06 13:50 | Emergency (ER) | payer OTHER ==
[2019-08-06] MEDS ORDERED: NORMAL SALINE 1000 ML 1,000 ML IV ONE (14:38)
--- NOTE | 2019-08-06 14:40 | ER Document Report ---
ED Medical Screen (RME) - General Chief Complaint: Overdose Stated Complaint: POSSIBLE OVERDOSE/SYNCOPE Time Seen by Provider: 08/06/19 14:31 Notes: HPI: 49-year-old male brought by EMS for evaluation of a fall today. Patient states that he has a history of drug use has been using heroin crack cocaine and methamphetamine for the last 4 days. Patient states he does have a history of hypertension did take 3 different blood pressure medications this morning as well. States he has not been eating or drinking well this week as he has been using drugs all week. Patient complains of back pain. Denies chest pain. States that he does feel dizzy with standing. I have greeted and performed a rapid initial assessment of this patient. A comprehensive ED assessment and evaluation of the patient, analysis of test results and completion of the medical decision making process will be conducted by additional ED providers PHYSICAL EXAMINATION: GENERAL: Chronically ill-appearing, well-nourished and in moderate acute distress. HEAD: Atraumatic, normocephalic. EYES: sclera anicteric, conjunctiva are normal. ENT: Moist mucous membranes. NECK: Normal range of motion LUNGS: Normal work of breathing, lung sounds are clear to auscultation HEART: 2+ radial pulses bilaterally, mild tachycardia ABD: limited by positioning for exam in triage. EXTREMITIES: no pitting or edema. No cyanosis. NEUROLOGICAL: Moves all extremities spontaneously and on command. PSYCH: Normal mood, normal affect. SKIN: Warm, Dry, normal turgor, no rashes or lesions noted. Patient was noted to be moderately hypotensive. Discussed with Elli the charge nurse about placement, I will order IV fluids in an attempt to hydrate patient, TRAVEL OUTSIDE OF THE [place] IN LAST 30 DAYS: No - Related Data Allergies/Adverse Reactions: ketorolac [From Toradol] Allergy (Verified 08/06/19 14:30) morphine Allergy (Verified 08/06/19 14:30) permethrin Allergy (Verified 08/06/19 14:30) Home Medications: bp medication. metoprolol. lisinopril. clonidine Past Medical History - Social History Chew tobacco use (# tins/day): No Frequency of alcohol use: None Drug Abuse: Cocaine, Heroin, Marijuana, Methamphetamine Family history: None - Past Medical History Cardiac Medical History: Reports: Hx Hypertension, Hx Peripheral Vascular Disease Denies: Hx Heart Attack Pulmonary Medical History: Reports: Hx Bronchitis, Hx COPD Denies: Hx Asthma Neurological Medical History: Reports: Hx Migraine, Hx Seizures Renal/ Medical History: Denies: Hx Peritoneal Dialysis Musculoskeltal Medical History: Denies Hx Arthritis, Reports Hx Musculoskeletal Trauma - right hand Psychiatric Medical History: Reports: Hx Bipolar Disorder, Hx Depression Traumatic Medical History: Reports: Hx Fractures - right hand Infectious Medical History: Reports: Hx C-Diff Past Surgical History: Reports: Hx Cardiac Surgery - AAA repair, Hx Orthopedic Surgery - Right hand, Hx Vascular Surgery - Immunizations Immunizations up to date: Yes Hx Diphtheria, Pertussis, Tetanus Vaccination: Yes - 2014 Physical Exam - Vital signs Vitals: Temp Pulse Resp BP Pulse Ox 97.2 F 108 H 16 70/57 L 97 08/06/19 14:20 08/06/19 14:20 08/06/19 14:20 08/06/19 14:20 08/06/19 14:20 Course - Vital Signs Vital signs: Temp Pulse Resp BP Pulse Ox 97.2 F 108 H 16 70/57 L 97 08/06/19 14:20 08/06/19 14:20 08/06/19 14:20 08/06/19 14:20 08/06/19 14:20
[2019-08-06 16:30] LABS: ALBUMIN 5.1 g/dL (3.5-5.0); ALKALINE PHOSPHATASE 60 U/L (38-126); ANION GAP 14 (5-19); ASPARTATE AMINO TRANSFERASE 45 U/L (17-59); BILIRUBIN,DIRECT 0.5 mg/dL (0.0-0.4); BLOOD UREA NITROGEN 15 mg/dL (7-20); CALCIUM 9.5 mg/dL (8.4-10.2); CARBON DIOXIDE 25 mmol/L (22-30); CHLORIDE 101 mmol/L (98-107); GLUCOSE 102 mg/dL (75-110); POTASSIUM 4.4 mmol/L (3.6-5.0); TOTAL PROTEIN 9.3 g/dL (6.3-8.2)
[2019-08-06 16:32] LABS: ACETAMINOPHEN < 10 ug/mL (10-30); ALCOHOL < 10 mg/dL (NONE DETECTED); SALICYLATE < 1.0 mg/dL (2.0-20.0)
[2019-08-06 17:00] LABS: ABSOLUTE BASOPHILS # (AUTO) 0.1 10^3/uL (0.0-0.2); ABSOLUTE EOSINOPHILS # (AUTO) 0.2 10^3/uL (0.0-0.6); ABSOLUTE LYMPHOCYTES (AUTO) 2.4 10^3/uL (0.5-4.7); ABSOLUTE MONOCYTES (AUTO) 0.6 10^3/uL (0.1-1.4); ABSOLUTE NEUT (AUTO) 4.3 10^3/uL (1.7-8.2); BASOPHILS % (AUTO) 1.4 % (0-2); EOSINOPHILS % (AUTO) 2.4 % (0-6); HEMATOCRIT 40.3 % (37.9-51.0); HEMOGLOBIN 13.8 g/dL (13.5-17.0); LYMPHOCYTES % (AUTO) 31.1 % (13-45); MEAN CORPUSCULAR HEMOGLOBIN 31.4 pg (27.0-33.4); MEAN CORPUSCULAR HGB CONC 34.2 g/dL (32.0-36.0); MEAN CORPUSCULAR VOLUME 92 fl (80-97); MONOCYTES % (AUTO) 8.4 % (3-13); PLATELET COUNT 161 10^3/uL (150-450); RED BLOOD COUNT 4.38 10^6/uL (4.35-5.55); RED CELL DISTRIBUTION WIDTH 16.8 % (11.5-14.0); SEGMENTED NEUTROPHILS % (AUTO) 56.7 % (42-78); TOTAL CELLS COUNTED % (AUTO) 100 %; WHITE BLOOD COUNT 7.6 10^3/uL (4.0-10.5)
[2019-08-06] MEDS ORDERED: DEXAMETHASONE SOD PHOS INJ 10 MG/1 ML VIAL IV ONE (18:59)
[2019-08-06] MEDS ORDERED: LORAZEPAM INJ 2 MG/1 ML VIAL IV ONE (19:00)
[2019-08-06] MEDS ORDERED: HYDROMORPHONE HCL INJ/PF 2 MG/ML AMPULE IV ONE (19:01)
--- NOTE | 2019-08-06 19:34 | EKG REPORT ---
SEVERITY:- ABNORMAL ECG - SINUS RHYTHM PROLONGED QT INTERVAL : Confirmed by: Jennifer Salinas MD 06-Aug-2019 19:34:28
[2019-08-06 19:50] LABS: APPEARANCE,URINE CLOUDY; BILIRUBIN,URINE NEGATIVE (NEGATIVE); GLUCOSE, URINE NEGATIVE (NEGATIVE); KETONES,URINE TRACE mg/dL (NEGATIVE); LEUKOCYTE ESTERASE,URINE NEGATIVE (NEGATIVE); NITRITE,URINE NEGATIVE (NEGATIVE); PROTEIN,URINE >=500 mg/dL (NEGATIVE); UROBILINOGEN,URINE NEGATIVE mg/dL (<2.0)
[2019-08-06 19:55] LABS: COLOR,URINE YELLOW
[2019-08-06 20:10] LABS: URINE BARBITURATES SCREEN NEGATIVE; URINE BENZODIAZEPINES SCREEN NEGATIVE; URINE METHADONE SCREEN NEGATIVE; URINE PHENCYCLIDINE SCREEN NEGATIVE
[2019-08-06 20:19] LABS: URINE COCAINE SCREEN UNCONFIRMED POSITIVE
[2019-08-06 20:20] LABS: URINE MARIJUANA (THC) SCREEN UNCONFIRMED POSITIVE
--- NOTE | 2019-08-06 20:50 | RADIOLOGY REPORT (SQ) ---
EXAM EXAM DESCRIPTION: CT scan of the thoracic spine without contrast CLINICAL HISTORY: 49 years Male; injury TECHNIQUE: Noncontrast thoracic spine CT with sagittal and coronal reconstructions. All CT scans at this facility use dose modulation, iterative reconstruction, and/or weight based dosing when appropriate to reduce radiation dose to as low as reasonably achievable. COMPARISON: None. FINDINGS: Visualized portion of the posterior chest and retroperitoneum demonstrate probable right renal cyst. Scattered vascular calcifications. Minimal dependent density in the lung bases. Alignment of the thoracic spine is anatomic. There is mild multilevel vacuum disks and endplate spondylosis. No acute fracture is seen. No osseous narrowing of the neural foramen or central spinal canal. No paraspinal abnormality. IMPRESSION: 1. No fracture. 2. Minimal multilevel degenerative disc disease of the thoracic spine. No osseous narrowing of the neural foramen or central spinal canal.
--- NOTE | 2019-08-06 20:55 | PSYCHOLOGICAL NOTE ---
Psych Note - Psych Note Date seen by psych provider: 08/06/19 Time seen by psych provider: 16:55 Psych Note: Patient is a 49-year-old male who presents to ED via POV after he passed out at an appointment with [facility]. Patient has a history with the behavioral health team for suicidal ideation and substance abuse. Patient reports use of heroin, crack cocaine, and meth for 4 days. Patient states "I am never going to do it again." Patient describes physiological tyson ctions such as increased heart rate that he never wants to experience again. Patient states he only did the drugs because "there was 2 girls there." Patient reports being housing insecure. Patient dorsal suicidal ideation with no plan or intent. Patient became upset when he asked about discharge and clinician discussed endorsement of suicidal ideation. Clinician provided psychoeducation regarding heroin, crack cocaine, and meth and effects on the body. Discussed substance abuse treatment with patient. Patient contacted [facility] for bed availability. Clinician was informed to let patient know to come to [facility] after discharge. Clinician informed the patient to go directly to [facility] after discharge to which patient reported he was not going to [facility]. Per verbal nurse nurses report, patient was irritable and demanded discharge. Patient is alert and oriented to person, place, and circumstance. Mood is normal with congruent affect. Patient endorses suicidal ideation with no plan or intent. Patient homicidal ideations. Delusions are absent and behavior is congruent with an intact reality based presentation (i.e., organized and linear through processes). There is no observed behavior that suggests patient is responding to internal stimuli. Patient is able to engage in organized, rational thought processes. Patient is able to express needs and wants in a logical manner as evidenced by his ability to articulate the negative effects the substances have on his heart and other parts of his body. Patient denies current auditory and visual hallucinations. Eye contact is appropriate. Conversational speech is within normal rate, tone, and prosody. Intellectual ability appears to be within average range. Attention and concentration are good. Insight, judgment and impulse control are currently poor. Impression/Plan: Patient is cleared from acute psychiatric services. Patient presents to ED after he passed out at [facility]. She has a history of substance abuse and endorsement of suicidal ideation. Patient recently engaged in heroin, crack cocaine, and meth use for 4 days. Patient expressed a desire "not to do it again" due to uncomfortable physiological reactions to substances as described as increased heart rate. Patient was provided a substance abuse resource list. Clinician contacted [facility] for bed availability and was informed there was availability. Patient reported he would not go to [facility]. Patient was encouraged to contact [facility], if immediate assistance is needed. Dr. Lorenzo was consulted on the care and management of this patient; attending physician is in agreement with recommendations and disposition.
[2019-08-06 20:57] VITALS: BP 173/97
--- NOTE | 2019-08-06 21:14 | ER Document Report ---
ED General - General Chief Complaint: Overdose Stated Complaint: POSSIBLE OVERDOSE/SYNCOPE Time Seen by Provider: 08/06/19 14:31 Notes: 49-year-old male presents to the emergency department with history of a fall. Apparently took 0.3 mg of clonidine when he developed a headache, he thought that his blood pressure was elevated. He then had a syncopal episode falling and had no associated injury. He has been abusing crack cocaine and metha mphetamine for the past 24 hours. TRAVEL OUTSIDE OF THE [place] IN LAST 30 DAYS: No - Related Data Allergies/Adverse Reactions: ketorolac [From Toradol] Allergy (Verified 08/06/19 14:30) morphine Allergy (Verified 08/06/19 14:30) permethrin Allergy (Verified 08/06/19 14:30) Home Medications: bp medication. metoprolol. lisinopril. clonidine Past Medical History - Social History Smoking Status: Current Every Day Smoker Chew tobacco use (# tins/day): No Frequency of alcohol use: None Drug Abuse: Cocaine, Heroin, Marijuana, Methamphetamine Family History: CAD, CVA, DM, Hyperlipidemia, Hypertension, Malignancy Patient has suicidal ideation: Yes Patient has homicidal ideation: No - Past Medical History Cardiac Medical History: Reports: Hx Hypertension, Hx Peripheral Vascular Disease Denies: Hx Heart Attack Pulmonary Medical History: Reports: Hx Bronchitis, Hx COPD Denies: Hx Asthma Neurological Medical History: Reports: Hx Migraine, Hx Seizures Renal/ Medical History: Denies: Hx Peritoneal Dialysis Musculoskeletal Medical History: Denies Hx Arthritis, Reports Hx Musculoskeletal Trauma - right hand Psychiatric Medical History: Reports: Hx Bipolar Disorder, Hx Depression Traumatic Medical History: Reports: Hx Fractures - right hand Infectious Medical History: Reports: Hx C-Diff Past Surgical History: Reports: Hx Cardiac Surgery - AAA repair, Hx Orthopedic Surgery - Right hand, Hx Vascular Surgery - Immunizations Immunizations up to date: Yes Hx Diphtheria, Pertussis, Tetanus Vaccination: Yes - 2014 Review of Systems - Review of Systems Notes: Constitutional: Negative for fever. HENT: Negative for sore throat. Eyes: Negative for visual changes. Cardiovascular: Negative for chest pain. Respiratory: Negative for shortness of breath. Gastrointestinal: Negative for abdominal pain, vomiting or diarrhea. Genitourinary: Negative for dysuria. Musculoskeletal: + Back pain. Skin: Negative for rash. Neurological: Negative for headaches, weakness or numbness. 10 point ROS negative except as marked above and in HPI. Physical Exam - Vital signs Vitals: Temp Pulse Resp BP Pulse Ox 97.2 F 108 H 16 70/57 L 97 08/06/19 14:20 08/06/19 14:20 08/06/19 14:20 08/06/19 14:20 08/06/19 14:20 - Notes Notes: PHYSICAL EXAMINATION: Physical Exam: General: Disheveled 49-year-old man in no acute distress HEENT: NC/AT, pupils equal round and reactive to light, MM moist,nares clear, oropharynx clear Neck: supple, no adenopathy, no masses. Lungs: clear, no wheezing, no rales no rhonchi CVS: Regular rate and rhythm, no murmur, gallop or rub Abdomen: Soft, active nontender, no masses, no hepatosplenomegaly Ext: No edema clubbing or cyanosis. Back: + Mid thoracic back pain/tenderness Neuro: Alert and responsive, moving all 4 extremities on command, cranial nerves intact. Skin: Intact no open lesions, no rash PSYCH: Normal mood, normal affect. Course - Re-evaluation Re-evalutation: 08/06/19 21:16 Patient had an evaluation done in the emergency department for the hypertension and polysubstance abuse. His troponin was slightly elevated on the initial lab draw. Repeat reveals a decreasing troponin. Patient complaining of back pain stating that he has herniated thoracic disks and needs to have surgery. He thinks he may have injured his back when he fell. Because of that complaint a CT scan of the thoracic spine was performed. No acute fracture was seen on the x-ray. Patient received medication for pain and associated muscle spasm, he states that he is more comfortable and is now ready to go. Patient is discharged from the emergency department to follow-up with outpatient primary physicians. I did discuss a concern regarding his polysubstance abuse. The patient states that he does not want any help at this time. - Vital Signs Vital signs: Temp Pulse Resp BP Pulse Ox 97.6 F 86 20 173/97 H 100 08/06/19 20:55 08/06/19 20:55 08/06/19 20:55 08/06/19 20:55 08/06/19 20:55 - Laboratory Result Diagrams: 08/06/19 16:52 08/06/19 15:54 Laboratory results interpreted by me: 08/06/19 08/06/19 08/06/19 15:54 16:52 19:15 RDW 16.8 H Creatinine 1.69 H Est GFR ( Amer) 52 L Est GFR (MDRD) Non-Af 43 L Direct Bilirubin 0.5 H Total Protein 9.3 H Albumin 5.1 H Urine Protein >=500 H Urine Ketones TRACE H Salicylates < 1.0 L Acetaminophen < 10 L 08/06/19 21:18 I have reviewed laboratory data and used this information for the treatment decisions regarding the patient. - Diagnostic Test Radiology reviewed: Image reviewed, Reports reviewed - CT T-spine: no acute fracture Discharge - Discharge Clinical Impression: Polysubstance abuse, Cocaine abuse, Methamphetamine abuse Hypotension Qualifiers: Hypotension type: hypotension due to drug Qualified Code(s): I95.2 - Hypotension due to drugs Condition: Good Disposition: HOME, SELF-CARE Additional Instructions: You were diagnosed with a low blood pressure secondary to using too much blood pressure medication. Please take your medication as previously prescribed and do not mix your medications with illicit drugs. Follow-up with your primary care doctor you may return to the emergency department if needed
== END 2019-08-06 21:15 | disposition home or self-care (01) ==
LOC: ER 13:50
DX: I95.2 Hypotension due to drugs (principal); T50.905A Adverse effect of unspecified drugs, medicaments and biological substances, initial encounter; F14.10 Cocaine abuse, uncomplicated; F15.10 Other stimulant abuse, uncomplicated; F11.10 Opioid abuse, uncomplicated; F12.10 Cannabis abuse, uncomplicated; R45.851 Suicidal ideations; R55 Syncope and collapse; M62.838 Other muscle spasm; M54.6 Pain in thoracic spine; W19.XXXA Unspecified fall, initial encounter; Y93.89 Activity, other specified; Y92.538 Other ambulatory health services establishments as the place of occurrence of the external cause; F17.200 Nicotine dependence, unspecified, uncomplicated; I10 Essential (primary) hypertension; J44.9 Chronic obstructive pulmonary disease, unspecified; Z79.899 Other long term (current) drug therapy; Z88.8 Allergy status to other drugs, medicaments and biological substances; Z88.6 Allergy status to analgesic agent; Z88.5 Allergy status to narcotic agent
CPT/HCPCS: 93005; 99285; 96361; 96374; 96375; 36415; 80307 ×4; 85025; 80053; 81001; 84484; 72128; 93010; J1170; J2060; J7030; J1100

== ENCOUNTER 2019-08-07 15:06 | Emergency (ER) | payer OTHER ==
[2019-08-07] MEDS ORDERED: NORMAL SALINE 1000 ML 1,000 ML IV ONE (15:39)
[2019-08-07 15:54] VITALS: BP 86/50
[2019-08-07] MEDS ORDERED: ACETAMINOPHEN 325 MG TABLET PO ONE (16:30)
--- NOTE | 2019-08-07 16:45 | PSYCHOLOGICAL NOTE ---
Psych Note - Psych Note Date seen by psych provider: 08/07/19 Time seen by psych provider: 15:45 Psych Note: Reason for Consult: IVC Patient arrived under 24 hour petition for evaluation by Mobile nitro worker. The petitioner stated patient abuses several drugs to include cocaine, meth, heroin and marijuana daily. It continues to state that the patient is suicidal and reporting that he has several knives and was planning to slit his wrists. The patient was being very verbally aggressive to several workers at [facility] and they deemed him a danger to himself. Patient reported to [facility] ED attending nurse: His plan would be to "blow my brains out" or "take a bunch of pills." Behavioral health team spoke with mobile fabric worker; please see mental health note. Patient is very irritable with clinician and states that he has been suicidal all night and this morning. He reports that he woke up this morning crying and could not stop. Clinician reminded patient that he had been in [facility] facility since 5 the previous evening, that he spoke with this clinician first thing this morning and that he denied current suicidal ideation during his evaluation. Patient became extremely agitated and stated that he just came to get the medical records from his previous visit. When clinician again asked about suicidal ideation, the patient stated that he had been telling everyone that he had been suicidal "all night and all morning....it comes and goes." When clinician again asked why he did not disclose this during previous evaluation, the patient became angry and stated "I don't know, maybe I didn't hear you...she told me I had to say that in order to get in." Clinician attempted to clarify patient statement asking if the patient was coached into what needed to be said to get inpatient treatment; however, he would not clarify only reporting that [facility] is finding him inpatient treatment, and that he "is happy about it." Clinician spoke to mobile crisis supervisor ore dressing. He disclosed he personally opened the patient last Saturday and he denied suicidal ideation. He disclosed the patient wanted substance abuse assistance so they took him DRU. He stated the patient didn't meet criteria at DRU at which that point he reported SI. He was still denied admission to [facility] during that visit. He continued to disclose [facility] did not hear from him four days until 08/05/2019 at which that point the patient reported using multiple drugs. He stated the patient becomes very upset and says things in attempt to control situations. He confirms [facility] staff would not make any comments to fitness coach patients. The patient has been very difficult with [facility] and has been verbally aggressive with many of their staff however they will be happy to assist the patient in placement for [facility] in [place]. They request, with the consent of the patient, for Ekg and labs to be faxed to them so they can submit for voluntary placement. Clinician spoke with the patient again who provided verbal consent for his EKG and lab work to be faxed to [facility] so they continue with his placement. Clinician notes patient is much calmer and thanks clinician for "all the chris tance." He does engage appropriately stating that he thinks [facility] would be a very good placement for him. He admits to being a little nervous about going home and waiting for the bed as there is not a definite timeframe for a bed availability. He reports he has no concerns for returning home if the medical aspect of his pain is assessed and assisted before he leaves. Chart review conducted: Patient was just evaluated this morning by this clinician at 0855. During that evaluation he reported that he needed additional resources and asked for assistance in getting to the [place] and down in [place]. He reported that he wanted to go to [facility] [place] after he received detox. He states his long-term goal is drug and alcohol counselor. Patient reports that he feels that the medications are making him better in regards to his thoughts of suicidal ideation. Patient denied current suicidal ideation. Impression/Plan: Patient recommended for rescind of IVC and is cleared from acute psychiatric services. She has a well-documented history of disclosing suicidal ideation when angry and attempting to control a situation. Patient was noted to do this last Saturday when working with [facility] during his attempted inpatient treatment with [facility]. Clinician again notes patient voiced suicidal ideation today after discharge after being told he was being discharged from services and [facility] would no longer provide medication management to him. Clinician was notified patient became verbally aggressive with staff after seeing clinician the second time when he was denied pain medications. Attending medical staff wanted to verify if patient was going to be rescinded due to the patient wanting to sign out AMA. Dr. Lorenzo was consulted on the care and management of this patient; any physicians in agreement with recommendations and disposition.
--- NOTE | 2019-08-07 16:58 | ER Document Report ---
ED Psych Disorder / Suicide - General Chief Complaint: Psych Problem Stated Complaint: PSYCH Time Seen by Provider: 08/07/19 15:19 Mode of Arrival: Ambulatory Information source: Patient Notes: This 49-year-old man presents to the emergency department for follow-up of suicidal ideation. He has a history of polysubstance abuse, has been seen in the ER on 2 prior occasions. Apparently, requesting pain medications and positive for methamphetamine and cocaine. He apparently went to [facility] and was IVC sent to the emergency department for medical screening with the plan to place him in some form of rehab services. The patient complained that his legs would not move and he became shaky and had to be lifted and brought by vehicle. He also notes a syncopal episode which appears to be related to his use of the clonidine tablets 0.2 mg twice a day. TRAVEL OUTSIDE OF THE [place] IN LAST 30 DAYS: No - Related Data Allergies/Adverse Reactions: ketorolac [From Toradol] Allergy (Verified 08/07/19 00:38) morphine Allergy (Verified 08/07/19 00:38) permethrin Allergy (Verified 08/07/19 00:38) Past Medical History - Social History Smoking Status: Current Every Day Smoker Frequency of alcohol use: None Drug Abuse: Cocaine, Heroin, Marijuana, Methamphetamine, Prescription drugs Family History: CAD, CVA, DM, Hyperlipidemia, Hypertension, Malignancy Patient has suicidal ideation: Yes Patient has homicidal ideation: No - Past Medical History Cardiac Medical History: Reports: Hx Hypertension, Hx Peripheral Vascular Disease Denies: Hx Heart Attack Pulmonary Medical History: Reports: Hx Bronchitis, Hx COPD Denies: Hx Asthma Neurological Medical History: Reports: Hx Migraine, Hx Seizures Renal/ Medical History: Denies: Hx Peritoneal Dialysis Musculoskeletal Medical History: Denies Hx Arthritis, Reports Hx Musculoskeletal Trauma - right hand Psychiatric Medical History: Reports: Hx Bipolar Disorder, Hx Depression Traumatic Medical History: Reports: Hx Fractures - right hand Infectious Medical History: Reports: Hx C-Diff Past Surgical History: Reports: Hx Cardiac Surgery - AAA repair, Hx Orthopedic Surgery - Right hand, Hx Vascular Surgery - Immunizations Immunizations up to date: Yes Hx Diphtheria, Pertussis, Tetanus Vaccination: Yes - 2014 Review of Systems - Review of Systems Notes: Constitutional: Negative for fever. HENT: Negative for sore throat. Eyes: Negative for visual changes. Cardiovascular: Negative for chest pain. Respiratory: Negative for shortness of breath. Gastrointestinal: Negative for abdominal pain, vomiting or diarrhea. Genitourinary: Negative for dysuria. Musculoskeletal: + Pain in the lower extremities Skin: Negative for rash. Neurological: Negative for headaches, weakness or numbness. 10 point ROS negative except as marked above and in HPI. Physical Exam - Vital signs Vitals: Temp Pulse Resp BP Pulse Ox 97.3 F 73 18 86/50 L 98 08/07/19 15:08/07/19 15:08/07/19 15:08/07/19 15:08/07/19 15:07 - Notes Notes: PHYSICAL EXAMINATION: Physical Exam: General: Well-nourished well-developed uncooperative male requesting pain medications HEENT: NC/AT, pupils equal round and reactive to light, MM moist,nares clear, or opharynx clear Neck: supple, no adenopathy, no masses. Lungs: clear, no wheezing, no rales no rhonchi CVS: Regular rate and rhythm no murmur gallop or rub Abdomen: Soft active nontender, no masses, no hepatosplenomegaly Ext: No edema clubbing or cyanosis. Neuro: Alert and responsive, moving all 4 extremities on command, cranial nerves intact. Skin: Area of erythema and superficial epidermal breakdown in the left inguinal groin area. There is no open wound PSYCH: Alert responsive requesting pain medications and no visual/auditory hallucinations. Course - Re-evaluation Re-evalutation: 08/07/19 17:05 Patient is IVC was apparently reversed by behavioral health staff. Patient has stated that he did not want to have the labs drawn or IV fluids and refused all interventions. He became upset and stated he wanted to sign out AGAINST MEDICAL ADVICE. After attempts to arrange for him to be picked up by the patient eloped . - Vital Signs Vital signs: Temp Pulse Resp BP Pulse Ox 97.3 F 73 18 86/50 L 98 08/07/19 15:08/07/19 15:08/07/19 15:08/07/19 15:08/07/19 15:07 Discharge - Discharge Clinical Impression: Polysubstance abuse Hypotension Qualifiers: Hypotension type: hypotension due to drug Qualified Code(s): I95.2 - Hypotension due to drugs Condition: Fair Disposition: ELOPED
--- NOTE | 2019-08-07 21:59 | EKG REPORT ---
SEVERITY:- ABNORMAL ECG - SINUS RHYTHM PROLONGED QT INTERVAL : Confirmed by: Jennifer Salinas MD 07-Aug-2019 21:58:44
== END 2019-08-07 17:00 | disposition left against medical advice (07) ==
LOC: ER 15:06
DX: I95.2 Hypotension due to drugs (principal); F19.10 Other psychoactive substance abuse, uncomplicated; F17.200 Nicotine dependence, unspecified, uncomplicated; R45.851 Suicidal ideations; I10 Essential (primary) hypertension
CPT/HCPCS: 93005; 93010; 99281

== ENCOUNTER 2019-08-07 21:14 | Emergency (ER) | payer OTHER ==
--- NOTE | 2019-08-07 21:45 | ER Document Report ---
ED Medical Screen (RME) - General Chief Complaint: Passed Out Prior to Arrival Stated Complaint: NUMBNESS Time Seen by Provider: 08/07/19 21:37 Notes: 49-year-old male presents for numbness to his face and left upper body. Patient states he also got shaky while at [place]. Patient states he was seen earlier in the ER and did not have any work-up done. Review of records indicate that patient had lab work/work-up ordered however he refused. Patient states he has been abusing methamphetamine, crack cocaine for the past few days and has not slept in a couple days. Patient states he also has not eaten anything in the last couple days. Nontoxic, well-appearing. Patient is able to ambulate without difficulty. I have greeted and performed a rapid initial assessment of this patient. A comprehensive ED assessment and evaluation of the patient, analysis of test results and completion of the medical decision making process with be conducted by additional ED providers. TRAVEL OUTSIDE OF THE [place] IN LAST 30 DAYS: No - Related Data Allergies/Adverse Reactions: ketorolac [From Toradol] Allergy (Verified 08/07/19 00:38) morphine Allergy (Verified 08/07/19 00:38) permethrin Allergy (Verified 08/07/19 00:38) Home Medications: metoprolol, lisinopril, clonidine, prozac, lamictal, gabapentin, plavix(pt has quit taking this med) Past Medical History - Social History Frequency of alcohol use: None Drug Abuse: Cocaine, Marijuana, Methamphetamine Family history: None - Past Medical History Cardiac Medical History: Reports: Hx Hypertension, Hx Peripheral Vascular Disease Denies: Hx Heart Attack Pulmonary Medical History: Reports: Hx Bronchitis, Hx COPD Denies: Hx Asthma Neurological Medical History: Reports: Hx Migraine, Hx Seizures Renal/ Medical History: Denies: Hx Peritoneal Dialysis Musculoskeltal Medical History: Denies Hx Arthritis, Reports Hx Musculoskeletal Trauma - right hand Psychiatric Medical History: Reports: Hx Bipolar Disorder, Hx Depression Traumatic Medical History: Reports: Hx Fractures - right hand Infectious Medical History: Reports: Hx C-Diff Past Surgical History: Reports: Hx Cardiac Surgery - AAA repair, Hx Orthopedic Surgery - Right hand, Hx Vascular Surgery - Immunizations Immunizations up to date: Yes Hx Diphtheria, Pertussis, Tetanus Vaccination: Yes - 2014
[2019-08-07 22:38] VITALS: BP 140/90
[2019-08-07 22:50] LABS: ABSOLUTE EOSINOPHILS # (AUTO) 0.1 10^3/uL (0.0-0.6); ABSOLUTE LYMPHOCYTES (AUTO) 2.1 10^3/uL (0.5-4.7); ABSOLUTE MONOCYTES (AUTO) 0.9 10^3/uL (0.1-1.4); BASOPHILS % (AUTO) 0.2 % (0-2); EOSINOPHILS % (AUTO) 0.7 % (0-6); HEMATOCRIT 37.9 % (37.9-51.0); HEMOGLOBIN 12.9 g/dL (13.5-17.0); LYMPHOCYTES % (AUTO) 19.1 % (13-45); MEAN CORPUSCULAR HEMOGLOBIN 31.4 pg (27.0-33.4); MEAN CORPUSCULAR VOLUME 93 fl (80-97); MONOCYTES % (AUTO) 8.3 % (3-13); PLATELET COUNT 213 10^3/uL (150-450); RED CELL DISTRIBUTION WIDTH 16.8 % (11.5-14.0); SEGMENTED NEUTROPHILS % (AUTO) 71.7 % (42-78); TOTAL CELLS COUNTED % (AUTO) 100 %; WHITE BLOOD COUNT 11.2 10^3/uL (4.0-10.5)
[2019-08-07 23:08] LABS: ALKALINE PHOSPHATASE 64 U/L (38-126); ANION GAP 15 (5-19); ASPARTATE AMINO TRANSFERASE 39 U/L (17-59); BILIRUBIN,DIRECT 0.4 mg/dL (0.0-0.4); BILIRUBIN,TOTAL 0.5 mg/dL (0.2-1.3); BLOOD UREA NITROGEN 32 mg/dL (7-20); CALCIUM 9.5 mg/dL (8.4-10.2); CARBON DIOXIDE 26 mmol/L (22-30); CHLORIDE 100 mmol/L (98-107); GLUCOSE 99 mg/dL (75-110); POTASSIUM 3.8 mmol/L (3.6-5.0); TOTAL PROTEIN 8.6 g/dL (6.3-8.2)
[2019-08-07 23:09] LABS: ACETAMINOPHEN < 10 ug/mL (10-30); ALCOHOL < 10 mg/dL (NONE DETECTED); SALICYLATE < 1.0 mg/dL (2.0-20.0)
--- NOTE | 2019-08-08 21:18 | EKG REPORT ---
SEVERITY:- NORMAL ECG - SINUS RHYTHM : Confirmed by: Jennifer Salinas MD 08-Aug-2019 21:17:15
--- NOTE | 2019-08-10 02:58 | ER Document Report ---
Entered by ERWIN BLANKENSHIP SCRIBE 08/07/19 [id number] Acting as scribe for:NIKOS VILLEGAS IV, MD ED General - General Chief Complaint: Passed Out Prior to Arrival Stated Complaint: NUMBNESS Time Seen by Provider: 08/07/19 21:37 Primary Care Provider: SANDRA PARDO MD [Primary Care Provider] - Follow up as needed Mode of Arrival: Ambulatory Information source: [facility] Records Notes: This 49-year-old male patient presents today for the fourth time in less than 48 hours for complaints of "numbness of the face and left upper body" according to RME note. Upon entry into the room, the patient is sleeping comfortably and refuses to wake up. Patient is uncooperative so it is not possible to obtain any history. Upon review of [facility] records, the patient has been extremely manipulative the last few days in an attempt to get placement at inpatient rehab. 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 TRAVEL OUTSIDE OF THE [place] IN LAST 30 DAYS: No - Related Data Allergies/Adverse Reactions: ketorolac [From Toradol] Allergy (Verified 08/07/19 00:38) morphine Allergy (Verified 08/07/19 00:38) permethrin Allergy (Verified 08/07/19 00:38) Home Medications: metoprolol, lisinopril, clonidine, prozac, lamictal, gabapentin, plavix(pt has quit taking this med) Past Medical History - General Information source: [facility] Records - Social History Smoking Status: Current Every Day Smoker Frequency of alcohol use: None Drug Abuse: Cocaine, Heroin, Marijuana, Methamphetamine Family History: CAD, CVA, DM, Hyperlipidemia, Hypertension, Malignancy Patient has suicidal ideation: No Patient has homicidal ideation: No - Past Medical History Cardiac Medical History: Reports: Hx Hypertension, Hx Peripheral Vascular Disease Pulmonary Medical History: Reports: Hx Bronchitis, Hx COPD Neurological Medical History: Reports: Hx Migraine, Hx Seizures Musculoskeletal Medical History: Reports Hx Musculoskeletal Trauma - right hand Psychiatric Medical History: Reports: Hx Bipolar Disorder, Hx Depression Traumatic Medical History: Reports: Hx Fractures - right hand Infectious Medical History: Reports: Hx C-Diff Past Surgical History: Reports: Hx Cardiac Surgery - AAA repair, Hx Orthopedic Surgery - Right hand, Hx Vascular Surgery - Immunizations Immunizations up to date: Yes Hx Diphtheria, Pertussis, Tetanus Vaccination: Yes - 2014 Review of Systems - Review of Systems Notes: unobtainable due to lack of cooperation, sleeping and will not wake up. Physical Exam - Vital signs Vitals: Temp Pulse Resp BP Pulse Ox 98.2 F 82 16 140/90 H 99 08/07/19 21:23 08/07/19 21:23 08/07/19 21:23 08/07/19 21:23 08/07/19 21:23 - Notes Notes: Physical Exam: General: Sleeping, will not wake up to cooperate with exam. HEENT: Normocephalic. Atraumatic. Neck: Supple. Respiratory: No respiratory distress. Abdominal: Normal Inspection. No distension. Extremities: Moves all four extremities. Neurological: Normal cognition. AAOx4. Normal speech. Psychological: Normal affect. Normal Mood. Skin: Warm. Dry. Normal color. Course - Vital Signs Vital signs: Temp Pulse Resp BP Pulse Ox 98.2 F 82 16 140/90 H 99 08/07/19 22:37 08/07/19 22:37 08/07/19 22:37 08/07/19 22:37 08/07/19 22:37 - Laboratory Result Diagrams: 08/07/19 22:23 08/07/19 22:23 Laboratory results interpreted by me: 08/07/19 08/07/19 22:23 22:23 WBC 11.2 H RBC 4.10 L Hgb 12.9 L RDW 16.8 H BUN 32 H Creatinine 1.81 H Est GFR ( Amer) 48 L Est GFR (MDRD) Non-Af 40 L Total Protein 8.6 H Salicylates < 1.0 L Acetaminophen < 10 L - EKG Interpretation by Me Additional EKG results interpreted by me: 08/08/19 00:12 EKG obtained on 08/07/2019 at 2129 hrs. was interpreted by this MD. Findings normal sinus rhythm, rate 74, P waves proceed QRS complexes, QRS complexes appear narrow, there are no obvious patterns of ST segment elevation or depression present to suggest acute myocardial ischemia or infarction. Impression: Normal sinus rhythm with nonspecific ST segments. Discharge - Discharge Clinical Impression: History of substance abuse Chronic renal insufficiency Qualifiers: Chronic kidney disease stage: unspecified stage Qualified Code(s): N18.9 - Chronic kidney disease, unspecified Condition: Good Disposition: HOME, SELF-CARE Additional Instructions: Return to the Emergency Department without delay if any worse. HOME CARE INSTRUCTIONS & INFORMATION: Thank you for choosing us for your medical needs. We hope you're satisfied with the care you received. After you leave, you must properly care for your problem and, at the same time, observe its progress. Any condition can change. Some illnesses can change rapidly over hours or days. If your condition worsens, return to the Emergency Department or see your physician promptly. ABOUT YOUR X-RAYS AND EKG'S: If you had an EKG or X-rays taken, they have been read by the Emergency Physician. The X-rays and EKG's will also be read by a Radiologist or El[employer] Yarn Twister within 24 hours. If discrepancies are noted, you will be notified by telephone. Please be certain the ED has a correct telephone number & address where you can be reached. Also, realize that some fractures or abnormalities do not show up on initial X-rays. If your symptoms continue, see your physician. ABOUT YOUR LABORATORY TEST: If you had laboratory tests, the results have been reviewed by the Emergency Physician. Some test results (for example cultures) may not be available for several days. You will be contacted if any test result shows you need additional treatment. Please be certain the ED has a correct telephone number and address where you can be reached. ABOUT YOUR MEDICATIONS: You will receive instructions on how to take your medicine on the prescription label you receive. Additional information may be provided by the Pharmacy. If you have questions afterwards, call the ED for clarification or further instructions. Some prescribed medications may cause drowsiness. Do not perform tasks such as driving a car or operating machinery without consulting your Pharmacist. If you feel you need a refill of pain medication, your condition will need re-evaluation. Please do not call for a re fill of any medication. ABOUT YOUR SIGNATURE: Signature of this document acknowledges to followin. Understanding that you received emergency treatment and that you may be released before al medical problems are known or treated. Please be certain the ED has a correct phone number & address where you can be reached. 2. Acknowledgement that you will arrange for follow-up care as recommended. 3. Authorization for the Emergency Physician to provide information to your follow-up Physician in order to maximize your care. AT ANY TIME, IF YOUR SYMPTOMS CHANGE SIGNIFICANTLY OR WORSEN OR YOU DEVELOP NEW SYMPTOMS, RETURN TO THE EMERGENCY DEPARTMENT IMMEDIATELY FOR RE-EVALUATION. OUR GOAL IS TO PROVIDE EXCELLENT MEDICAL CARE! WE HOPE THAT WE HAVE MET YOUR EXPECTATIONS DURING YOUR EMERGENCY DEPARTMENT VISIT AND THAT YOU FEEL YOU HAVE RECEIVED EXCELLENT CARE! Referrals: SANDRA PARDO MD [Primary Care Provider] - Follow up as needed I personally performed the services described in the documentation, reviewed and edited the documentation which was dictated to the scribe in my presence, and it accurately records my words and actions.
== END 2019-08-08 00:44 | disposition home or self-care (01) ==
LOC: ER 21:14
DX: I12.9 Hypertensive chronic kidney disease with stage 1 through stage 4 chronic kidney disease, or unspecified chronic kidney disease (principal); N18.9 Chronic kidney disease, unspecified; R55 Syncope and collapse; M79.10 Myalgia, unspecified site; F17.200 Nicotine dependence, unspecified, uncomplicated; J44.9 Chronic obstructive pulmonary disease, unspecified; Z88.6 Allergy status to analgesic agent
CPT/HCPCS: 36415; 80307; 87070; 93005; 93010; 99283

== ENCOUNTER 2019-08-08 17:21 | Emergency (ER) | payer OTHER ==
--- NOTE | 2019-08-08 19:40 | ER Document Report ---
ED General - General Chief Complaint: Medical Clearance Stated Complaint: SWEATING/CHILLS/NAUSEA/VOMITING Time Seen by Provider: 08/08/19 17:35 Primary Care Provider: SANDRA PARDO MD [Primary Care Provider] - Follow up as needed Mode of Arrival: Ambulatory Information source: Patient Notes: This 49-year-old male presents to the emergency department with a history of here for medical clearance in order to go to a facility for his substance use. He has been seen here within the past 72 hours and had a medical evaluation labs, EKG which were normal. Presently he is hemodynamically stable. TRAVEL OUTSIDE OF THE [place] IN LAST 30 DAYS: No - Related Data Allergies/Adverse Reactions: ketorolac [From Toradol] Allergy (Verified 08/07/19 00:38) morphine Allergy (Verified 08/07/19 00:38) permethrin Allergy (Verified 08/07/19 00:38) Past Medical History - Social History Smoking Status: Current Every Day Smoker Frequency of alcohol use: None Drug Abuse: Heroin, Methamphetamine, Other Family History: CAD, CVA, DM, Hyperlipidemia, Hypertension, Malignancy Patient has suicidal ideation: No Patient has homicidal ideation: No - Past Medical History Cardiac Medical History: Reports: Hx Hypertension, Hx Peripheral Vascular Disease Denies: Hx Heart Attack Pulmonary Medical History: Reports: Hx Bronchitis, Hx COPD Denies: Hx Asthma Neurological Medical History: Reports: Hx Migraine, Hx Seizures Renal/ Medical History: Denies: Hx Peritoneal Dialysis Musculoskeletal Medical History: Denies Hx Arthritis, Reports Hx Musculoskeletal Trauma - right hand Psychiatric Medical History: Reports: Hx Bipolar Disorder, Hx Depression Traumatic Medical History: Reports: Hx Fractures - right hand Infectious Medical History: Reports: Hx C-Diff Past Surgical History: Reports: Hx Cardiac Surgery - AAA repair, Hx Orthopedic Surgery - Right hand, Hx Vascular Surgery - Immunizations Immunizations up to date: Yes Hx Diphtheria, Pertussis, Tetanus Vaccination: Yes - 2014 Review of Systems - Review of Systems Notes: Constitutional: Negative for fever. HENT: Negative for sore throat. Eyes: Negative for visual changes. Cardiovascular: Negative for chest pain. Respiratory: Negative for shortness of breath. Gastrointestinal: Negative for abdominal pain, vomiting or diarrhea. Genitourinary: Negative for dysuria. Musculoskeletal: Negative for back pain. Skin: Negative for rash. Neurological: Negative for headaches, weakness or numbness. 10 point ROS negative except as marked above and in HPI. Physical Exam - Notes Notes: PHYSICAL EXAMINATION: Physical Exam: General: Well-nourished well-developed in no acute distress HEENT: NC/AT, pupils equal round and reactive to light, MM moist,nares clear, oropharynx clear Neck: supple, no adenopathy, no masses. Lungs: clear, no wheezing, no rales no rhonchi CVS: Regular rate and rhythm no murmur gallop or rub Abdomen: Soft active nontender, no masses, no hepatosplenomegaly Ext: No edema clubbing or cyanosis. Neuro: Alert and responsive, moving all 4 extremities on command, cranial nerves intact. Skin: Intact no open lesions, no rash PSYCH: Normal mood, normal affect. Discharge - Discharge Clinical Impression: Polysubstance abuse Condition: Good Disposition: OTHER Instructions: (NO) Medical Clearance (OM) Additional Instructions: Patient will have copies of the lab and EKG from previous evaluation to take with him to the facility. Referrals: SANDRA PARDO MD [Primary Care Provider] - Follow up as needed
== END 2019-08-08 20:40 | disposition other institution (70) ==
LOC: ER 17:21
DX: F11.10 Opioid abuse, uncomplicated (principal); F15.10 Other stimulant abuse, uncomplicated; R61 Generalized hyperhidrosis; R68.83 Chills (without fever); R11.2 Nausea with vomiting, unspecified; F17.200 Nicotine dependence, unspecified, uncomplicated; Z88.8 Allergy status to other drugs, medicaments and biological substances; Z88.6 Allergy status to analgesic agent; Z88.5 Allergy status to narcotic agent; I10 Essential (primary) hypertension; J44.9 Chronic obstructive pulmonary disease, unspecified
CPT/HCPCS: 99283

== ENCOUNTER 2019-10-11 15:08 | Emergency (ER) | payer OTHER ==
[2019-10-11 15:15] VITALS: BP 125/78
--- NOTE | 2019-10-11 15:39 | ER Document Report ---
ED Medical Screen (RME) - General Chief Complaint: Abdominal Pain >50 Stated Complaint: UPPER ABDOMINAL PAIN Time Seen by Provider: 10/11/19 15:33 Primary Care Provider: SANDRA PARDO MD [Primary Care Provider] - Follow up as needed Notes: HPI: 49-year-old male presenting to the emergency department complaining 7 days of constant right upper quadrant pain. States the pain seems to radiate into the right back. No dysuria no hematuria. No fever nausea vomiting. Patient states it feels like past episodes of pancreatitis that he has had. Denies chest pain shortness of breath denies fever I have greeted and performed a rapid initial assessment of this patient. A comprehensive ED assessment and evaluation of the patient, analysis of test results and completion of the medical decision making process will be conducted by additional ED providers PHYSICAL EXAMINATION: Mildly uncomfortable appearing. There is no tenderness in the lower abdomen on palpation. There is no tenderness in the epigastric region on palpation. There is moderate tenderness in the right upper quadrant region on palpation I have greeted and performed a rapid initial assessment of this patient. A comprehensive ED assessment and evaluation of the patient, analysis of test results and completion of medical decision making process will be conducted by an additional ED providers. TRAVEL OUTSIDE OF THE [place] IN LAST 30 DAYS: No - Related Data Allergies/Adverse Reactions: ketorolac [From Toradol] Allergy (Verified 10/11/19 15:31) morphine Allergy (Verified 10/11/19 15:31) permethrin Allergy (Verified 10/11/19 15:31) Past Medical History - Social History Family history: None - Past Medical History Cardiac Medical History: Reports: Hx Hypertension, Hx Peripheral Vascular Disease Denies: Hx Heart Attack Pulmonary Medical History: Reports: Hx Bronchitis, Hx COPD Denies: Hx Asthma Neurological Medical History: Reports: Hx Migraine, Hx Seizures Renal/ Medical History: Denies: Hx Peritoneal Dialysis Musculoskeltal Medical History: Denies Hx Arthritis, Reports Hx Musculoskeletal Trauma - right hand Psychiatric Medical History: Reports: Hx Bipolar Disorder, Hx Depression Traumatic Medical History: Reports: Hx Fractures - right hand Infectious Medical History: Reports: Hx C-Diff Past Surgical History: Reports: Hx Cardiac Surgery - AAA repair, Hx Orthopedic Surgery - Right hand, Hx Vascular Surgery - Immunizations Immunizations up to date: Yes Hx Diphtheria, Pertussis, Tetanus Vaccination: Yes - 2014 Physical Exam - Vital signs Vitals: Temp Pulse Resp BP Pulse Ox 98.6 F 90 16 125/78 96 10/11/19 15:13 10/11/19 15:13 10/11/19 15:13 10/11/19 15:13 10/11/19 15:13 Course - Vital Signs Vital signs: Temp Pulse Resp BP Pulse Ox 98.6 F 90 16 125/78 96 10/11/19 15:13 10/11/19 15:13 10/11/19 15:13 10/11/19 15:13 10/11/19 15:13 Doctor's Discharge - Discharge Referrals: SANDRA PARDO MD [Primary Care Provider] - Follow up as needed
[2019-10-11 16:03] LABS: APPEARANCE,URINE CLEAR; BILIRUBIN,URINE NEGATIVE (NEGATIVE); COLOR,URINE YELLOW; GLUCOSE, URINE NEGATIVE (NEGATIVE); KETONES,URINE NEGATIVE (NEGATIVE); LEUKOCYTE ESTERASE,URINE NEGATIVE (NEGATIVE); NITRITE,URINE NEGATIVE (NEGATIVE); PROTEIN,URINE NEGATIVE (NEGATIVE); URINE SPECIFIC GRAVITY 1.011; UROBILINOGEN,URINE NEGATIVE mg/dL (<2.0)
[2019-10-11 16:43] LABS: ABSOLUTE EOSINOPHILS # (AUTO) 0.1 10^3/uL (0.0-0.6); ABSOLUTE LYMPHOCYTES (AUTO) 2.2 10^3/uL (0.5-4.7); ABSOLUTE MONOCYTES (AUTO) 0.6 10^3/uL (0.1-1.4); BASOPHILS % (AUTO) 0.3 % (0-2); HEMATOCRIT 37.4 % (37.9-51.0); HEMOGLOBIN 13.1 g/dL (13.5-17.0); LYMPHOCYTES % (AUTO) 31.6 % (13-45); MEAN CORPUSCULAR HEMOGLOBIN 33.2 pg (27.0-33.4); MEAN CORPUSCULAR HGB CONC 35.1 g/dL (32.0-36.0); MEAN CORPUSCULAR VOLUME 95 fl (80-97); MONOCYTES % (AUTO) 8.8 % (3-13); PLATELET COUNT 199 10^3/uL (150-450); RED BLOOD COUNT 3.95 10^6/uL (4.35-5.55); RED CELL DISTRIBUTION WIDTH 14.6 % (11.5-14.0); SEGMENTED NEUTROPHILS % (AUTO) 57.3 % (42-78); TOTAL CELLS COUNTED % (AUTO) 100 %
--- NOTE | 2019-10-11 16:57 | RADIOLOGY REPORT (SQ) ---
EXAM DESCRIPTION: U/S ABDOMEN LIMITED W/O DOP IMAGES COMPLETED DATE/TIME: 10/11/2019 4:41 pm REASON FOR STUDY: ruq pain COMPARISON: None. TECHNIQUE: Dynamic and static grayscale images acquired of the abdomen and recorded on PACS. Additio nal selected color Doppler and spectral images recorded. LIMITATIONS: None. FINDINGS: PANCREAS: No masses. Visualized pancreatic duct normal caliber. LIVER: No masses. Echotexture normal. LIVER VASCULATURE: Normal directional flow of the main portal vein and hepatic veins. GALLBLADDER: No stones. Normal wall thickness. No pericholecystic fluid. ULTRASOUND-DETECTED THOMPSON'S SIGN: Negative. INTRAHEPATIC DUCTS AND COMMON DUCT: CBD and intrahepatic ducts normal caliber. No filling defects. INFERIOR VENA CAVA: Normal flow. AORTA: No aneurysm. RIGHT KIDNEY: Normal size. Renal pelvis dilated 1 cm. Lower pole cyst 3.2 cm. PERITONEAL AND RIGHT PLEURAL SPACE: No ascites or effusions. OTHER: No other significant findings. IMPRESSION: No gallstones. Extra renal pelvis versus mild hydronephrosis right kidney. TECHNICAL DOCUMENTATION: JOB ID: [id number] 2010 [employer]- All Rights Reserved Reading location - IP/workstation name: [email or web address]
[2019-10-11 17:01] LABS: ALBUMIN 4.5 g/dL (3.5-5.0); ALKALINE PHOSPHATASE 92 U/L (38-126); ANION GAP 8 (5-19); ASPARTATE AMINO TRANSFERASE 48 U/L (17-59); BILIRUBIN,TOTAL 0.3 mg/dL (0.2-1.3); BLOOD UREA NITROGEN 28 mg/dL (7-20); CALCIUM 9.8 mg/dL (8.4-10.2); CARBON DIOXIDE 31 mmol/L (22-30); CHLORIDE 98 mmol/L (98-107); GLUCOSE 100 mg/dL (75-110); POTASSIUM 3.7 mmol/L (3.6-5.0)
[2019-10-11 17:03] LABS: TOTAL PROTEIN 8.1 g/dL (6.3-8.2)
[2019-10-11 17:14] LABS: BILIRUBIN,DIRECT 0.3 mg/dL (0.0-0.4)
--- NOTE | 2019-10-11 18:38 | ER Document Report ---
ED General - General Chief Complaint: Abdominal Pain Stated Complaint: UPPER ABDOMINAL PAIN Time Seen by Provider: 10/11/19 15:33 Primary Care Provider: SANDRA PARDO MD [NO LOCAL MD] - Follow up as needed Notes: triage note; pt ambulated to triage room without difficulty. pt is sitting in chair and able to speak in clear complete sentences. pt's respirations are even and unlabored at this time. pt complain of abdominal pain that does through is back that started 7 to 10 days ago. pt reports that he was dx with pancreatitis in 01/2015. pt's LBM was today. pt c/o of confusion. pt reports that he still has his gallbladder. pt denies n/v. pt reports that he feels pressure when urinating and sometimes he is not able to urinate. no sign of acute distress at this time Vanviegen present during triage. Jasiel BERG note HPI: 49-year-old male presenting to the emergency department complaining 7 days of constant right upper quadrant pain. States the pain seems to radiate into the right back. No dysuria no hematuria. No fever nausea vomiting. Patient states it feels like past episodes of pancreatitis that he has had. Denies chest pain shortness of breath denies fever my note; 49 year old male with 1 week of progressively increasing RUQ and right CVA pain. Patient last ate @ noon today without N/V/D.USrevealed right kidney hydronephrosis. TRAVEL OUTSIDE OF THE [place] IN LAST 30 DAYS: No - HPI Onset: Last week Onset/Duration: Persistent, Worse Quality of pain: Achy Severity: Severe Pain Level: 4 - "not relieved by Ultram" - Related Data Allergies/Adverse Reactions: ketorolac [From Toradol] Allergy (Verified 10/11/19 15:31) morphine Allergy (Verified 10/11/19 15:31) permethrin Allergy (Verified 10/11/19 15:31) Past Medical History - General Information source: Patient - Social History Smoking Status: Current Every Day Smoker Cigarette use (# per day): Yes Chew tobacco use (# tins/day): No Smoking Education Provided: Yes Frequency of alcohol use: None Drug Abuse: None Lives with: Family Family History: CAD, CVA, DM, Hyperlipidemia, Hypertension, Malignancy Patient has suicidal ideation: No Patient has homicidal ideation: No - Past Medical History Cardiac Medical History: Reports: Hx Hypertension, Hx Peripheral Vascular Disease Denies: Hx Heart Attack Pulmonary Medical History: Reports: Hx Bronchitis, Hx COPD Denies: Hx Asthma Neurological Medical History: Reports: Hx Migraine, Hx Seizures Renal/ Medical History: Denies: Hx Peritoneal Dialysis Musculoskeletal Medical History: Denies Hx Arthritis, Reports Hx Musculoskeletal Trauma - right hand Psychiatric Medical History: Reports: Hx Bipolar Disorder, Hx Depression Traumatic Medical History: Reports: Hx Fractures - right hand Infectious Medical History: Reports: Hx C-Diff Past Surgical History: Reports: Hx Cardiac Surgery - AAA repair, Hx Orthopedic Surgery - Right hand, Hx Vascular Surgery - Immunizations Immunizations up to date: Yes Hx Diphtheria, Pertussis, Tetanus Vaccination: Yes - 2014 Review of Systems - Review of Systems Constitutional: No symptoms reported EENT: No symptoms reported Cardiovascular: No symptoms reported Respiratory: No symptoms reported Gastrointestinal: See HPI, Abdominal pain, Other - r flank pain Genitourinary: No symptoms reported Male Genitourinary: No symptoms reported Musculoskeletal: No symptoms reported Skin: No symptoms reported Hematologic/Lymphatic: No symptoms reported Neurological/Psychological: No symptoms reported Physical Exam - Vital signs Vitals: Temp Pulse Resp BP Pulse Ox 98.6 F 90 16 125/78 96 10/11/19 15:13 10/11/19 15:13 10/11/19 15:13 10/11/19 15:13 10/11/19 15:13 Interpretation: Normal - General General appearance: Alert In distress: Mild - HEENT Head: Normocephalic Eyes: Normal Conjunctiva: Normal Cornea: Normal Extraocular movements intact: Yes Eyelashes: Normal Sinus: Normal Nasal: Normal Mouth/Lips: Normal Mucous membranes: Normal - Respiratory Respiratory status: No respiratory distress Chest status: Nontender Breath sounds: Normal Chest palpation: Normal - Cardiovascular Rhythm: Regular Heart sounds: Normal auscultation Murmur: No Friction rub: No Anand's crunch: No - Abdominal Distension: Distended Bowel sounds: Normal Tenderness: Tender - RUQ abd pain - Genitourinary Tenderness: Other - deferred - Back Back: Tender, CVA tenderness - right sided - Extremities General upper extremity: Normal inspection General lower extremity: Normal inspection, Other - pt ambulates slowly from BR - Neurological Neuro grossly intact: Yes Cognition: Normal Orientation: AAOx4 Mart Coma Scale Eye Opening: Spontaneous Rodrigo Coma Scale Verbal: Oriented Speech: Normal Cranial nerves: Normal Cerebellar coordination: Normal Motor strength normal: LUE, RUE, LLE, RLE - Psychological Associated symptoms: Normal affect - Skin Skin Temperature: Warm Skin Moisture: Dry Course - Vital Signs Vital signs: Temp Pulse Resp BP Pulse Ox 98.6 F 90 16 125/78 96 10/11/19 15:13 10/11/19 15:13 10/11/19 15:13 10/11/19 15:13 10/11/19 15:13 - Laboratory Result Diagrams: 10/11/19 16:10 10/11/19 16:10 Laboratory results interpreted by me: 10/11/19 10/11/19 16:10 16:10 RBC 3.95 L Hgb 13.1 L Hct 37.4 L RDW 14.6 H Sodium 136.7 L Carbon Dioxide 31 H BUN 28 H - Diagnostic Test Radiology reviewed: Reports reviewed Radiology results interpreted by me: 10/11/19 19:35 r and l kidney cysts Critical Care Note - Critical Care Note Total time excluding time spent on procedures (mins): 90 Comments: I discussed the labs US and CT results with patient and he appears to understa nd. Discharge - Discharge Clinical Impression: Kidney cysts, RUQ abdominal pain Condition: Good Disposition: HOME, SELF-CARE Instructions: Abdominal Pain ([facility]) Additional Instructions: You have kidney cysts and you should follow with a urologist /kidney specialists; return to ER as needed Prescriptions: Chlorzoxazone [Parafon Forte Dsc 500 Mg Tablet] 500 mg PO BID PRN #20 tablet PRN Reason: Referrals: SANDRA PARDO MD [NO LOCAL MD] - Follow up as needed
[2019-10-11] MEDS ORDERED: FENTANYL CITRATE INJ/PF 100 MCG/2 ML AMPUL IM ONE (19:00)
[2019-10-11] MEDS ORDERED: PROMETHAZINE HCL INJ 25 MG/1 ML VIAL IM ONE (19:01)
--- NOTE | 2019-10-11 19:14 | RADIOLOGY REPORT (SQ) ---
EXAM DESCRIPTION: CT ABD/PELVIS NO ORAL OR IV IMAGES COMPLETED DATE/TIME: 10/11/2019 7:04 pm REASON FOR STUDY: pain COMPARISON: 08/21/2014 TECHNIQUE: CT scan of the abdomen and pelvis performed without intravenous or oral contrast. Images reviewed with lung, soft tissue, and bone windows. Reconstructed coronal and sagittal MPR images revi ewed. All images stored on PACS. All CT scanners at this facility use dose modulation, iterative reconstruction, and/or weight based d osing when appropriate to reduce radiation dose to as low as reasonably achievable (ALARA). [facility]: Dose Right [facility]: CareDose [facility]: Dose Right [facility]: Teradose 4D [facility]: [employer] RADIATION DOSE: mGy. LIMITATIONS: None. FINDINGS: LOWER CHEST: No significant findings. No nodules or infiltrates. NON-CONTRASTED LIVER, SPLEEN, ADRENALS: Evaluation limited by lack of IV contrast. No identified sign ificant masses. PANCREAS: No masses. No peripancreatic inflammatory changes. GALLBLADDER: No identified stones by CT criteria. No inflammatory changes to suggest cholecystitis. RIGHT KIDNEY AND URETER: Well circumscribed low density mass(es) statistically most likely to be cyst (s). Assessment limited by lack of iv contrast. No significant calcifications. No hydronephrosis or hydroureter. LEFT KIDNEY AND URETER: Well circumscribed low density mass(es) statistically most likely to be cyst( s). Assessment limited by lack of iv contrast. No significant calcifications. No hydronephrosis o r hydroureter. AORTA AND RETROPERITONEUM: Stent graft. BOWEL AND PERITONEAL CAVITY: No obvious masses or inflammatory changes. No free fluid. APPENDIX: Normal. PELVIS, BLADDER, AND ABDOMINAL WALL:No abnormal masses. No free fluid. Bladder normal. 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 OTHER: No other significant finding. IMPRESSION: NO SIGNIFICANT OR ACUTE PROCESS IN THE ABDOMEN OR PELVIS. COMMENT: Quality ID # [id number]: Final reports with documentation of one or more dose reduction techniques (e.g., Automated exposure control, adjustment of the mA and/or kV according to patient size, use of iterative reconstruction technique) TECHNICAL DOCUMENTATION: JOB ID: [id number] 2010 [employer]- All Rights Reserved Reading location - IP/workstation name: [email or web address]
[2019-10-11 20:03] LABS: URINE AMPHETAMINES SCREEN NEGATIVE; URINE COCAINE SCREEN NEGATIVE; URINE MARIJUANA (THC) SCREEN NEGATIVE; URINE METHADONE SCREEN NEGATIVE; URINE PHENCYCLIDINE SCREEN NEGATIVE
[2019-10-11 20:05] LABS: URINE BARBITURATES SCREEN UNCONFIRMED POSITIVE; URINE BENZODIAZEPINES SCREEN UNCONFIRMED POSITIVE
[2019-10-11] MEDS ORDERED: HYDROCODONE/ACETAMINOPHEN 5-325 MG (6 TAB/ER DISP) PO PRN (20:25)
--- NOTE | 2019-10-11 22:28 | EKG REPORT ---
SEVERITY:- NORMAL ECG - SINUS RHYTHM : Confirmed by: Jennifer Salinas MD 11-Oct-2019 22:28:04
== END 2019-10-11 20:36 | disposition home or self-care (01) ==
LOC: ER 15:08
DX: R10.11 Right upper quadrant pain (principal); Q61.02 Congenital multiple renal cysts; R41.0 Disorientation, unspecified; N13.30 Unspecified hydronephrosis; R10.9 Unspecified abdominal pain; F17.210 Nicotine dependence, cigarettes, uncomplicated; I10 Essential (primary) hypertension; J44.9 Chronic obstructive pulmonary disease, unspecified; Z87.19 Personal history of other diseases of the digestive system; Z88.8 Allergy status to other drugs, medicaments and biological substances; Z88.6 Allergy status to analgesic agent; Z88.5 Allergy status to narcotic agent
CPT/HCPCS: 93005; 99291; 99292; 96372; 36415; 83690; 85025; 80053; 81001; 84484; 80307; 76705; 74176; 93010; J3010; J2550

== ENCOUNTER 2019-12-28 16:09 | Emergency (ER) | payer OTHER ==
--- NOTE | 2019-12-28 17:30 | EKG REPORT ---
SEVERITY:- NORMAL ECG - SINUS RHYTHM : Confirmed by: Jennifer Salinas MD 28-Dec-2019 17:29:23
--- NOTE | 2019-12-28 18:11 | ER Document Report ---
ED Medical Screen (RME) - General Chief Complaint: Chest Pain Stated Complaint: CHEST PAIN Primary Care Provider: NAOMIE CASTANO FNP-C [Primary Care Provider] - Follow up as needed Notes: 49-year-old male with past medical history of hypertension, abdominal aortic aneurysm, pancreatitis, chronic low back pain presenting today with right upper quadrant pain and chest pain. The right upper quadrant pain has been occurring for approximately 2 weeks. Pain is constant. Worse with food. Radiates to his back. No nausea or vomiting. He also reports that he has had chest pain for 10 days. States it is substernal, constant and radiating to his back. His alterations supervisor is Dr. Devries with [facility]. Patient has a paper with additional test that his alterations supervisor has ordered for further evaluation of patient's chest pain. Denies any headaches, fevers, shortness of breath or additional symptoms at this time. I have greeted and performed a rapid initial assessment of this patient. A comprehesive ED assessment and evaluation of this patient, analysis of test results and completion of the medical decision-making process will be conducted by additional ED providers. TRAVEL OUTSIDE OF THE [place] IN LAST 30 DAYS: No - Related Data Allergies/Adverse Reactions: ketorolac [From Toradol] Allergy (Verified 10/11/19 15:31) morphine Allergy (Verified 10/11/19 15:31) permethrin Allergy (Verified 10/11/19 15:31) Home Medications: metoprolol, lisinoprol, clonidine, prozaac, gabapentin, motrin Past Medical History - Social History Family history: None - Past Medical History Cardiac Medical History: Reports: Hx Hypertension, Hx Peripheral Vascular Disease Denies: Hx Heart Attack Pulmonary Medical History: Reports: Hx Bronchitis, Hx COPD Denies: Hx Asthma Neurological Medical History: Reports: Hx Migraine, Hx Seizures Renal/ Medical History: Denies: Hx Peritoneal Dialysis Musculoskeltal Medical History: Denies Hx Arthritis, Reports Hx Musculoskeletal Trauma - right hand Psychiatric Medical History: Reports: Hx Bipolar Disorder, Hx Depression Traumatic Medical History: Reports: Hx Fractures - right hand Infectious Medical History: Reports: Hx C-Diff Past Surgical History: Reports: Hx Cardiac Surgery - AAA repair, Hx Orthopedic Surgery - Right hand, Hx Vascular Surgery - Immunizations Immunizations up to date: Yes Hx Diphtheria, Pertussis, Tetanus Vaccination: Yes - 2014 Review of Systems - Review of Systems Constitutional: No symptoms reported EENT: No symptoms reported Cardiovascular: See HPI Respiratory: No symptoms reported Gastrointestinal: See HPI Genitourinary: See HPI Physical Exam - Vital signs Vitals: Temp Pulse Resp BP Pulse Ox 98.5 F 69 16 160/87 H 96 12/28/19 16:18 12/28/19 16:18 12/28/19 16:18 12/28/19 16:18 12/28/19 16:18 Interpretation: Hypertensive - Notes Notes: Patient is in no acute distress. Abdomen is soft, tender to palpation in the right upper quadrant. Lungs are clear to auscultation bilaterally. Heart is regular rate rhythm no murmurs rubs or gallops. Course - Vital Signs Vital signs: Temp Pulse Resp BP Pulse Ox 98.5 F 69 16 160/87 H 96 12/28/19 17:53 12/28/19 16:18 12/28/19 16:18 12/28/19 16:18 12/28/19 16:18 - EKG Interpretation by Nv EKG shows normal: Sinus rhythm Doctor's Discharge - Discharge Referrals: NAOMIE CASTANO, [employer]ER-C [Primary Care Provider] - Follow up as needed
--- NOTE | 2019-12-28 18:49 | RADIOLOGY REPORT (SQ) ---
EXAM DESCRIPTION: CHEST SINGLE VIEW IMAGES COMPLETED DATE/TIME: 12/28/2019 6:22 pm REASON FOR STUDY: chest pain COMPARISON: 01/18/2019 EXAM PARAMETERS: NUMBER OF VIEWS: One view. TECHNIQUE: Single frontal radiographic view of the chest acquired. RADIATION DOSE: NA LIMITATIONS: None. FINDINGS: LUNGS AND PLEURA: No opacities, masses or pneumothorax. No pleural effusion. MEDIASTINUM AND HILAR STRUCTURES: No masses. Contour normal. HEART AND VASCULAR STRUCTURES: Cardiomegaly, unchanged finding. Normal vasculature. BONES: No acute findings. HARDWARE: None in the chest. OTHER: No other significant finding. IMPRESSION: 1. No significant interval changes since the prior examination dated 01/18/2019. No acu te findings. 2. Cardiomegaly, stable finding. TECHNICAL DOCUMENTATION: JOB ID: [id number] 2010 [employer]- All Rights Reserved Reading location - IP/workstation name: [email or web address]
[2019-12-28 19:15] LABS: ABSOLUTE BASOPHILS # (AUTO) 0.1 10^3/uL (0.0-0.2); ABSOLUTE EOSINOPHILS # (AUTO) 0.3 10^3/uL (0.0-0.6); ABSOLUTE LYMPHOCYTES (AUTO) 3.2 10^3/uL (0.5-4.7); ABSOLUTE MONOCYTES (AUTO) 0.6 10^3/uL (0.1-1.4); ABSOLUTE NEUT (AUTO) 3.9 10^3/uL (1.7-8.2); BASOPHILS % (AUTO) 0.8 % (0-2); EOSINOPHILS % (AUTO) 3.5 % (0-6); HEMATOCRIT 46.6 % (37.9-51.0); LYMPHOCYTES % (AUTO) 39.9 % (13-45); MEAN CORPUSCULAR HEMOGLOBIN 32.7 pg (27.0-33.4); MEAN CORPUSCULAR HGB CONC 34.4 g/dL (32.0-36.0); MEAN CORPUSCULAR VOLUME 95 fl (80-97); MONOCYTES % (AUTO) 7.8 % (3-13); PLATELET COUNT 157 10^3/uL (150-450); TOTAL CELLS COUNTED % (AUTO) 100 %; WHITE BLOOD COUNT 8.1 10^3/uL (4.0-10.5)
[2019-12-28 19:23] LABS: APPEARANCE,URINE CLEAR; BILIRUBIN,URINE NEGATIVE (NEGATIVE); COLOR,URINE YELLOW; GLUCOSE, URINE NEGATIVE (NEGATIVE); KETONES,URINE TRACE mg/dL (NEGATIVE); LEUKOCYTE ESTERASE,URINE NEGATIVE (NEGATIVE); NITRITE,URINE NEGATIVE (NEGATIVE); PROTEIN,URINE NEGATIVE (NEGATIVE); URINE SPECIFIC GRAVITY 1.018; UROBILINOGEN,URINE NEGATIVE mg/dL (<2.0)
[2019-12-28 19:33] LABS: ALBUMIN 4.9 g/dL (3.5-5.0); ALKALINE PHOSPHATASE 48 U/L (38-126); ANION GAP 8 (5-19); ASPARTATE AMINO TRANSFERASE 27 U/L (17-59); BILIRUBIN,DIRECT 0.1 mg/dL (0.0-0.4); BILIRUBIN,TOTAL 0.5 mg/dL (0.2-1.3); BLOOD UREA NITROGEN 17 mg/dL (7-20); CALCIUM 9.8 mg/dL (8.4-10.2); CARBON DIOXIDE 29 mmol/L (22-30); CHLORIDE 102 mmol/L (98-107); CREATINE KINASE 110 U/L (55-170); GLUCOSE 100 mg/dL (75-110); POTASSIUM 3.6 mmol/L (3.6-5.0); TOTAL PROTEIN 8.5 g/dL (6.3-8.2)
[2019-12-28 19:44] LABS: CREATINE KINASE MB 0.68 ng/mL (<4.55); TROPONIN I < 0.012 ng/mL
--- NOTE | 2019-12-28 19:52 | RADIOLOGY REPORT (SQ) ---
EXAM DESCRIPTION: U/S ABDOMEN LIMITED W/O DOP IMAGES COMPLETED DATE/TIME: 12/28/2019 7:28 pm REASON FOR STUDY: RUQ pain COMPARISON: 10/11/2019 TECHNIQUE: Dynamic and static grayscale images acquired of the abdomen and recorded on PACS. Juan Joseo alisia selected color Doppler and spectral images recorded. LIMITATIONS: None. FINDINGS: PANCREAS: No masses. The tail was poorly seen. LIVER: No masses. Echotexture normal. LIVER VASCULATURE: Normal directional flow of the main portal vein and hepatic veins. GALLBLADDER: No stones. Normal wall thickness. No pericholecystic fluid. ULTRASOUND-DETECTED THOMPSON'S SIGN: Negative. INTRAHEPATIC DUCTS AND COMMON DUCT: CBD and intrahepatic ducts normal caliber. No filling defects. INFERIOR VENA CAVA: Normal flow. AORTA: No aneurysm. RIGHT KIDNEY: Normal size, 11 cm. A couple of cysts are seen. The larger measures 34 mm. The jorge luis l pelvis is prominent but there is no true hydronephrosis. PERITONEAL AND RIGHT PLEURAL SPACE: No ascites or effusions. OTHER: No other significant findings. IMPRESSION: Prominent right renal pelvis with no true hydronephrosis. TECHNICAL DOCUMENTATION: JOB ID: [id number] 2010 [employer]- All Rights Reserved Reading location - IP/workstation name: [email or web address]
--- NOTE | 2019-12-28 23:04 | ER Document Report ---
ED General - General Chief Complaint: Chest Pain Stated Complaint: CHEST PAIN Time Seen by Provider: 12/28/19 23:03 Primary Care Provider: NAOMIE CASTANO FNP-C [Primary Care Provider] - Follow up as needed Mode of Arrival: Ambulatory Information source: Patient Notes: 12/28/19 17:54 - ED Nursing Note by SAMI CANTU Num: [id number] : 1970 Patient Age: 49 patient complains of stomach pain x2 weeks, black tarry stools x7 days, and chest pain and nausea x10 days. patient states he went to his civil cad tech today and was sent to the er for evaluation. patient breaths e/u, nad Kimberly BERG notes 49-year-old male with past medical history of hypertension, abdominal aortic aneurysm, pancreatitis, chronic low back pain presenting today with right upper quadrant pain and chest pain. The right upper quadrant pain has been occurring for approximately 2 weeks. Pain is constant. Worse with food. Radiates to his back. No nausea or vomiting. He also reports that he has had chest pain for 10 days. States it is substernal, constant and radiating to his back. His civil cad tech is Dr. Devries with [facility]. Patient has a paper with additional test that his civil cad tech has ordered for further evaluation of patient's chest pain. Denies any headaches, fevers, shortness of breath or additional symptoms at this time. my notes 49-year-old male arrives by POV with chief complaint of having right upper quadrant abdominal pain that is severe. He reports he was sent here by his civil cad tech because of" chest pain." Patient has a history of AAA that was diagnosed several years ago while getting a heart catheterization. He has not had any surgery or aortic repair". Patient reports this morning he began to have black stools that came out and forceful amounts. He denied any bloody stools. He denies any hematemesis or abdominal distention or trauma or abuse or animal bites human bites exposure to gay Ebola TRAVEL OUTSIDE OF THE [place] IN LAST 30 DAYS: No - HPI Onset: Last week Onset/Duration: Sudden, Persistent, Worse Quality of pain: Achy, Fullness Severity: Moderate Pain Level: 2 Associated symptoms: Diarrhea, Weakness Exacerbated by: Movement, Other - Patient last ate some chicken salad sandwich around 12 noon Relieved by: Denies Similar symptoms previously: No Recently seen / treated by doctor: Yes - Related Data Allergies/Adverse Reactions: ketorolac [From Toradol] Allergy (Verified 10/11/19 15:31) morphine Allergy (Verified 10/11/19 15:31) permethrin Allergy (Verified 10/11/19 15:31) Home Medications: metoprolol, lisinoprol, clonidine, prozaac, gabapentin, motrin Past Medical History - General Information source: Patient - Social History Smoking Status: Current Every Day Smoker Cigarette use (# per day): Yes Chew tobacco use (# tins/day): No Smoking Education Provided: Yes Frequency of alcohol use: None Drug Abuse: None Lives with: Family Family History: CAD, CVA, DM, Hyperlipidemia, Hypertension, Malignancy Patient has suicidal ideation: No Patient has homicidal ideation: No - Past Medical History Cardiac Medical History: Reports: Hx Hypertension, Hx Peripheral Vascular Disease Denies: Hx Heart Attack Pulmonary Medical History: Reports: Hx Bronchitis, Hx COPD Denies: Hx Asthma Neurological Medical History: Reports: Hx Migraine, Hx Seizures Renal/ Medical History: Denies: Hx Peritoneal Dialysis Musculoskeletal Medical History: Denies Hx Arthritis, Reports Hx Musculoskeletal Trauma - right hand Psychiatric Medical History: Reports: Hx Bipolar Disorder, Hx Depression Traumatic Medical History: Reports: Hx Fractures - right hand Infectious Medical History: Reports: Hx C-Diff Past Surgical History: Reports: Hx Cardiac Surgery - AAA repair, Hx Orthopedic Surgery - Right hand, Hx Vascular Surgery - Immunizations Immunizations up to date: Yes Hx Diphtheria, Pertussis, Tetanus Vaccination: Yes - 2014 Review of Systems - Review of Systems Constitutional: See HPI, Weakness EENT: No symptoms reported Cardiovascular: No symptoms reported Respiratory: No symptoms reported Gastrointestinal: See HPI, Abdominal pain, Diarrhea, Black stools Genitourinary: No symptoms reported Male Genitourinary: No symptoms reported Musculoskeletal: No symptoms reported Skin: No symptoms reported Hematologic/Lymphatic: No symptoms reported Neurological/Psychological: No symptoms reported Physical Exam - Vital signs Vitals: Temp Pulse Resp BP Pulse Ox 98.5 F 69 16 160/87 H 96 12/28/19 16:18 12/28/19 16:18 12/28/19 16:18 12/28/19 16:18 12/28/19 16:18 Interpretation: Hypertensive - General General appearance: Alert - HEENT Head: Normocephalic, Atraumatic Eyes: Normal Pupils: PERRL Sinus: Normal Nasal: Normal Mouth/Lips: Normal Mucous membranes: Normal Pharynx: Normal Neck: Normal - Respiratory Respiratory status: No respiratory distress Chest status: Nontender Breath sounds: Normal Chest palpation: Normal - Cardiovascular Rhythm: Regular Heart sounds: Normal auscultation Murmur: No - Abdominal Inspection: Normal Distension: Distended Tenderness: Tender - RUQ pain - Rectal Tenderness: Yes Stool: Heme negative Hemorrhoids: None Prostate: Normal - Genitourinary Tenderness: Nontender - Back Back: Normal - Extremities General upper extremity: Normal inspection, Nontender, Normal color, Normal ROM, Normal temperature General lower extremity: Normal inspection, Nontender, Normal color, Normal ROM, Normal temperature, Normal weight bearing. No: Daniel's sign - Neurological Neuro grossly intact: Yes Cognition: Normal Orientation: AAOx4 [place] Coma Scale Eye Opening: Spontaneous Rodrigo Coma Scale Verbal: Oriented Rodrigo Coma Scale Motor: Obeys Commands [place] Coma Scale Total: 15 Speech: Normal Motor strength normal: LUE, RUE, LLE, RLE Sensory: Normal - Psychological Associated symptoms: Normal affect - Skin Skin Temperature: Warm Skin Moisture: Dry Course - Vital Signs Vital signs: Temp Pulse Resp BP Pulse Ox 98.5 F 69 20 188/100 H 98 12/28/19 17:53 12/28/19 16:18 12/29/19 00:00 12/28/19 23:56 12/29/19 00:00 - Laboratory Result Diagrams: 12/28/19 18:56 12/28/19 18:56 Laboratory results interpreted by me: 12/28/19 12/28/19 12/28/19 18:45 18:56 18:56 RDW 15.0 H Creatinine 1.34 H Est GFR (MDRD) Non-Af 56 L Total Protein 8.5 H Urine Ketones TRACE H - Diagnostic Test Radiology reviewed: Reports reviewed Radiology results interpreted by me: 12/29/19 01:23 CT abdomen reveals colon and rectum with fluid and aorta with aortic iliac stent graft and no aneurysm Critical Care Note - Critical Care Note Total time excluding time spent on procedures (mins): 90 Comments: I informed patient of his labs and CT findings Discharge - Discharge Clinical Impression: Abdominal pain Qualifiers: Abdominal location: right upper quadrant Qualified Code(s): R10.11 - Right upper quadrant pain Hypertension Qualifiers: Hypertension type: unspecified Qualified Code(s): I10 - Essential (primary) hypertension Condition: Good Disposition: HOME, SELF-CARE Additional Instructions: Follow-up with civil cad tech and with personal doctor this week return to ER as needed take medicines as directed encourage fluids Prescriptions: Dicyclomine HCl [Bentyl 20 mg Tablet] 20 mg PO QID PRN #40 tablet PRN Reason: Pain Scale Of 1 Cholestyramine/Aspartame [Questran Light Powder] 210 gm PO DAILY PRN 2 Days #420 gm PRN Reason: Diarrhea Referrals: NAOMIE CASTANO FNP-C [Primary Care Provider] - Follow up as needed
[2019-12-28] MEDS ORDERED: FENTANYL CITRATE INJ/PF 100 MCG/2 ML AMPUL IV PRN (23:18)
[2019-12-28] MEDS ORDERED: PROMETHAZINE HCL INJ 25 MG/1 ML VIAL IV ONE (23:23)
[2019-12-28] MEDS ORDERED: NORMAL SALINE 1000 ML 1,000 ML IV ONE (23:24)
[2019-12-29] MEDS ORDERED: CLONIDINE HCL 0.1 MG TABLET PO ONE (00:28)
--- NOTE | 2019-12-29 01:20 | RADIOLOGY REPORT (SQ) ---
EXAM DESCRIPTION: CT ABDOMEN PELVIS WITH IV CONTRAST COMPLETED DATE/TME: 12/28/2019 23:11 CLINICAL HISTORY: 49 years, Male, ABD pain x2 weeks, black tarry stools x7 days. CREAT 1.34 COMPARISON: 10/11/2019 TECHNIQUE: Axial CT images of the abdomen and pelvis were obtained after the injection of IV contrast. Sagittal and coronal reformats were performed. DLP 718 Images stored on PACS. All CT scanners at this facility use dose modulation, iterative reconstruction, and/or weight based dosing when appropriate to reduce radiation dose to as low as reasonably achievable (ALARA). [facility]: Dose Right [facility]: CareDose [facility]: Dose Right [facility]: Teradose 4D [facility]: Smart [employer] LIMITATIONS: None. FINDINGS: The lung bases are clear. The liver, gallbladder, pancreas, spleen, and adrenal glands are unremarkable. Bilateral renal cysts are noted. No evidence of hydronephrosis bilaterally. There is no intraperitoneal free air or fluid. There is no lymphadenopathy. An aortobiiliac stent graft is in place. No evidence of an aneurysm. The stomach, small bowel and appendix appear unremarkable. The colon and rectum contains some fluid. The urinary bladder and prostate gland are unremarkable. There are chronic bilateral L5 5 pars defects with minimal grade 1 anterolisthesis of L5 over S1. IMPRESSION: Fluid within the colon and rectum, which may be due to diarrhea. TECHNICAL DOCUMENTATION: Quality ID # 436: Final reports with documentation of one or more dose reduction techniques (e.g., Automated exposure control, adjustment of the mA and/or kV according to patient size, use of iterative reconstruction technique) copyright 2011 [email or web address]- All Rights Reserved
[2019-12-29] MEDS ORDERED: CHOLESTYRAMINE 4 GM PACKET PO ONE (01:28)
[2019-12-29] MEDS ORDERED: DICYCLOMINE HCL 20 MG TABLET PO ONE (02:04)
[2019-12-29] MEDS ORDERED: CHOLESTYRAMINE 4 GM PACKET ONE (02:05)
[2019-12-29 03:11] VITALS: BP 153/93
[2019-12-29 09:49] LABS: C DIFFICILE GDH NEGATIVE (NEGATIVE)
== END 2019-12-29 03:21 | disposition home or self-care (01) ==
LOC: ER 16:09
DX: R10.11 Right upper quadrant pain (principal); R19.5 Other fecal abnormalities; R07.2 Precordial pain; R19.7 Diarrhea, unspecified; R53.1 Weakness; I11.9 Hypertensive heart disease without heart failure; J44.9 Chronic obstructive pulmonary disease, unspecified; F17.210 Nicotine dependence, cigarettes, uncomplicated; Z86.79 Personal history of other diseases of the circulatory system; Z79.899 Other long term (current) drug therapy; Z79.1 Long term (current) use of non-steroidal anti-inflammatories (NSAID); Z88.8 Allergy status to other drugs, medicaments and biological substances; Z88.6 Allergy status to analgesic agent; Z88.5 Allergy status to narcotic agent; Z82.49 Family history of ischemic heart disease and other diseases of the circulatory system
CPT/HCPCS: 93005; 99291; 99292; 96361; 96374; 96375; 36415; 82553; 82550; 83690; 85025; 80053; 81001; 84484; 87324; 87449; 71045; 76705; 74177; 93010; J3490 ×2; J3010; J2550; J7030

== ENCOUNTER 2019-12-29 18:12 | Emergency (ER) | payer OTHER ==
[2019-12-29 18:31] VITALS: BP 200/98
--- NOTE | 2019-12-29 18:56 | ER Document Report ---
ED Medical Screen (RME) - General Chief Complaint: Chest Pain Stated Complaint: HIGH BLOOD PRESSURE Time Seen by Provider: 12/29/19 18:50 Primary Care Provider: NAOMIE CASTANO FNP-C [Primary Care Provider] - Follow up as needed Information source: Patient Notes: Patient presents with multiple complaints. Patient reports that he has had chest pain midsternally that radiates through to his back and up to the right side of his head for the past week. Patient states that today he had a sudden onset of chest pain that radiated to the right side of his neck into his head and he had some facial numbness. Patient states that he initially had facial numbness to entire face and noticed as left-sided facial numbness. Patient states that his blood pressure is elevated tonight despite taking all of his blood pressure medications. Patient takes metoprolol 100 mg twice a day, lisinopril HCTZ 20/12.5 once a day and clonidine 0.2 mg twice a day. Patient also reports dark tarry stools. Patient states he was here for the symptoms yesterday but the pain worsened today which prompted his return. I have greeted and performed a rapid initial assessment of this patient. A comprehensive ED assessment and evaluation of the patient, analysis of test results and completion of the medical decision making process will be conducted by additional ED providers. TRAVEL OUTSIDE OF THE [place] IN LAST 30 DAYS: No - Related Data Allergies/Adverse Reactions: ketorolac [From Toradol] Allergy (Verified 10/11/19 15:31) morphine Allergy (Verified 10/11/19 15:31) permethrin Allergy (Verified 10/11/19 15:31) Past Medical History - Social History Frequency of alcohol use: None Drug Abuse: None Family history: None - Past Medical History Cardiac Medical History: Reports: Hx Hypertension, Hx Peripheral Vascular Disease Denies: Hx Heart Attack Pulmonary Medical History: Reports: Hx Bronchitis, Hx COPD Denies: Hx Asthma Neurological Medical History: Reports: Hx Migraine, Hx Seizures Renal/ Medical History: Denies: Hx Peritoneal Dialysis Musculoskeltal Medical History: Denies Hx Arthritis, Reports Hx Musculoskeletal Trauma - right hand Psychiatric Medical History: Reports: Hx Bipolar Disorder, Hx Depression Traumatic Medical History: Reports: Hx Fractures - right hand Infectious Medical History: Reports: Hx C-Diff Past Surgical History: Reports: Hx Cardiac Surgery - AAA repair, Hx Orthopedic Surgery - Right hand, Hx Vascular Surgery - Immunizations Immunizations up to date: Yes Hx Diphtheria, Pertussis, Tetanus Vaccination: Yes - 2014 Physical Exam - Vital signs Vitals: Temp Pulse Resp BP Pulse Ox 98.8 F 59 L 14 200/98 H 99 12/29/19 18:28 12/29/19 18:28 12/29/19 18:28 12/29/19 18:28 12/29/19 18:28 - Cardiovascular Rhythm: Regular Heart sounds: S1 appreciated, S2 appreciated - Neurological Neuro grossly intact: Yes [place] Coma Scale Eye Opening: Spontaneous [place] Coma Scale Verbal: Oriented Rodrigo Coma Scale Motor: Obeys Commands [place] Coma Scale Total: 15 Cranial nerves: Sensory deficit - Left-sided facial numbness. No: Facial palsy, Tongue deviation - Psychological Associated symptoms: Anxious Course - Vital Signs Vital signs: Temp Pulse Resp BP Pulse Ox 98.8 F 59 L 14 200/98 H 99 12/29/19 18:28 12/29/19 18:28 12/29/19 18:28 12/29/19 18:28 12/29/19 18:28 Doctor's Discharge - Discharge Referrals: NAOMIE CASTANO FNP-C [Primary Care Provider] - Follow up as needed
--- NOTE | 2019-12-29 19:14 | RADIOLOGY REPORT (SQ) ---
EXAM DESCRIPTION: CHEST 2 VIEWS IMAGES COMPLETED DATE/TIME: 12/29/2019 7:04 pm REASON FOR STUDY: cp COMPARISON: 12/28/2019 EXAM PARAMETERS: NUMBER OF VIEWS: two views TECHNIQUE: Digital Frontal and Lateral radiographic views of the chest acquired. RADIATION DOSE: NA LIMITATIONS: none FINDINGS: LUNGS AND PLEURA: No opacities, masses or pneumothorax. No pleural effusion. MEDIASTINUM AND HILAR STRUCTURES: No masses or contour abnormalities. HEART AND VASCULAR STRUCTURES: Cardiomegaly, unchanged finding. No evidence for failure. BONES: No acute findings. HARDWARE: None in the chest. OTHER: No other significant finding. IMPRESSION: 1. No significant interval changes since the prior examination dated 12/28/2019. No acu te findings. TECHNICAL DOCUMENTATION: JOB ID: [id number] 2010 [employer]- All Rights Reserved Reading location - IP/workstation name: [email or web address]
--- NOTE | 2019-12-29 19:24 | RADIOLOGY REPORT (SQ) ---
EXAM DESCRIPTION: CT HEAD WITHOUT IMAGES COMPLETED DATE/TIME: 12/29/2019 7:14 pm REASON FOR STUDY: SMITH, HTN COMPARISON: 01/18/2019 TECHNIQUE: Axial images acquired through the brain without intravenous contrast. Images reviewed wi th bone, brain and subdural windows. Additional sagittal and coronal reconstructions were generated. Images stored on PACS. All CT scanners at this facility use dose modulation, iterative reconstruction, and/or weight based d osing when appropriate to reduce radiation dose to as low as reasonably achievable (ALARA). [facility]: Dose Right [facility]: CareDose [facility]: Dose Right [facility]: Teradose 4D [facility]: Smart [employer] RADIATION DOSE: CT Rad equipment meets quality standard of care and radiation dose reduction techniq ues were employed. CTDIvol: 53.2 mGy. DLP: 1070 mGy-cm. mGy. LIMITATIONS: None. FINDINGS: VENTRICLES: Normal size and contour. CEREBRUM: No masses. No hemorrhage. No midline shift. No evidence for acute infarction. Normal gra y/white matter differentiation. No areas of low density in the white matter. CEREBELLUM: No masses. No hemorrhage. No alteration of density. No evidence for acute infarction. EXTRAAXIAL SPACES: No fluid collections. No masses. ORBITS AND GLOBE: No intra- or extraconal masses. Normal contour of globe without masses. CALVARIUM: No fracture. PARANASAL SINUSES: No fluid or mucosal thickening. SOFT TISSUES: No mass or hematoma. OTHER: No other significant finding. IMPRESSION: NORMAL BRAIN CT WITHOUT CONTRAST. EVIDENCE OF ACUTE STROKE: NO. COMMENT: Quality ID # 436: Final reports with documentation of one or more dose reduction techniques (e.g., Automated exposure control, adjustment of the mA and/or kV according to patient size, use of iterative reconstruction technique) TECHNICAL DOCUMENTATION: JOB ID: [id number] 2010 [employer]- All Rights Reserved Reading location - IP/workstation name: [email or web address]
[2019-12-29 20:15] LABS: ABSOLUTE BASOPHILS # (AUTO) 0.1 10^3/uL (0.0-0.2); ABSOLUTE EOSINOPHILS # (AUTO) 0.2 10^3/uL (0.0-0.6); ABSOLUTE MONOCYTES (AUTO) 0.8 10^3/uL (0.1-1.4); BASOPHILS % (AUTO) 0.9 % (0-2); MEAN CORPUSCULAR HGB CONC 34.6 g/dL (32.0-36.0); TOTAL CELLS COUNTED % (AUTO) 100 %
[2019-12-29 20:17] LABS: APPEARANCE,URINE CLEAR; BILIRUBIN,URINE NEGATIVE (NEGATIVE); COLOR,URINE YELLOW; GLUCOSE, URINE NEGATIVE (NEGATIVE); KETONES,URINE NEGATIVE (NEGATIVE); LEUKOCYTE ESTERASE,URINE NEGATIVE (NEGATIVE); NITRITE,URINE NEGATIVE (NEGATIVE); PROTEIN,URINE NEGATIVE (NEGATIVE); URINE SPECIFIC GRAVITY 1.026; UROBILINOGEN,URINE NEGATIVE mg/dL (<2.0)
[2019-12-29 20:20] LABS: ABSOLUTE LYMPHOCYTES (AUTO) 2.7 10^3/uL (0.5-4.7); ABSOLUTE NEUT (AUTO) 6.6 10^3/uL (1.7-8.2); EOSINOPHILS % (AUTO) 2.2 % (0-6); HEMATOCRIT 42.7 % (37.9-51.0); HEMOGLOBIN 14.8 g/dL (13.5-17.0); LYMPHOCYTES % (AUTO) 26.1 % (13-45); MEAN CORPUSCULAR HEMOGLOBIN 33.3 pg (27.0-33.4); MEAN CORPUSCULAR VOLUME 96 fl (80-97); MONOCYTES % (AUTO) 7.4 % (3-13); PLATELET COUNT 168 10^3/uL (150-450); RED BLOOD COUNT 4.43 10^6/uL (4.35-5.55); SEGMENTED NEUTROPHILS % (AUTO) 63.4 % (42-78); WHITE BLOOD COUNT 10.4 10^3/uL (4.0-10.5)
[2019-12-29 20:22] LABS: INTERNATIONAL RATION (INR) 0.91; PROTHROMBIN TIME 12.2 SEC (11.4-15.4)
[2019-12-29 20:23] LABS: PARTIAL THROMBOPLASTIN TIME 25.1 SEC (23.5-35.8)
[2019-12-29 20:47] LABS: ALBUMIN 4.6 g/dL (3.5-5.0); ALKALINE PHOSPHATASE 53 U/L (38-126); ANION GAP 7 (5-19); ASPARTATE AMINO TRANSFERASE 24 U/L (17-59); BILIRUBIN,TOTAL 0.3 mg/dL (0.2-1.3); BLOOD UREA NITROGEN 16 mg/dL (7-20); CALCIUM 9.5 mg/dL (8.4-10.2); CARBON DIOXIDE 30 mmol/L (22-30); CHLORIDE 102 mmol/L (98-107); GLUCOSE 105 mg/dL (75-110); POTASSIUM 3.5 mmol/L (3.6-5.0); TOTAL PROTEIN 8.1 g/dL (6.3-8.2)
--- NOTE | 2019-12-30 02:23 | EKG REPORT ---
SEVERITY:- NORMAL ECG - SINUS RHYTHM : Confirmed by: Jennifer Salinas MD 30-Dec-2019 02:22:52
== END 2019-12-29 21:18 | disposition left against medical advice (07) ==
LOC: ER 18:12
DX: R07.9 Chest pain, unspecified (principal); R20.0 Anesthesia of skin; I10 Essential (primary) hypertension; Z88.6 Allergy status to analgesic agent
CPT/HCPCS: 36415; 70450; 71046; 80053; 81001; 83690; 83735; 84484; 85025; 85610; 85730; 93005; 93010; 99284

== ENCOUNTER 2020-01-01 12:45 | Emergency (ER) | payer OTHER ==
[2020-01-01 12:53] VITALS: BP 134/77
== END 2020-01-01 15:00 | disposition left against medical advice (07) ==
LOC: ER 12:45
DX: Z53.21 Procedure and treatment not carried out due to patient leaving prior to being seen by health care provider (principal)

== ENCOUNTER 2020-01-26 16:03 | Emergency (ER) | payer OTHER ==
--- NOTE | 2020-01-26 18:13 | ER Document Report ---
ED Medical Screen (RME) - General Chief Complaint: Leg Pain Stated Complaint: POSSIBLE BLOOD CLOT LEFT LEG Time Seen by Provider: 01/26/20 17:59 Primary Care Provider: NAOMIE CASTANO FNP-C [Primary Care Provider] - Follow up as needed Notes: Patient is a 49-year-old male with a past medical history of peripheral vascular disease who presents the emergency department with left leg pain. Patient states that this feels similar as to when he had arterial clots before. Patient states that he has not been taking blood thinners for the past year. He states that he cannot afford them. Patient states that he has noticed that his toes have been more purplish/black on that side. States that it has gotten progressively worse. Exam: Delayed capillary refill to left toes. Weak dorsalis pedis pulse noted via Doppler at bedside. I have greeted and performed a rapid initial assessment of this patient. A comprehensive ED assessment and evaluation of the patient, analysis of test results and completion of medical decision making process will be conducted by an additional ED providers. TRAVEL OUTSIDE OF THE [place] IN LAST 30 DAYS: No - Related Data Allergies/Adverse Reactions: ketorolac [From Toradol] Allergy (Verified 01/01/20 15:00) morphine Allergy (Verified 01/01/20 15:00) permethrin Allergy (Verified 01/01/20 15:00) Past Medical History - Social History Frequency of alcohol use: None Drug Abuse: None Family history: None - Past Medical History Cardiac Medical History: Reports: Hx Hypertension, Hx Peripheral Vascular Disease Denies: Hx Heart Attack Pulmonary Medical History: Reports: Hx Bronchitis, Hx COPD Denies: Hx Asthma Neurological Medical History: Reports: Hx Migraine, Hx Seizures Renal/ Medical History: Denies: Hx Peritoneal Dialysis Musculoskeltal Medical History: Denies Hx Arthritis, Reports Hx Musculoskeletal Trauma - right hand Psychiatric Medical History: Reports: Hx Bipolar Disorder, Hx Depression Traumatic Medical History: Reports: Hx Fractures - right hand Infectious Medical History: Reports: Hx C-Diff Past Surgical History: Reports: Hx Cardiac Surgery - AAA repair, Hx Orthopedic Surgery - Right hand, Hx Vascular Surgery - Immunizations Immunizations up to date: Yes Hx Diphtheria, Pertussis, Tetanus Vaccination: Yes - 2014 Physical Exam - Vital signs Vitals: Temp Pulse Resp BP Pulse Ox 98.1 F 62 20 172/85 H 98 01/26/20 16:11 01/26/20 16:11 01/26/20 16:11 01/26/20 16:11 01/26/20 16:11 Course - Vital Signs Vital signs: Temp Pulse Resp BP Pulse Ox 98.1 F 62 20 172/85 H 98 01/26/20 16:11 01/26/20 16:11 01/26/20 16:11 01/26/20 16:11 01/26/20 16:11 Doctor's Discharge - Discharge Referrals: NAOMIE CASTANO, WAITER WAITRESS-C [Primary Care Provider] - Follow up as needed
[2020-01-26 18:42] LABS: ABSOLUTE BASOPHILS # (AUTO) 0.1 10^3/uL (0.0-0.2); ABSOLUTE EOSINOPHILS # (AUTO) 0.3 10^3/uL (0.0-0.6); ABSOLUTE LYMPHOCYTES (AUTO) 3.7 10^3/uL (0.5-4.7); ABSOLUTE MONOCYTES (AUTO) 1.1 10^3/uL (0.1-1.4); ABSOLUTE NEUT (AUTO) 7.9 10^3/uL (1.7-8.2); BASOPHILS % (AUTO) 0.5 % (0-2); HEMATOCRIT 46.1 % (37.9-51.0); HEMOGLOBIN 15.9 g/dL (13.5-17.0); LYMPHOCYTES % (AUTO) 28.8 % (13-45); MEAN CORPUSCULAR HEMOGLOBIN 32.4 pg (27.0-33.4); MEAN CORPUSCULAR HGB CONC 34.6 g/dL (32.0-36.0); MEAN CORPUSCULAR VOLUME 94 fl (80-97); MONOCYTES % (AUTO) 8.1 % (3-13); PLATELET COUNT 176 10^3/uL (150-450); RED BLOOD COUNT 4.91 10^6/uL (4.35-5.55); RED CELL DISTRIBUTION WIDTH 14.4 % (11.5-14.0); SEGMENTED NEUTROPHILS % (AUTO) 60.6 % (42-78); TOTAL CELLS COUNTED % (AUTO) 100 %
[2020-01-26 18:51] LABS: PARTIAL THROMBOPLASTIN TIME 24.2 SEC (23.5-35.8)
[2020-01-26 18:54] LABS: INTERNATIONAL RATION (INR) 0.92; PROTHROMBIN TIME 12.4 SEC (11.4-15.4)
[2020-01-26 19:00] LABS: ANION GAP 11 (5-19); BLOOD UREA NITROGEN 25 mg/dL (7-20); CALCIUM 10.7 mg/dL (8.4-10.2); CARBON DIOXIDE 27 mmol/L (22-30); CHLORIDE 101 mmol/L (98-107); GLUCOSE 111 mg/dL (75-110); POTASSIUM 4.5 mmol/L (3.6-5.0)
[2020-01-26] MEDS ORDERED: OXYCODONE HCL IR 5 MG TABLET PO ONE (20:59)
--- NOTE | 2020-01-26 22:11 | RADIOLOGY REPORT (SQ) ---
EXAM DESCRIPTION: US LOWER EXTREMITY ARTERIES BILATERAL COMPLETED DATE/TME: 01/26/2020 18:39 CLINICAL HISTORY: 49 years, Male, diminished pulses bilaterally COMPARISON: CTA runoff performed on 08/12/2018 TECHNIQUE: Axial 2-D grayscale images of the lower extremities were acquired. Doppler was utilized. LIMITATIONS: None. FINDINGS: RIGHT LOWER EXTREMITY: The measured peak velocities are as follows (cm/s): GLOBAL PRESIDENT: 154 cm/s; triphasic waveform Profunda: 87.4 cm/s; triphasic waveform SFA proximal: 110 cm/s; biphasic waveform SFA mid: 96.2 cm/s; biphasic waveform SFA distal: 83 cm/s; biphasic waveform Popliteal: 90 cm/s; biphasic waveform Proximal posterior tibial: 61.6 cm/s; biphasic waveform Distal posterior tibial: 88 cm/s; biphasic waveform Mid peroneal: 37.5 cm/s; biphasic waveform Proximal anterior tibial: 50.3 cm/s; biphasic waveform Distal anterior tibial: 38.8 cm/s; biphasic waveform Dorsalis pedis: 73.2 cm/s; biphasic waveform LEFT LOWER EXTREMITY: The measured peak velocities are as follows (cm/s): GLOBAL PRESIDENT: 66.7 cm/s; monophasic waveform Profunda: 25.1 cm/s; monophasic waveform SFA proximal: 60.1 cm/s; monophasic waveform SFA mid: 42.2 cm/s; monophasic waveform SFA distal: 36.3 cm/s; monophasic waveform Proximal popliteal: 18 cm/s; monophasic waveform Distal popliteal: 16.4 cm/s; monophasic waveform Proximal posterior tibial: 12 cm/s; monophasic waveform Distal posterior tibial: 10.8 cm/s; monophasic waveform Proximal anterior tibial: 8.25 cm/s; monophasic waveform Mid anterior tibial: 8.25 cm/s; monophasic waveform Distal anterior tibial: 7.3 cm/s; monophasic waveform Dorsalis pedis: 12.4 cm/s; monophasic waveform Mid peroneal: 26.7 cm/s; monophasic waveform IMPRESSION: Monophasic waveforms with significantly diminished velocities within the outflow/runoff vasculature about the left lower extremity, suggestive of some degree of the lower extremity arterial disease,, likely most pronounced within the inflow vessels. However, despite the significantly slow flow within the outflow/runoff vessels, there is apparent three-vessel runoff. No evidence of flow significant stenosis or arterial occlusion within the right lower extremity. copyright 2010 [employer]- All Rights Reserved
[2020-01-27 02:07] VITALS: BP 195/103
== END 2020-01-27 02:49 | disposition left against medical advice (07) ==
LOC: ER 16:03
DX: M79.605 Pain in left leg (principal); I10 Essential (primary) hypertension; J44.9 Chronic obstructive pulmonary disease, unspecified; Z88.8 Allergy status to other drugs, medicaments and biological substances; Z88.6 Allergy status to analgesic agent; Z88.5 Allergy status to narcotic agent; Z53.20 Procedure and treatment not carried out because of patient's decision for unspecified reasons
CPT/HCPCS: 36415; 80048; 85025; 85610; 85730; 93925; 99281

== ENCOUNTER 2020-04-04 16:06 | Emergency (ER) | payer SELFPAY ==
[2020-04-04 16:27] VITALS: BP 158/90
--- NOTE | 2020-04-04 16:56 | ER Document Report ---
ED Medical Screen (RME) - General Chief Complaint: Cough Stated Complaint: COUGH Time Seen by Provider: 04/04/20 16:53 Primary Care Provider: NAOMIE CASTANO FNP-C [Primary Care Provider] - Follow up as needed Mode of Arrival: Ambulatory Information source: Patient Notes: 49-year-old male presented to ED for complaint of cough congestion fever runny nose. He states he was helping somebody on Saturday that had some upper respiratory infection and symptoms and then he started getting sick the next day and has not been able to get over it. He states he was tested for COVID about 2 weeks ago but he just saw this person Saturday. He states he is come to the emergency room because he can get over this cough and congestion. He states he does smoke 1/2 pack a day does not drink or do any drugs. He does have a history of bronchitis high blood pressure. He states he does not work and lives with his mother. Patient is alert oriented respirations regular nonlabored but his cough and runny nose throughout the whole exam. I have greeted and performed a rapid initial assessment of this patient. A comprehensive ED assessment and evaluation of the patient, analysis of test results and completion of medical decision making process will be conducted by an additional ED providers. TRAVEL OUTSIDE OF THE [place] IN LAST 30 DAYS: No - Related Data Allergies/Adverse Reactions: ketorolac [From Toradol] Allergy (Verified 01/01/20 15:00) morphine Allergy (Verified 01/01/20 15:00) permethrin Allergy (Verified 01/01/20 15:00) Past Medical History - Social History Family history: None, Reviewed & Not Pertinent - Past Medical History Cardiac Medical History: Reports: Hx Hypertension, Hx Peripheral Vascular Disease Denies: Hx Heart Attack Pulmonary Medical History: Reports: Hx Bronchitis, Hx COPD Denies: Hx Asthma Neurological Medical History: Reports: Hx Migraine, Hx Seizures Renal/ Medical History: Denies: Hx Peritoneal Dialysis Musculoskeltal Medical History: Denies Hx Arthritis, Reports Hx Musculoskeletal Trauma - right hand Psychiatric Medical History: Reports: Hx Bipolar Disorder, Hx Depression Traumatic Medical History: Reports: Hx Fractures - right hand Infectious Medical History: Reports: Hx C-Diff Past Surgical History: Reports: Hx Cardiac Surgery - AAA repair, Hx Orthopedic Surgery - Right hand, Hx Vascular Surgery - Immunizations Immunizations up to date: Yes Hx Diphtheria, Pertussis, Tetanus Vaccination: Yes - 2014 Physical Exam - Vital signs Vitals: Temp Pulse Resp BP Pulse Ox 98.2 F 112 H 20 158/90 H 94 04/04/20 16:12 04/04/20 16:12 04/04/20 16:12 04/04/20 16:12 04/04/20 16:12 Course - Vital Signs Vital signs: Temp Pulse Resp BP Pulse Ox 98.2 F 112 H 20 158/90 H 94 04/04/20 16:12 04/04/20 16:12 04/04/20 16:12 04/04/20 16:12 04/04/20 16:12 Doctor's Discharge - Discharge Referrals: NAOMIE CASTANO, LONG TERM CARE ADMINISTRATOR-C [Primary Care Provider] - Follow up as needed
== END 2020-04-04 19:50 | disposition left against medical advice (07) ==
LOC: ER 16:06
DX: Z53.20 Procedure and treatment not carried out because of patient's decision for unspecified reasons (principal); R05 Cough; R09.81 Nasal congestion; R50.9 Fever, unspecified; R09.89 Other specified symptoms and signs involving the circulatory and respiratory systems; F17.200 Nicotine dependence, unspecified, uncomplicated; Z88.8 Allergy status to other drugs, medicaments and biological substances; I10 Essential (primary) hypertension
CPT/HCPCS: 99281